=== PATIENT | male | born 1940 | race Caucasian/White ===

== ENCOUNTER → 2016-05-06 | Outpatient (CLI) | payer MEDICARE ==
[2016-05-06 14:07] LABS: CH 31.7; CHCM 34.2; HCT 39.3 % (39.0-53.0); HGB 13.1 gm/dL (13.0-17.5); MCH 31.1 pg (25.0-35.0); MCHC 33.4 g/dL (31.0-37.0); MCV 93.1 fL (80.0-100.0); Mean Platelet Volume 6.8; RBC 4.22 m/uL (4.30-5.90); RDW 14.7 % (11.5-15.5); WBC 7.7 k/uL (3.8-10.6)
[2016-05-06 14:10] LABS: INR 2.6 (<1.1); Prothrombin Time 24.6 sec (9.0-12.0)
[2016-05-06 14:48] LABS: Anion Gap 12 mmol/L; Blood Urea Nitrogen 15 mg/dL (9-20); Calcium 9.4 mg/dL (8.4-10.2); Carbon Dioxide 26 mmol/L (22-30); Chloride 97 mmol/L (98-107); Glucose 135 mg/dL (74-99); Non-African American GFR(MDRD) >60 (>60 ml/min/1.73 sqM); Potassium 4.5 mmol/L (3.5-5.1); Sodium 135 mmol/L (137-145)
== END | disposition home or self-care (01) ==
LOC: LABWHC1 13:24
PROVIDERS: ATTEND Internal Medicine Clinical Cardiac Electrophysiology
DX: I10 Essential (primary) hypertension (principal); I42.8 Other cardiomyopathies; I44.2 Atrioventricular block, complete
CPT/HCPCS: 36415; 80048; 85027; 85610

== ENCOUNTER 2016-05-13 13:50 | Day surgery (SDC) | payer MEDICARE ==
[2016-05-07 10:28] VITALS: BMI 27.3
[~2016-05-13 13:50] MED LIST: CLINDAMYCIN 600 MG in SODIUM CHLORIDE 0.9% IRRIGATIO 250 ML IRRIGATION ONE; CLINDAMYCIN 900 MG in DEXTROSE 5% IN WATER 50 ML IVPB ONE
[2016-05-13] MEDS: SODIUM CHLORIDE 0.9% 1,000 ML IV SCH ×2 (14:06→18:34)
[2016-05-13 14:19] LABS: Glucose,Whole Blood 71 mg/dL (75-99)
[2016-05-13 14:33] LABS: INR 2.2 (<1.1); Prothrombin Time 20.8 sec (9.0-12.0)
[2016-05-13] MEDS ORDERED: diphenhydrAMINE 50 MG/ML 1 ML VIAL ONE (16:13)
[2016-05-13] MEDS ORDERED: MIDAZOLAM 2 MG/2 ML VIAL ONE (16:13)
[2016-05-13] MEDS ORDERED: fentaNYL (PF) 50 MCG/ML 2 ML AMP ONE (16:13)
[2016-05-13] MEDS ORDERED: CLINDAMYCIN 150 MG/ML 4 ML VIAL IVPB ONE (16:21)
[2016-05-13] MEDS ORDERED: LIDOCAINE 2% INJ 20 MG/ML SQ ONE (16:38)
[2016-05-13] MEDS ORDERED: LIDOCAINE 1% INJ 10MG/ML (20 ML MDV) SQ ONE (16:55)
[2016-05-13] MEDS ORDERED: ACETAMINOPHEN TAB 325 MG TAB PO PRN (17:27)
[2016-05-13] MEDS ORDERED: HYDROcodone/APAP 5-325MG 1 EACH TAB PO PRN (17:27)
[2016-05-13] MEDS: metFORMIN 500 MG TAB PO SCH (19:27)
[2016-05-13] MEDS: LACTATED RINGERS 1,000 ML IV SCH (20:06)
[2016-05-13 20:37] LABS: Glucose,Whole Blood 122 mg/dL (75-99)
[2016-05-13] MEDS: SOTALOL 80 MG TAB PO SCH (20:45)
[2016-05-13] MEDS: METOPROLOL TARTRATE 25 MG TAB PO SCH (20:45)
[2016-05-13] MEDS ORDERED: LOSARTAN 50 MG TAB PO SCH (21:00)
[2016-05-13] MEDS ORDERED: ATORVASTATIN 10 MG TAB PO SCH (21:00)
[2016-05-13] MEDS ORDERED: ASPIRIN 81 MG CHEW PO SCH (21:00)
--- NOTE | 2016-05-13 21:43 | PCN ---
DATE OF PROCEDURE: Mr. Bennie Blake is 76-year-old male patient who has a dual-chamber biventricular ICD. He has complete heart block. He also has a history of ventricular tachycardia and is on antiarrhythmic drug therapy. He was brought in for biventricular ICD generator change for a battery on advisory because he has complete heart block as well as ventricular tachyarrhythmias. PROCEDURE #1: Transvenous temporary pacemaker placement. The right groin was prepped and draped as per protocol. Lidocaine 1% was used for local anesthesia. A 6 Polish sheath was placed in the right femoral vein. Via this a quadripolar catheter was positioned in the RV. Pacing threshold was less than 1 mA. Pacing was performed through the procedure and this TVP was removed under fluoroscopy at the end of the procedure. Hemostasis was assured. PROCEDURE #2: The left pectoral area was prepped and draped as per protocol. Lidocaine 1% was used for local anesthesia. An incision was made directly over the previous surgical site and carried down to the level of the generator. The generator was explanted. Partial capsulectomy was performed. Pocket irrigation was performed. The explanted generator was a [employer] model #3265-40, serial #[id number]. This was originally implanted in 2012. The new generator that was implanted was a [employer] model #PM8633-51W, serial #[id number]. This was then connected to the pacemaker leads. The P waves were 2.2 mV. Atrial pacing impedance 440 ohms. Atrial pacing threshold 0.75 v at 0.5 ms. The RV pacing impedance was 350 ohms. Pacing threshold 1.25 v at 0.5 ms. LV pacing impedance pacing was 940 ohm. Pacing threshold was 1.125 v at 0.6 ms. The device was programmed to DDDR at ( ) bpm. MADIT-RIT programming was programmed with appropriate antitachycardia pacing, cardioversion and defibrillation. This time DFT testing was not performed and will be deferred until later. RESULT: Successful ICD generator change for device on advisory. Transvenous temporary pacing was performed prior to the generator change. Patient tolerated the procedure well without any acute complications.
[2016-05-13] MEDS: CLINDAMYCIN 900 MG in DEXTROSE 5% IN WATER 50 ML IVPB SCH ×2 (22:45)
[2016-05-14] MEDS: LACTATED RINGERS 1,000 ML IV SCH (04:53)
[2016-05-14] MEDS: CLINDAMYCIN 900 MG in DEXTROSE 5% IN WATER 50 ML IVPB SCH ×6 (04:53→16:36)
[2016-05-14] MEDS ORDERED: LEVOTHYROXINE 75 MCG TAB PO SCH (06:30)
[2016-05-14 07:20] LABS: Glucose,Whole Blood 129 mg/dL (75-99)
[2016-05-14] MEDS ORDERED: PANTOPRAZOLE 40 MG TABLET PO SCH (07:30)
[2016-05-14] MEDS: SOTALOL 80 MG TAB PO SCH (08:27)
[2016-05-14] MEDS: METOPROLOL TARTRATE 25 MG TAB PO SCH (08:27)
[2016-05-14] MEDS ORDERED: SPIRONOLACTONE 25 MG TAB PO SCH (09:00)
--- NOTE | 2016-05-14 10:47 | PN ---
Mr. Bennie Blake is doing well. He has no chest pain. No dizziness, lightheadedness. He is lying comfortably in bed. His ICD generator change site is healing well without any hematoma. He is afebrile. His pulse rate is in the 50s. Blood pressure 119/63. Heart sounds are normal. Breath sounds are normal. No S3 gallop. No rhonchi. No crackles. Abdomen is soft, nontender. Extremities are warm. No edema. IMPRESSION: 1. History of cardiomyopathy. 2. History of complete heart block. 3. History of ventricular tachycardia requiring therapies. Status post Bi-V ICD implant with [employer] generator on advisory. ICD generator change yesterday doing well. PLAN: Discharge home after completion of IV antibiotics and follow up in the office in 5 days in the device clinic and follow up with primary [employer] supervisor.
[2016-05-14 12:15] LABS: Glucose,Whole Blood 119 mg/dL (75-99)
[2016-05-14 15:20] VITALS: BP 109/64; PULSE 54; RESP 16; TEMP 98.4
[2016-05-14 17:24] LABS: Glucose,Whole Blood 126 mg/dL (75-99)
[2016-05-14] MEDS: metFORMIN 500 MG TAB PO SCH (17:49)
== END 2016-05-14 18:13 | disposition home or self-care (01) ==
LOC: CATHEP 13:50 → 3OBS 17:40 → CATHEP 05-14 18:13
PROVIDERS: ATTEND Internal Medicine Clinical Cardiac Electrophysiology
DX: Z45.02 Encounter for adjustment and management of automatic implantable cardiac defibrillator (principal); I42.0 Dilated cardiomyopathy; I44.2 Atrioventricular block, complete; I47.2 Ventricular tachycardia; I11.0 Hypertensive heart disease with heart failure; I50.9 Heart failure, unspecified; E78.5 Hyperlipidemia, unspecified; I48.0 Paroxysmal atrial fibrillation; I25.10 Atherosclerotic heart disease of native coronary artery without angina pectoris; Z95.1 Presence of aortocoronary bypass graft; E07.9 Disorder of thyroid, unspecified; E11.9 Type 2 diabetes mellitus without complications; J44.9 Chronic obstructive pulmonary disease, unspecified; K21.9 Gastro-esophageal reflux disease without esophagitis; Z79.01 Long term (current) use of anticoagulants; Z79.84 Long term (current) use of oral hypoglycemic drugs; Z79.82 Long term (current) use of aspirin; Z79.899 Other long term (current) drug therapy; Z88.0 Allergy status to penicillin; Z87.891 Personal history of nicotine dependence
CPT/HCPCS: 33264; 85610; C1894; C1769 ×2; C1730; C1882; J2001 ×2; 99152; 99153

== ENCOUNTER → 2016-07-11 | Outpatient (CLI) | payer MEDICARE ==
--- NOTE | 2016-07-11 09:45 | CT ---
EXAMINATION TYPE: CT chest w con DATE OF EXAM: 07/11/2016 9:32 AM COMPARISON: Previous study dated 09/16/2013 HISTORY: Rib pain. Melanoma. CT DLP: 653 mGycm Automated exposure control for dose reduction was used. CONTRAST: CT scan of the chest is performed with IV Contrast, patient injected with 100 ml mL of Omnipaque 300. FINDINGS: There is apical scarring present bilaterally. There is mild interstitial change in the uppe r lobes bilaterally. No parenchymal nodules are seen. There is no significant axillary, mediastinal or hilar adenopathy. There is no pleural or pericardial fluid. The heart is not enlarged. There is a bipolar pacemaker in place. There is moderate hiatal hernia present. There is a lobulated 1.4 cm low attenuating lesion within the posterior segment of the right lobe of the liver. The gallbladder has been removed. There is been interval development of bilateral adrenal mass lesions. That on the right measures 4.4 cm. That on the left measures 7.6 cm. Visualized portions of the upper abdomen are otherwise normal. There is mild hypertrophic spondylosis within the spine. IMPRESSION: 1. Interval development of large, bilateral adrenal masses. 2. Stable low attenuating lesion within the liver. 3. Interstitial change within the lungs. 4. Moderate hiatal hernia. 5. Degenerative changes within the spine.
== END | disposition home or self-care (01) ==
LOC: RADCTMAIN 08:53
PROVIDERS: ATTEND Internal Medicine Hematology & Oncology
DX: Z03.89 Encounter for observation for other suspected diseases and conditions ruled out (principal); C43.70 Malignant melanoma of unspecified lower limb, including hip; E27.9 Disorder of adrenal gland, unspecified; R07.81 Pleurodynia; R68.89 Other general symptoms and signs; Z88.0 Allergy status to penicillin
CPT/HCPCS: 71260; Q9967

== ENCOUNTER → 2016-11-04 | Outpatient (CLI) | payer MEDICARE ==
[2016-11-04 09:54] LABS: Blood Urea Nitrogen 14 mg/dL (9-20); Non-African American GFR(MDRD) >60 (>60 ml/min/1.73 sqM)
--- NOTE | 2016-11-04 11:57 | CT ---
EXAMINATION TYPE: CT ChestAbdPelvis w con DATE OF EXAM: 11/04/2016 COMPARISON: 07/11/[address] chest abdomen pelvis 09/16/2013 HISTORY: Melanoma CT DLP: 1488 mGycm CONTRAST: CT scan of the chest, abdomen and pelvis is performed with Oral Contrast and with IV Contrast, patien t injected with 100 mL of Omnipaque 300. CT Chest: LUNGS: The lungs are clear and free of infiltrate or atelectasis. No pulmonary nodule or mass is det ected. No evidence for pleural effusion. MEDIASTINUM: Thoracic aorta is of normal caliber. The heart is enlarged. No evidence for mediastin al mass or adenopathy. Small fixed sliding-type hiatal hernia. HILAR STRUCTURES: No evidence for mass. No hilar adenopathy is appreciated. OTHER: No significant abnormality. CONTRAST CT ABDOMEN AND PELVIS FINDINGS: LIVER/GB: No calcified gallstones. Stable hypoattenuating lesion within the posterior segment right hepatic lobe measuring 1.7 cm. No additional lesions identified. Biliary tree is of normal caliber. PANCREAS: No inflammation. No distinct mass. SPLEEN: No splenic enlargement. No lesion seen. ADRENALS: Bilateral adrenal masses persist although are smaller in size. Right sided mass measures 2. 5 cm versus 4.4 cm previously. Left-sided adrenal mass measures 6.5 cm versus 7.6 cm previously. KIDNEYS/BLADDER: No hydronephrosis. No nephrolithiasis. No disctinct renal mass. Persistent disten tion of the urinary bladder with prostate enlargement and likely on the basis of bladder outlet obstr uction. BOWEL: Normal appendix. Normal bowel caliber. No inflammation. GENITAL ORGANS: Prostate gland enlargement. LYMPH NODES: No greater than 1cm abdominal or pelvic lymph nodes are appreciated. AORTA: No significant abnormality. OSSEOUS STRUCTURES: Lucent lesions of T5, L2 and L4 were present on prior examination of 2013 and rev eal no significant interval change. OTHER: No significant additional abnormality is seen. IMPRESSION: 1. Adrenal masses persist although are smaller in size. 2. Stable hepatic lesion which may reflect a cyst. 3. Stable lucent lesions of the spine as discussed above. No new lesions identified at this time.
== END | disposition home or self-care (01) ==
LOC: RADCTMAIN 09:19
PROVIDERS: ATTEND Internal Medicine Hematology & Oncology
DX: C43.70 Malignant melanoma of unspecified lower limb, including hip (principal); E27.8 Other specified disorders of adrenal gland; K76.89 Other specified diseases of liver
CPT/HCPCS: 82565; 84520; 71260; 74177; 36415; Q9967

== ENCOUNTER → 2017-01-27 | Outpatient (CLI) | payer MEDICARE ==
[2017-01-27 11:45] LABS: Blood Urea Nitrogen 15 mg/dL (9-20); Non-African American GFR(MDRD) >60 (>60 ml/min/1.73 sqM)
--- NOTE | 2017-01-27 13:05 | CT ---
EXAMINATION TYPE: CT ChestAbdPelvis w con DATE OF EXAM: 01/27/2017 COMPARISON: 11/04/2016 HISTORY: Melanoma CT DLP: 1534.6 mGycm Automated exposure control for dose reduction was used. CONTRAST: CT scan of the chest, abdomen and pelvis is performed with Oral Contrast and with IV Contrast, patien t injected with 100 mL of Omnipaque 300. FINDINGS: LUNGS: The lungs are grossly clear, there is no concerning parenchymal mass or nodule identified. T here is no pleural effusion or pneumothorax seen. The tracheobronchial tree is patent. Small blebs a re noted. MEDIASTINUM: There is stable 1.1 cm in short axis lymphadenopathy in the subcarinal region unchanged from prior exam. Additional areas of shotty adenopathy noted.Small hiatal hernia. Heart is enlarged. Biapical pleural thickening noted. Cardiac device noted. OTHER: No additional significant abnormality is seen. LIVER/GB: Stable hypodense lesion within the posterior segment right lobe the liver measuring 1.7 cm. . Postcholecystectomy changes stable. PANCREAS: No significant abnormality is seen. SPLEEN: No significant abnormality is seen. ADRENALS: Left adrenal mass measures 6.5 cm and is stable. Right adrenal mass measures 2.4 cm is stab le. KIDNEYS: No significant abnormality is seen. BOWEL: Diverticulosis of the colon noted. Appendix normal.. LYMPH NODES: No greater than 1 cm abdominal or pelvic lymph nodes are appreciated. OSSEOUS STRUCTURES: Lucent lesions involving T5, L2, L3 and L4 are stable. Facet arthropathy and hype rtrophic and degenerative changes are noted. Appears to be a left pedicular involvement at L4 related to the lucent lesion. This is retrospectively stable dating back to 2013. OTHER: Prostate is enlarged and the bladder is distended with a bladder diverticulum. IMPRESSION: 1. Stable adrenal masses bilaterally. 2. Stable hepatic lesion. 3. Stable lucent lesions involving the vertebral column. Suspect left pedicular involvement at L4 and right pedicular involvement of L3. This may encroach upon the neural foramina. Degree of Canal steno sis also suspected. This is stable dating back to 2013. 5. The prostate is enlarged and the bladder is markedly distended correlate for obstruction. 6. There is a stable left mid abdominal mesenteric mass measuring 1.9 cm unchanged from the previous exam. This may represent an area of adenopathy or a primary mesenteric mass. However, findings are u nchanged from the most recent exam of 2017 but not identified on the exam of 2014. 7 there is a stable hiatal hernia however contrast is seen extending up into the upper thoracic esoph candida which may place the patient at risk for developing aspiration. Correlate clinically.
== END | disposition home or self-care (01) ==
LOC: RADCTMAIN 10:49
PROVIDERS: ATTEND Internal Medicine Hematology & Oncology
DX: N40.0 Benign prostatic hyperplasia without lower urinary tract symptoms (principal); K76.89 Other specified diseases of liver; E27.8 Other specified disorders of adrenal gland; N32.89 Other specified disorders of bladder; K44.9 Diaphragmatic hernia without obstruction or gangrene; C43.70 Malignant melanoma of unspecified lower limb, including hip
CPT/HCPCS: 82565; 84520; 71260; 74177; 36415; Q9967

== ENCOUNTER 2017-02-23 10:08 | Emergency (ER) | payer MEDICARE ==
[2017-02-23 10:19] VITALS: RESP 18
[2017-02-23] MEDS ORDERED: SODIUM CHLORIDE 0.9% 500 ML IV STA ×2 (10:22→11:55)
[2017-02-23] MEDS ORDERED: RX INFO: IV CONTRAST WAS GIVEN 1 EACH MISC MISCELLANE PRN (10:22)
[2017-02-23] MEDS ORDERED: ONDANSETRON 4 MG/2 ML VIAL IVP STA (10:22)
[2017-02-23 10:51] LABS: Basophils % (A) 1 %; CH 33.8; CHCM 35.9; Eosinophils # (A) 0.5 k/uL (0-0.7); Eosinophils % (A) 7 %; HCT 29.8 % (39.0-53.0); HDW 3.32; HGB 10.2 gm/dL (13.0-17.5); Luc # (Auto) 0.17; Luc % (Auto) 2; Lymphocytes # (A) 2.1 k/uL (1.0-4.8); Lymphocytes % (A) 29 %; MCH 32.4 pg (25.0-35.0); MCHC 34.2 g/dL (31.0-37.0); MCV 94.6 fL (80.0-100.0); Mean Platelet Volume 7.2; Monocytes # (A) 0.8 k/uL (0-1.0); Monocytes % (A) 11 %; Neutrophils # (A) 3.6 k/uL (1.3-7.7); Neutrophils % (A) 49 %; RBC 3.15 m/uL (4.30-5.90); RDW 13.2 % (11.5-15.5); WBC 7.2 k/uL (3.8-10.6); WBC (Perox) 7.73
--- NOTE | 2017-02-23 10:53 | ED ---
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 Stevens oncologist) and radiation in 2013, COPD, diabetes, GERD, hyperlipidemia, prostate disorder, thyroid disorder, AICD placement and CABG presenting for evaluation of nausea and vomiting for the last 2 weeks. He states onset was gradual and has progressively worsened. He denies any associated abdominal pain, diarrhea, fevers, chills, chest pain, shortness of breath. Last chemo was last Thursday and he states that he doesn't have any associated abnormal symptoms following treatments. Reason for coming in today and not earlier was due to worsening weakness today nearly resulting in a fall however his was able to catch him. He denies any syncope/presyncope. He has not followed up with his PCP or his oncologist concerning these symptoms. - Related Data Home Medications Medication Instructions Recorded Confirmed Aspirin 81 mg PO HS 10/09/14 02/23/17 Atorvastatin [Lipitor] 10 mg PO HS 10/09/14 02/23/17 Levothyroxine Sodium [Synthroid] 75 mcg PO DAILY 10/09/14 02/23/17 Omeprazole [PriLOSEC] 20 mg PO QAM 10/09/14 02/23/17 Oxybutynin Chloride [Ditropan] 5 mg PO HS 10/09/14 02/23/17 Sotalol HCl [Sotalol] 160 mg PO BID 10/09/14 02/23/17 Spironolactone [Aldactone] 12.5 mg PO DAILY 10/09/14 02/23/17 Warfarin Sodium [Warfarin Sodium] 5 mg PO SUMOWEFRSA 10/09/14 02/23/17 metFORMIN HCL [Glucophage] 500 mg PO AC-SUPPER 10/09/14 02/23/17 Docusate [Colace] 100 mg PO BID 12/03/15 02/23/17 Losartan Potassium 100 mg PO HS 12/03/15 02/23/17 Metoprolol Tartrate [Lopressor] 25 mg PO BID 11/13/17 11/13/17 Warfarin [Coumadin] 2.5 mg PO TUTH 02/23/17 02/23/17 Previous Rx's Medication Instructions Recorded Ondansetron [Zofran ODT] 4 mg PO Q8HR #7 tab 02/23/17 Allergies Allergy/AdvReac Type Severity Reaction Status Date / Time Penicillins Allergy Unknown Verified 02/23/17 11:04 Childhood Review of Systems ROS Statement: Those systems with pertinent positive or pertinent negative responses have been documented in the HPI. ROS Other: All systems not noted in ROS Statement are negative. Constitutional: Reports: weakness. Denies: fever, chills, night sweats Eyes: Denies: eye discharge, vision change ENT: Denies: throat pain, congestion Respiratory: Denies: cough, dyspnea, wheezes Cardiovascular: Denies: chest pain, palpitations, dyspnea on exertion Endocrine: Reports: fatigue. Denies: polydipsia, polyuria Gastrointestinal: Reports: nausea, vomiting. Denies: abdominal pain, diarrhea, hematemesis, melena, hematochezia Genitourinary: Denies: urgency, dysuria Musculoskeletal: Denies: back pain, joint swelling Skin: Denies: rash, lesions Neurological: Reports: weakness (Generalized). Denies: headache, numbness, paresthesias, abnormal gait, vertigo Psychiatric: Denies: anxiety, depression Hematological/Lymphatic: Denies: easy bleeding, easy bruising Past Medical History Past Medical History: COPD, Diabetes Mellitus, GERD/Reflux, Hyperlipidemia, Prostate Disorder, Thyroid Disorder Additional Past Medical History / Comment(s): SEE DR ZIMMER'S H&P,INCREASED FATIGUE,EMPHYSEMA,BRONCHITIS, MALIGNANT MELANOMA METS TO SPINE REC 6 TX RADIATION-APR 2013 History of Any Multi-Drug Resistant Organisms: None Reported Past Surgical History: AICD, Coronary Bypass/CABG Additional Past Surgical History / Comment(s): CABG-"CLEANED PUMONARY ARTERY", MELANOMA AND 10 LYMPHNODES REMOVED RT LEG,ORCHIECTOMY,REPAIR FINGER AMPUTATON Past Anesthesia/Blood Transfusion Reactions: No Reported Reaction Type of Cardiac Device: AICD Device Placement Date:: 2012 [facility] LT CHEST Past Psychological History: No Psychological Hx Reported Smoking Status: Former smoker Past Alcohol Use History: None Reported Past Drug Use History: None Reported - Past Family History Mother Family Medical History: Cancer Additional Family Medical History / Comment(s): cervical cancer Father Family Medical History: Myocardial Infarction ([place]) Son(s) Family Medical History: Myocardial Infarction ([place]) Additional Family Medical History / Comment(s): SONS X 2 General Exam Limitations: no limitations General appearance: alert, in no apparent distress Head exam: Present: atraumatic, normocephalic, normal inspection Eye exam: Present: normal appearance, PERRL, EOMI. Absent: scleral icterus, conjunctival injection, periorbital swelling ENT exam: Present: mucous membranes dry, normal external ear exam. Absent: mucous membranes moist Neck exam: Present: normal inspection. Absent: tenderness, meningismus, lymphadenopathy Respiratory exam: Present: normal lung sounds bilaterally. Absent: respiratory distress, wheezes, rales, rhonchi, stridor Cardiovascular Exam: Present: regular rate, normal rhythm, normal heart sounds. Absent: systolic murmur, diastolic murmur, rubs, gallop, clicks GI/Abdominal exam: Present: soft, normal bowel sounds. Absent: distended, tenderness, guarding, rebound, rigid Rectal exam: Present: deferred Extremities exam: Present: normal inspection, full ROM, normal capillary refill. Absent: tenderness, pedal edema, joint swelling, calf tenderness Back exam: Present: normal inspection, full ROM Neurological exam: Present: alert, oriented X3, CN II-XII intact, normal gait Psychiatric exam: Present: normal affect, normal mood Skin exam: Present: warm, dry, intact, normal color Course Vital Signs 02/23/17 02/23/17 02/23/17 10:09 10:22 12:18 Temperature 99.4 F 99.2 F Pulse Rate 67 61 61 Respiratory 18 18 18 Rate Blood Pressure 104/52 92/55 O2 Sat by Pulse 96 96 97 Oximetry 02/23/17 13:27 Temperature 98.7 F Pulse Rate 60 Respiratory 18 Rate Blood Pressure 110/54 O2 Sat by Pulse 96 Oximetry Medical Decision Making - Medical Decision Making 77-year-old male with past medical history as noted in HPI presenting for evaluation of nausea and vomiting for the past 2 weeks. On physical exam he is in no apparent distress resting comfortably in bed, a and O 3 and answering all questions appropriately. Abdomen is soft and nontender without peritoneal signs of guarding, rigidity, or rebound. Lungs are clear to auscultation bilaterally. He does have dry mucous membranes orally which coincides with his history of nausea and vomiting with decreased oral intake however he claims this is due to decreased appetite and not due to pain. Remainder of exam is benign. We will obtain labs, EKG, and CT abdomen and pelvis. Also provide a small IV fluid bolus and Zofran. Labs significant for an elevated INR at 3.8 and a creatinine of 1.41. Patient given another bolus of normal saline IV fluids. CT abdomen and pelvis showed no acute process and no changes in previous abnormalities. He was reevaluated and had resolution of his nausea. He also stated that he felt like he had more energy and was ambulatory to the hallway without ataxia or unsteady gait. Results were discussed with the patient and he stated at this time he would be comfortable being discharged if he could follow-up with his primary care doctor within the next couple days. Dr. Frye was informed of all results and agreed with plan to have the patient discharged and to follow-up in his office either tomorrow or Thursday. The patient was informed of this discussion and advised to make an appointment today. He is further advised to return to this facility if his symptoms should worsen or persist. The patient acknowledged an understanding of this information and agreed with this plan of care. - Lab Data Result diagrams: 02/23/17 10:22 02/23/17 10:22 Lab Results 02/23/17 02/23/17 02/23/17 Range/Units 10:22 10:22 10:22 WBC 7.2 (3.8-10.6) k/uL RBC 3.15 L (4.30-5.90) m/uL Hgb 10.2 L (13.0-17.5) gm/dL Hct 29.8 L (39.0-53.0) % MCV 94.6 (80.0-100.0) fL MCH 32.4 (25.0-35.0) pg MCHC 34.2 (31.0-37.0) g/dL RDW 13.2 (11.5-15.5) % Plt Count 200 (150-450) k/uL Neutrophils % 49 % Lymphocytes % 29 % Monocytes % 11 % Eosinophils % 7 % Basophils % 1 % Neutrophils # 3.6 (1.3-7.7) k/uL Lymphocytes # 2.1 (1.0-4.8) k/uL Monocytes # 0.8 (0-1.0) k/uL Eosinophils # 0.5 (0-0.7) k/uL Basophils # 0.0 (0-0.2) k/uL PT (9.0-12.0) sec INR (<1.2) APTT (22.0-30.0) sec Sodium 134 L (137-145) mmol/L Potassium 3.9 (3.5-5.1) mmol/L Chloride 104 (98-107) mmol/L Carbon Dioxide 20 L (22-30) mmol/L Anion Gap 10 mmol/L BUN 14 (9-20) mg/dL Creatinine 1.41 H (0.66-1.25) mg/dL Est GFR (MDRD) Af Amer 59 (>60 ml/min/1.73 sqM) Est GFR (MDRD) Non-Af 48 (>60 ml/min/1.73 sqM) Glucose 99 (74-99) mg/dL Plasma Lactic Acid Yanick 1.3 (0.7-2.0) mmol/L Calcium 9.0 (8.4-10.2) mg/dL Total Bilirubin 0.8 (0.2-1.3) mg/dL AST 32 (17-59) U/L ALT 34 (21-72) U/L Alkaline Phosphatase 52 (38-126) U/L Troponin I (0.000-0.034) ng/mL NT-Pro-B Natriuret Pep pg/mL Total Protein 6.8 (6.3-8.2) g/dL Albumin 3.4 L (3.5-5.0) g/dL Lipase 55 (23-300) U/L 02/23/17 02/23/17 02/23/17 Range/Units 10:22 10:22 10:22 WBC (3.8-10.6) k/uL RBC (4.30-5.90) m/uL Hgb (13.0-17.5) gm/dL Hct (39.0-53.0) % MCV (80.0-100.0) fL MCH (25.0-35.0) pg MCHC (31.0-37.0) g/dL RDW (11.5-15.5) % Plt Count (150-450) k/uL Neutrophils % % Lymphocytes % % Monocytes % % Eosinophils % % Basophils % % Neutrophils # (1.3-7.7) k/uL Lymphocytes # (1.0-4.8) k/uL Monocytes # (0-1.0) k/uL Eosinophils # (0-0.7) k/uL Basophils # (0-0.2) k/uL PT 37.0 H (9.0-12.0) sec INR 3.8 H (<1.2) APTT 42.3 H (22.0-30.0) sec Sodium (137-145) mmol/L Potassium (3.5-5.1) mmol/L Chloride (98-107) mmol/L Carbon Dioxide (22-30) mmol/L Anion Gap mmol/L BUN (9-20) mg/dL Creatinine (0.66-1.25) mg/dL Est GFR (MDRD) Af Amer (>60 ml/min/1.73 sqM) Est GFR (MDRD) Non-Af (>60 ml/min/1.73 sqM) Glucose (74-99) mg/dL Plasma Lactic Acid Yanick (0.7-2.0) mmol/L Calcium (8.4-10.2) mg/dL Total Bilirubin (0.2-1.3) mg/dL AST (17-59) U/L ALT (21-72) U/L Alkaline Phosphatase (38-126) U/L Troponin I 0.013 (0.000-0.034) ng/mL NT-Pro-B Natriuret Pep 1410 pg/mL Total Protein (6.3-8.2) g/dL Albumin (3.5-5.0) g/dL Lipase (23-300) U/L 02/23/17 10:51 Electronic ventricular pacemaker with a rate of 65, RAYMON 90, QRS 114, QT/QTc 492/ 511. Disposition Clinical Impression: Nausea and vomiting, Dehydration, WILLOW (acute kidney injury), Supratherapeutic INR Disposition: HOME SELF-CARE Condition: Stable Instructions: Acute Nausea and Vomiting (ED), Impaired Kidney Function (ED), Elevated INR (ED) Additional Instructions: Please use medication as discussed. Please follow up with family doctor if symptoms have not improved over the next two days. Please return to the emergency room if your symptoms increase or worsen or for any other concerns. Please hold the Coumadin and do not take another dose until you follow-up with Dr. Frye on Thursday. If you're unable to get an appointment for Thursday either return to this facility or call Dr. Frye office once more. Prescriptions: Ondansetron [Zofran ODT] 4 mg PO Q8HR #7 tab Referrals: Michael Frye DO [Primary Care Provider] - 1-2 days Time of Disposition: 13:38
[2017-02-23 10:56] LABS: INR 3.8 (<1.2); Partial Thromboplastin Time 42.3 sec (22.0-30.0)
[2017-02-23 11:04] LABS: Potassium 3.9 mmol/L (3.5-5.1); Total Bilirubin 0.8 mg/dL (0.2-1.3); Total Protein 6.8 g/dL (6.3-8.2)
--- NOTE | 2017-02-23 11:52 | CT ---
EXAMINATION TYPE: CT abdomen pelvis wo con DATE OF EXAM: 02/23/2017 COMPARISON: 01/27/2017 HISTORY: Nausea and vomiting, history of melanoma on leg CT DLP: 970 mGycm Examination of the solid and hollow viscera is limited given the lack of contrast. FINDINGS: LUNG BASES: No evidence for nodule. No evidence for infiltrate. Fixed hiatal hernia noted. LIVER/GB: Cholecystectomy clips are in place. Stable 2 cm hypoattenuating lesion posterior segment ri ght hepatic lobe may reflect metastatic disease. PANCREAS: No pancreatic mass identified. No inflammatory process seen. SPLEEN: No evidence for splenomegaly. No intrasplenic lesions seen. ADRENALS: Stable adrenal masses measuring approximately 6.2 x 3.7 cm on the left versus 6.4 cm previo usly and 2.5 cm on the right versus 2.4 cm previously. KIDNEYS: The urinary bladder is distended with craniocaudal measurement of 18.7 cm. There is prostate gland enlargement and the findings may be rel ated to bladder outlet obstruction versus neurogenic bladder. BOWEL: Appendix has a normal appearance. No evidence of bowel obstruction. No inflammatory process. Lymph nodes: No evidence for adenopathy greater than 1 cm. Abdominal aorta: Atheromatous changes seen. No evidence for aneurysm. Genital organs: No significant abnormality. Other: Lucent osseous lesions are stable. IMPRESSION: 1. STABLE ADRENAL MASSES. 2. STABLE HEPATIC LESION. 3. STABLE MASS WITHIN THE SMALL BOWEL MESENTERY MEASURING APPROXIMATELY 2.4 CM. 4. Bladder outlet obstruction versus neurogenic bladder unchanged. 5. Prostate gland enlargement. Number 7 6 stable osseous lesions.
[2017-02-23 13:27] VITALS: BP 110/54; PULSE 60; TEMP 98.7
== END 2017-02-23 14:03 | disposition home or self-care (01) ==
LOC: EC 10:08
DX: N17.9 Acute kidney failure, unspecified (principal); R79.1 Abnormal coagulation profile; E86.0 Dehydration; E11.9 Type 2 diabetes mellitus without complications; K21.9 Gastro-esophageal reflux disease without esophagitis; E78.5 Hyperlipidemia, unspecified; N42.9 Disorder of prostate, unspecified; E07.9 Disorder of thyroid, unspecified; Z95.810 Presence of automatic (implantable) cardiac defibrillator; Z95.1 Presence of aortocoronary bypass graft; Z87.891 Personal history of nicotine dependence; Z88.0 Allergy status to penicillin; Z79.899 Other long term (current) drug therapy; Z79.84 Long term (current) use of oral hypoglycemic drugs; Z79.01 Long term (current) use of anticoagulants; Z79.82 Long term (current) use of aspirin; Z53.20 Procedure and treatment not carried out because of patient's decision for unspecified reasons
CPT/HCPCS: 36415; 74176; 80053; 83605; 83690; 83880; 84484; 85025; 85610; 85730; 93005; 96360; 96361; 99285

== ENCOUNTER → 2017-05-05 | Outpatient (CLI) | payer MEDICARE | END | disposition home or self-care (01) | LOC: LABWHC1 11:27 | PROVIDERS: ATTEND Internal Medicine Endocrinology, Diabetes & Metabolism | DX: E03.8 Other specified hypothyroidism (principal); E27.40 Unspecified adrenocortical insufficiency | CPT/HCPCS: 36415; 82024; 84443 ==

== ENCOUNTER 2017-05-21 05:54 | Day surgery (SDC) | payer MEDICARE ==
[2017-05-13 13:38] VITALS: BMI 27.3
[~2017-05-21 05:54] MED LIST changes: -CLINDAMYCIN 600 MG in SODIUM CHLORIDE 0.9% IRRIGATIO 250 ML IRRIGATION ONE; -CLINDAMYCIN 900 MG in DEXTROSE 5% IN WATER 50 ML IVPB ONE; +LACTATED RINGERS 1,000 ML IV SCH; +SODIUM CHLORIDE 0.9% 1,000 ML IV SCH
[2017-05-21 06:38] LABS: Glucose,Whole Blood 111 mg/dL (75-99)
[2017-05-21 06:45] LABS: INR 3.1 (<1.2); Prothrombin Time 27.6 sec (9.0-12.0)
[2017-05-21] MEDS ORDERED: fentaNYL (PF) 50 MCG/ML 2 ML AMP ONE (07:31)
[2017-05-21] MEDS ORDERED: ISOPROTERENOL 250 MCG/1.25 ML SYR IV ONE (07:31)
[2017-05-21] MEDS ORDERED: ePHEDrine SULFATE/0.9% NACL/PF 50 MG/5 ML SYRINGE IV ONE (07:31)
[2017-05-21] MEDS ORDERED: MIDAZOLAM 2 MG/2 ML VIAL ONE (07:31)
[2017-05-21 08:16] VITALS: TEMP 97.8
[2017-05-21 08:35] VITALS: PULSE 60
--- NOTE | 2017-05-21 08:46 | P.PCN ---
Preoperative Diagnosis: Procedure #1 Cinefluoroscopy of the leads Indication for the procedure Advisory lead, Riata ICD lead, [employer], to look for radiologic evidence of externalization Cinefluoroscopy of the leads performed. No evidence for fractures or externalization of the atrial, ICD lead and LV lead Procedure #2 ICD interrogation, biventricular Atrial pacing threshold 0.8 V at 0.5 ms, P waves 2.1 mV, pacing impedance 430 ohms RV pacing threshold 1.2 V at 0.5 ms, pacemaker dependent, pacing impedance 360 ohms LV pacing threshold 0.9 V at 0.6 ms, pacing impedance 1050 ohms High-voltage impedance 72 ohms MADIT RIT programming Procedure #3 Biventricular ICD interrogation Noninvasive program stimulation Programmed stimulation Isuprel Sinus cycle length 1003, QT 395 ms QRS 190 ms Ventricular extra stimulation performed per protocol, 2 drive trains, upper double extrastimuli. Ventricular extra stimulation with short a short sequences Burst stimulation Wide open Isuprel used Ventricular stimulation performed No ventricular tachycardia induced ICD interrogation, biventricular Anesthesia: MAC Disposition: same day
[2017-05-21 08:48] VITALS: RESP 18
[2017-05-21 09:14] VITALS: BP 97/53
== END 2017-05-21 09:15 | disposition home or self-care (01) ==
LOC: CATHEP 05:54
PROVIDERS: ATTEND Internal Medicine Clinical Cardiac Electrophysiology
DX: I49.01 Ventricular fibrillation (principal); I47.2 Ventricular tachycardia; Z79.01 Long term (current) use of anticoagulants; I42.8 Other cardiomyopathies; Z45.02 Encounter for adjustment and management of automatic implantable cardiac defibrillator; I10 Essential (primary) hypertension; E78.5 Hyperlipidemia, unspecified; Z87.891 Personal history of nicotine dependence; E11.9 Type 2 diabetes mellitus without complications; Z79.84 Long term (current) use of oral hypoglycemic drugs; Z79.899 Other long term (current) drug therapy; Z79.82 Long term (current) use of aspirin; Z88.0 Allergy status to penicillin
CPT/HCPCS: 93642; 76000; 85610; J2250; J3010

== ENCOUNTER 2017-06-06 09:05 | Inpatient (IN) | payer MEDICARE ==
[2017-06-06] MEDS ORDERED: SODIUM CHLORIDE 0.9% 1,000 ML IV ONE ×2 (09:09→11:10)
--- NOTE | 2017-06-06 09:13 | ED ---
Altered Mental Status HPI - General Stated Complaint: Weakness Time Seen by Provider: 06/06/17 09:05 Source: patient, EMS, RN notes reviewed Mode of arrival: EMS - History of Present Illness Initial Comments: This is a 76-year-old male with a history of type 2 diabetes history of adrenal insufficiency who states he was on the toilet having a bowel movement when he became dizzy and diaphoretic week with decreased responsiveness. His checked his blood sugar was 80 EMS was summoned repeat blood sugar is 123 he was noted have a blood pressure of 90/44 initially. He did respond to fluids. He currently arrives awake alert oriented 3. He denies any fevers chills nausea vomiting sweats. MD Complaint: altered mental status, decreased responsiveness - Related Data Home Medications Medication Instructions Recorded Confirmed Aspirin 81 mg PO HS 10/09/14 06/06/17 Omeprazole [PriLOSEC] 20 mg PO QAM 10/09/14 06/06/17 Oxybutynin Chloride [Ditropan] 5 mg PO HS 10/09/14 06/06/17 Spironolactone [Aldactone] 25 mg PO DAILY 10/09/14 06/06/17 Warfarin Sodium 5 mg PO W/SUPPER 10/09/14 06/06/17 Docusate [Colace] 200 mg PO DAILY@1200 12/03/15 06/06/17 Losartan Potassium 100 mg PO HS 12/03/15 06/06/17 Hydrocodone/Acetaminophen [[place] 1 tab PO QID PRN 03/04/17 06/06/17 5-325] Hydrocortisone [Cortef] 10 mg PO BID 05/13/17 06/06/17 Amiodarone [Cordarone] 400 mg PO DAILY 06/06/17 06/06/17 Levothyroxine Sodium [Synthroid] 75 mcg PO DAILY 06/06/17 06/06/17 Metoprolol Tartrate [Lopressor] 25 mg PO BID 06/06/17 06/06/17 Multivitamins, Thera [Multivitamin 1 tab PO DAILY@1200 06/06/17 06/06/17 (formulary)] metFORMIN HCL ER [Glucophage Xr] 500 mg PO HS 06/06/17 06/06/17 Allergies Allergy/AdvReac Type Severity Reaction Status Date / Time Penicillins Allergy Unknown Verified 06/06/17 12:33 Childhood Review of Systems ROS Statement: Those systems with pertinent positive or pertinent negative responses have been documented in the HPI. ROS Other: All systems not noted in ROS Statement are negative. Past Medical History Past Medical History: Cancer, COPD, Diabetes Mellitus, GERD/Reflux, Hyperlipidemia, Prostate Disorder, Thyroid Disorder Additional Past Medical History / Comment(s): SEE DR ZIMMER'S H&P,INCREASED FATIGUE,EMPHYSEMA,BRONCHITIS, MALIGNANT MELANOMA METS TO SPINE REC 6 [place] RADIATION-APR 2013 History of Any Multi-Drug Resistant Organisms: None Reported Past Surgical History: AICD, Coronary Bypass/CABG Additional Past Surgical History / Comment(s): CABG-"CLEANED PUMONARY ARTERY", MELANOMA AND 10 LYMPHNODES REMOVED RT LEG,ORCHIECTOMY,REPAIR FINGER AMPUTATON Past Anesthesia/Blood Transfusion Reactions: No Reported Reaction Type of Cardiac Device: AICD Device Placement Date:: 2012 [facility] LT CHEST Additional Past Alcohol Use History / Comment(s): started smoking 1974,QUIT SMOKING - Past Family History Mother Family Medical History: Cancer Additional Family Medical History / Comment(s): cervical cancer Father Family Medical History: Myocardial Infarction ([place]) Son(s) Family Medical History: Myocardial Infarction ([place]) Additional Family Medical History / Comment(s): SONS X 2 General Exam - General Exam Comments Initial Comments: This is a well-developed well-nourished awake alert oriented 3 male General appearance: alert, in no apparent distress Head exam: Present: atraumatic, normocephalic, normal inspection Eye exam: Present: normal appearance, PERRL, EOMI. Absent: scleral icterus, conjunctival injection, periorbital swelling ENT exam: Present: mucous membranes dry Neck exam: Present: normal inspection. Absent: tenderness, meningismus, lymphadenopathy Respiratory exam: Present: normal lung sounds bilaterally. Absent: respiratory distress, wheezes, rales, rhonchi, stridor Cardiovascular Exam: Present: regular rate, normal rhythm, normal heart sounds. Absent: systolic murmur, diastolic murmur, rubs, gallop, clicks GI/Abdominal exam: Present: soft, normal bowel sounds. Absent: distended, tenderness, guarding, rebound, rigid Extremities exam: Present: normal inspection, full ROM, normal capillary refill. Absent: tenderness, pedal edema, joint swelling, calf tenderness Back exam: Present: normal inspection Neurological exam: Present: alert, oriented X3, CN II-XII intact Psychiatric exam: Present: normal affect, normal mood Skin exam: Present: warm, dry, intact, pallor. Absent: rash Course Vital Signs 06/06/17 06/06/17 06/06/17 09:07 09:30 10:52 Temperature 98.4 F Pulse Rate 60 62 60 Respiratory 18 18 18 Rate Blood Pressure 120/57 92/51 84/41 O2 Sat by Pulse 96 98 98 Oximetry 06/06/17 06/06/17 06/06/17 11:23 11:42 12:04 Temperature Pulse Rate 60 66 55 L Respiratory 18 18 18 Rate Blood Pressure 80/47 87/47 82/45 O2 Sat by Pulse 98 98 99 Oximetry 06/06/17 06/06/17 06/06/17 12:37 13:20 14:00 Temperature Pulse Rate 60 34 L 60 Respiratory 18 18 18 Rate Blood Pressure 96/52 83/47 95/54 O2 Sat by Pulse 98 98 96 Oximetry Medical Decision Making - Medical Decision Making I did discuss the findings with the patient family members he did have several episodes of hypertension and did have at least 2 episodes of bradycardia. Is unclear whether this is a malfunction of the pacer. I did discuss the findings with Dr. Briceño who is covering Dr. Frye the patient will be admitted with cardiology consultation. He apparently doesn't normally runs a low blood pressure in the high 80s or low 90s per family. - Lab Data Result diagrams: 06/06/17 09:23 06/06/17 09:23 Lab Results 06/06/17 06/06/17 06/06/17 Range/Units 09:23 09:23 09:23 WBC 6.6 (3.8-10.6) k/uL RBC 3.29 L (4.30-5.90) m/uL Hgb 10.4 L (13.0-17.5) gm/dL Hct 31.8 L (39.0-53.0) % MCV 96.5 (80.0-100.0) fL MCH 31.6 (25.0-35.0) pg MCHC 32.7 (31.0-37.0) g/dL RDW 15.6 H (11.5-15.5) % Plt Count 221 (150-450) k/uL Neutrophils % 64 % Lymphocytes % 22 % Monocytes % 7 % Eosinophils % 5 % Basophils % 1 % Neutrophils # 4.2 (1.3-7.7) k/uL Lymphocytes # 1.4 (1.0-4.8) k/uL Monocytes # 0.5 (0-1.0) k/uL Eosinophils # 0.3 (0-0.7) k/uL Basophils # 0.1 (0-0.2) k/uL PT (9.0-12.0) sec INR (<1.2) APTT (22.0-30.0) sec Sodium 132 L (137-145) mmol/L Potassium 4.9 (3.5-5.1) mmol/L Chloride 98 (98-107) mmol/L Carbon Dioxide 23 (22-30) mmol/L Anion Gap 11 mmol/L BUN 29 H (9-20) mg/dL Creatinine 1.06 (0.66-1.25) mg/dL Est GFR (MDRD) Af Amer >60 (>60 ml/min/1.73 sqM) Est GFR (MDRD) Non-Af >60 (>60 ml/min/1.73 sqM) Glucose 88 (74-99) mg/dL POC Glucose (mg/dL) (75-99) mg/dL POC Glu Job Placement Counselor ID Calcium 9.4 (8.4-10.2) mg/dL Magnesium 1.6 (1.6-2.3) mg/dL Total Bilirubin 0.5 (0.2-1.3) mg/dL AST 36 (17-59) U/L ALT 61 (21-72) U/L Alkaline Phosphatase 69 (38-126) U/L Total Creatine Kinase 21 L (55-170) U/L CK-MB (CK-2) 0.2 (0.0-2.4) ng/mL CK-MB (CK-2) Rel Index 1.0 Troponin I <0.012 (0.000-0.034) ng/mL Total Protein 6.7 (6.3-8.2) g/dL Albumin 3.6 (3.5-5.0) g/dL TSH 43.900 H (0.465-4.680) mIU/L Free T4 1.53 (0.78-2.19) ng/dL 06/06/17 06/06/17 Range/Units 09:23 09:39 WBC (3.8-10.6) k/uL RBC (4.30-5.90) m/uL Hgb (13.0-17.5) gm/dL Hct (39.0-53.0) % MCV (80.0-100.0) fL MCH (25.0-35.0) pg MCHC (31.0-37.0) g/dL RDW (11.5-15.5) % Plt Count (150-450) k/uL Neutrophils % % Lymphocytes % % Monocytes % % Eosinophils % % Basophils % % Neutrophils # (1.3-7.7) k/uL Lymphocytes # (1.0-4.8) k/uL Monocytes # (0-1.0) k/uL Eosinophils # (0-0.7) k/uL Basophils # (0-0.2) k/uL PT 24.4 H (9.0-12.0) sec INR 2.7 H (<1.2) APTT 32.9 H (22.0-30.0) sec Sodium (137-145) mmol/L Potassium (3.5-5.1) mmol/L Chloride (98-107) mmol/L Carbon Dioxide (22-30) mmol/L Anion Gap mmol/L BUN (9-20) mg/dL Creatinine (0.66-1.25) mg/dL Est GFR (MDRD) Af Amer (>60 ml/min/1.73 sqM) Est GFR (MDRD) Non-Af (>60 ml/min/1.73 sqM) Glucose (74-99) mg/dL POC Glucose (mg/dL) 82 (75-99) mg/dL POC Glu Job Placement Counselor ID Milena Collins Calcium (8.4-10.2) mg/dL Magnesium (1.6-2.3) mg/dL Total Bilirubin (0.2-1.3) mg/dL AST (17-59) U/L ALT (21-72) U/L Alkaline Phosphatase (38-126) U/L Total Creatine Kinase (55-170) U/L CK-MB (CK-2) (0.0-2.4) ng/mL CK-MB (CK-2) Rel Index Troponin I (0.000-0.034) ng/mL Total Protein (6.3-8.2) g/dL Albumin (3.5-5.0) g/dL TSH (0.465-4.680) mIU/L Free T4 (0.78-2.19) ng/dL - EKG Data -: EKG Interpreted by Me (ABG total paced rhythm of 60 ND interval 128 QRS 164 QT since QTC of 456/45) - Radiology Data Radiology results: report reviewed (Review the imaging shows no definite acute findings.), image reviewed Disposition Clinical Impression: Near syncope, Pacemaker complications, Dehydration, Altered mental status Disposition: ADMITTED IP TO THIS [facility] Condition: Stable Referrals: Michael Frye DO [Primary Care Provider] - 1-2 days
[2017-06-06] MEDS ORDERED: HYDROCORTISONE SUCCINATE 100 MG/2 ML VIAL IV STA (09:19)
[2017-06-06 09:47] LABS: Glucose,Whole Blood 82 mg/dL (75-99)
[2017-06-06 09:56] LABS: Basophils # (A) 0.1 k/uL (0-0.2); Basophils % (A) 1 %; Eosinophils # (A) 0.3 k/uL (0-0.7); Eosinophils % (A) 5 %; HCT 31.8 % (39.0-53.0); HGB 10.4 gm/dL (13.0-17.5); Lymphocytes # (A) 1.4 k/uL (1.0-4.8); Lymphocytes % (A) 22 %; MCH 31.6 pg (25.0-35.0); MCHC 32.7 g/dL (31.0-37.0); MCV 96.5 fL (80.0-100.0); Monocytes # (A) 0.5 k/uL (0-1.0); Monocytes % (A) 7 %; Neutrophils # (A) 4.2 k/uL (1.3-7.7); Neutrophils % (A) 64 %; Platelet Count 221 k/uL (150-450); RBC 3.29 m/uL (4.30-5.90); RDW 15.6 % (11.5-15.5); WBC 6.6 k/uL (3.8-10.6)
[2017-06-06 09:59] LABS: INR 2.7 (<1.2); Partial Thromboplastin Time 32.9 sec (22.0-30.0); Prothrombin Time 24.4 sec (9.0-12.0)
[2017-06-06 10:00] LABS: ALT 61 U/L (21-72); AST 36 U/L (17-59); Albumin 3.6 g/dL (3.5-5.0); Alkaline Phosphatase 69 U/L (38-126); Anion Gap 11 mmol/L; Blood Urea Nitrogen 29 mg/dL (9-20); Calcium 9.4 mg/dL (8.4-10.2); Carbon Dioxide 23 mmol/L (22-30); Chloride 98 mmol/L (98-107); Glucose 88 mg/dL (74-99); Magnesium 1.6 mg/dL (1.6-2.3); Potassium 4.9 mmol/L (3.5-5.1); Sodium 132 mmol/L (137-145); Total Bilirubin 0.5 mg/dL (0.2-1.3); Total Protein 6.7 g/dL (6.3-8.2)
[2017-06-06 10:15] LABS: Creatine Kinase 21 U/L (55-170)
--- NOTE | 2017-06-06 10:22 | CT ---
EXAMINATION TYPE: CT brain brian guadalupe DATE OF EXAM: 06/06/2017 COMPARISON: NONE HISTORY: Weakness CT DLP: 1473.3 mGycm Automated exposure control for dose reduction was used. TECHNIQUE: CT scan of the head and cervical spine are performed without contrast. FINDINGS: BRAIN: There are generalized changes of sulcal prominence and ventriculomegaly, compatible with atrop hic change. There is diffuse periventricular white matter lucency, compatible with chronic white radha er ischemic change. There is been a previous lacunar infarct involving the [place]anger radiata on the left . No other focal lesion, mass effect or midline shift is seen. I do not see evidence of intracranial blood. There is chronic mucoperiosteal thickening involving the left maxillary and ethmoidal sinuses. The ma stoids are clear. The bony calvarium is intact. IMPRESSION: 1. NO ACUTE INTRACRANIAL ABNORMALITY. 2. PREVIOUS LACKMAN IN THE GRANGER RADIATA ON THE LEFT. 3. ATROPHIC CHANGE. 4. CHRONIC WHITE MATTER ISCHEMIC CHANGE. 5. CHRONIC SINUS MUCOSAL DISEASE. CERVICAL SPINE: There are emphysematous changes throughout the lungs. There is apical scarring presen t bilaterally. Prevertebral soft tissues are normal. Vertebral body height and alignment are maintained. Atlantoaxial relationships are normal. No fractur es are seen. There is degenerative disc disease and mild hypertrophic spondylosis at C5-6 and C6-7. T here is mild uncovertebral joint disease at these levels. There is facet arthropathy on the right at C4-5 and on the left at C5-6. No definite discal protrusion is seen. IMPRESSION: 1. NO ACUTE OSSEOUS LESION. 2. DEGENERATIVE CHANGE. 3. EMPHYSEMATOUS CHANGE.
[2017-06-06 10:28] LABS: Creatine Kinase MB 0.2 ng/mL (0.0-2.4); Troponin I <0.012 ng/mL (0.000-0.034)
--- NOTE | 2017-06-06 10:28 | XR ---
EXAMINATION TYPE: XR chest 2V DATE OF EXAM: 06/06/2017 HISTORY: altered mental status. REFERENCE: Previous study dated 03/04/2017. FINDINGS: There has been a midline sternotomy. There is a multilead pacing device in place on the left. The heart is enlarged. The lungs appear clear. I cannot exclude a small left effusion. IMPRESSION: 1. CARDIOMEGALY. 2. I CANNOT EXCLUDE A SMALL LEFT EFFUSION.
[2017-06-06 10:59] LABS: T4, Free (Free Thyroxine) 1.53 ng/dL (0.78-2.19)
[2017-06-06] MEDS ORDERED: SODIUM CHLORIDE 0.9% 500 ML IV ONE (13:27)
[2017-06-06] MEDS ORDERED: NALOXONE 0.4 MG/ML 1 ML VIAL IV PRN (14:09)
[2017-06-06] MEDS ORDERED: HYDROcodone/APAP 5-325MG 1 EACH TAB PO PRN (14:13)
[2017-06-06] MEDS ORDERED: ALPRAZolam 0.25 MG TAB PO PRN (17:04)
[2017-06-06] MEDS ORDERED: WARFARIN 5 MG TAB PO SCH (17:30)
[2017-06-06 20:04] VITALS: BMI 27.3
[2017-06-06] MEDS: metFORMIN 500 MG TAB PO SCH (20:55)
[2017-06-06] MEDS: HYDROCORTISONE 10 MG TAB PO SCH (20:56)
[2017-06-06] MEDS ORDERED: LOSARTAN 50 MG TAB PO SCH (21:00)
[2017-06-06] MEDS ORDERED: ASPIRIN 81 MG PO SCH (21:00)
[2017-06-06] MEDS ORDERED: TEMAZEPAM 15 MG CAP PO PRN (21:00)
[2017-06-06] MEDS ORDERED: METOPROLOL TARTRATE 25 MG TAB PO SCH (21:00)
[2017-06-06] MEDS ORDERED: OXYBUTYNIN CHLORIDE 5 MG TAB PO SCH (21:00)
[2017-06-06 21:07] LABS: Glucose,Whole Blood 175 mg/dL (75-99)
--- NOTE | 2017-06-06 22:30 | HP ---
HISTORY AND PHYSICAL I am covering for Dr. Frye. DATE OF SERVICE: 06/06/2017 CHIEF COMPLAINT: Weakness. HISTORY OF PRESENT ILLNESS: This 77-year-old gentleman with a past history of COPD, diabetes, GERD, hypertension, hyperlipidemia, history of prostate disorder, history of hypothyroidism being followed by Dr. Michael Frye in the outpatient setting apparently had complaints of weakness. The patient had a bowel movement after the patient became dizzy and diaphoretic and weak and the patient has found to have some hypotension and bradycardia. Pacemaker interrogation was done, but after IV fluids, patient felt much better. Patient admitted for further evaluation and treatment. There is no history of fever, rigors or chills. No history of headache, loss of consciousness or seizures. PAST MEDICAL HISTORY: History of COPD, diabetes, GERD, hyperlipidemia, history of hypothyroidism. MEDICATIONS: 1. Metformin 500 mg q.h.s. 2. Aldactone 25 mg daily. 3. Lopressor 25 mg b.i.d. 4. Synthroid 75 mcg p.o. daily. 5. Coumadin 5 mg with supper. 6. Ditropan 100 mg q.h.s. 7. Losartan 100 mg daily. 8. Cortef 10 mg p.o. b.i.d. 9. Aspirin 81 mg p.o. daily. 10.Multivitamin. 11.Prilosec 20 mg q.h.s. 12.Colace 200 mg. 13.Cordarone 200 mg p.o. daily. 14.[place] 1 tab p.o. q.i.d. p.r.n. ALLERGIES: PENICILLIN. FAMILY HISTORY: History of myocardial infarction. SOCIAL HISTORY: Previous history of smoking. No history of current smoking, alcohol intake. REVIEW OF SYSTEMS: ENT: No diminished vision or hearing. Cardiovascular as mentioned earlier. Respiratory: As mentioned earlier. Allergy/Immunology: No asthma or hayfever. Musculoskeletal: As mentioned earlier. Hematology/Oncology: No history of anemia. Endocrine: Hypothyroidism. Constitutional: As mentioned earlier. Dermatology: Negative. Rheumatology: Negative. GI no nausea or vomiting. no dysuria. Nervous System: As mentioned earlier. Psychiatric: As mentioned earlier. PHYSICAL EXAMINATION: The patient is alert and oriented times three. Pulse 62, blood pressure 95/54, respiration 18, temperature 97.7, pulse ox 98% on 2 L. HEENT: Conjunctivae normal. Oral mucosa dry. Neck is no jugular venous distention. No carotid bruit. No lymph node enlargement. Cardiovascular: S1, S2 muffled. Respiratory: Breath sounds diminished in the bases. No rhonchi. No crackles. ABDOMEN: Soft, nontender. No mass palpable. Legs no edema and no swelling. NERVOUS SYSTEM: Higher functions as mentioned earlier. Moves all four limbs. No focal deficits. SKIN: No ulcer, rash or bleeding. LABS: WBC 6.2, hemoglobin 10.5, INR 2.7. . TSH is 43.900 and free T4 is 1.53. ASSESSMENT: 1. Presyncope for evaluation possibly hypotension and bradycardia, possible vasovagal syndrome. 2. Chronic obstructive pulmonary disease. 3. Diabetes type 2. 4. History of gastroesophageal reflux disease. 5. Hyperlipidemia. 6. History of hypothyroidism. 7. AICD. 8. History of coronary artery disease/coronary artery bypass grafting. RECOMMENDATIONS AND DISCUSSION: In this 77-year-old gentleman who presented with multiple complex medical issues , we will monitor the patient closely, continue the current medications, management and symptomatic treatment. I recommend repeat labs. I would also recommend monitor PT/INR closely. Monitor telemetry. Cardiology consultation. Otherwise, IV fluids, gentle hydration, monitor fluid and electrolytes balance closely. The patient had a chest x- ray in the ER. The patient also had a CT scan of the head and cervical spine, which showed previous lesion in the [place] radiata, changes. DJD in the spine was noted. Continue to monitor as mentioned earlier. AICD interrogation did not reveal any acute abnormality either. The prognosis guarded. Further recommendations to follow. MMODL / IJN: [id number] / LEI
[2017-06-07 00:33] LABS: Appearance,Urine Clear (Clear); Bilirubin,Urine Negative (Negative); Blood,Urine Negative (Negative); Color,Urine Yellow; Glucose,Urine (UA) Negative (Negative); Ketones,Urine Negative (Negative); Leukocyte Esterase,Urine Negative (Negative); Nitrite,Urine Negative (Negative); Protein,Urine Negative (Negative); Specific Gravity,Urine 1.012 (1.001-1.035); Urobilinogen,Urine <2.0 mg/dL (<2.0)
[2017-06-07 06:04] LABS: Glucose,Whole Blood 110 mg/dL (75-99)
[2017-06-07 06:21] LABS: Basophils % (A) 0 %; Eosinophils # (A) 0.2 k/uL (0-0.7); Eosinophils % (A) 4 %; HCT 29.2 % (39.0-53.0); HGB 9.5 gm/dL (13.0-17.5); Lymphocytes # (A) 1.2 k/uL (1.0-4.8); Lymphocytes % (A) 20 %; MCH 31.7 pg (25.0-35.0); MCHC 32.3 g/dL (31.0-37.0); MCV 98.2 fL (80.0-100.0); Macrocytosis Slight; Mean Platelet Volume 6.7; Monocytes # (A) 0.5 k/uL (0-1.0); Monocytes % (A) 9 %; Neutrophils # (A) 3.8 k/uL (1.3-7.7); Neutrophils % (A) 65 %; Platelet Count 201 k/uL (150-450); RBC 2.98 m/uL (4.30-5.90); RDW 15.7 % (11.5-15.5); WBC 5.9 k/uL (3.8-10.6)
[2017-06-07 06:28] LABS: INR 3.1 (<1.2); Prothrombin Time 28.2 sec (9.0-12.0)
[2017-06-07] MEDS ORDERED: LEVOTHYROXINE 75 MCG TAB PO SCH (06:30)
[2017-06-07] MEDS ORDERED: LEVOTHYROXINE 100 MCG TAB PO SCH (06:30)
[2017-06-07 06:35] LABS: Anion Gap 9 mmol/L; Blood Urea Nitrogen 22 mg/dL (9-20); Calcium 8.7 mg/dL (8.4-10.2); Carbon Dioxide 23 mmol/L (22-30); Chloride 102 mmol/L (98-107); Glucose 104 mg/dL (74-99); Potassium 4.9 mmol/L (3.5-5.1); Sodium 134 mmol/L (137-145)
[2017-06-07] MEDS ORDERED: PANTOPRAZOLE 40 MG TABLET PO SCH (09:00)
[2017-06-07] MEDS ORDERED: METOPROLOL SUCCINATE (ER) 100 MG TAB.ER.24H PO SCH (09:00)
[2017-06-07] MEDS ORDERED: AMIODARONE 200 MG TAB PO SCH ×2 (09:00)
[2017-06-07] MEDS ORDERED: SPIRONOLACTONE 25 MG TAB PO SCH (09:00)
[2017-06-07] MEDS: metFORMIN 500 MG TAB PO SCH (10:09)
[2017-06-07] MEDS: HYDROCORTISONE 10 MG TAB PO SCH (10:09)
[2017-06-07 11:37] LABS: Glucose,Whole Blood 93 mg/dL (75-99)
[2017-06-07] MEDS ORDERED: MULTIVITAMINS, THERA 1 EACH TAB PO SCH (12:00)
[2017-06-07] MEDS ORDERED: DOCUSATE 100 MG CAP PO SCH (12:00)
[2017-06-07 13:20] VITALS: BP 113/58; PULSE 60; RESP 60; TEMP 97.8
--- NOTE | 2017-06-07 21:06 | CONS ---
CONSULTATION Mr. Bennie Blake is a 76-year-old gentleman with a known history of type 2 diabetes mellitus, adrenal insufficiency and hypothyroidism who apparently sat on a toilet bowel, became dizzy, lightheaded and came into the hospital. His blood sugar was 80. His blood pressure was 90/60. He responded to IV fluids. He feels better. Denies chest pain. He was admitted with a concern that there may be an issue with his pacemaker. His device has been interrogated. There is no evidence of any device malfunction and there were no significant arrhythmias. The patient probably had a vasovagal phenomena with some underlying dehydration. He is resting comfortably without symptoms. PAST MEDICAL HISTORY: 1. Very recently this gentleman because of his [facility] advisory he had an evaluation and there is no evidence of any lead malfunction. His device is functioning well. He did not have any ventricular arrhythmias. He has had a noninvasive program stimulation and also he had biventricular ICD was interrogated. This gentleman has a history of nonischemic cardiomyopathy with mild pulmonary stenosis. Ejection fraction is about 40% with a diagnosis of nonischemic cardiomyopathy, mild pulmonary stenosis. He had a Bi-V ICD that was recently interrogated and is functioning well. 2. The patient has also developed some melanoma and has been under the care of Dr. Stevens. He has had history of ventricular arrhythmias as well in the past. However, of late he has been doing well. He had recent episodes of atrial fibrillation requiring ICD therapy and therefore he has been placed on amiodarone as well. 3. It appears that this patient also had a hospitalization in February or so with adrenal insufficiency as well and is under the care of er rn, Dr. Bowman. EXAMINATION: Blood pressure is 117/80, pulse rate is 64 per minute. There are no orthostatic changes. HEENT: Unremarkable. Fundus was not examined by me. Neck is supple. There is JVD of 1 cm. No carotid bruit. Heart exam reveals S1, S2 with a short systolic murmur at the base. Lungs are clear. Abdomen is soft, nontender. Lower extremities reveal normal pulses, no edema. Central nervous system is normal. LABORATORY DATA: Suggests no significant abnormalities. IMPRESSION: 1. Probable vasovagal episode. 2. Hypothyroidism. 3. Adrenal insufficiency. 4. History of a melanoma, details unclear. 5. Nonischemic cardiomyopathy with pulmonary stenosis and a recent ICD interrogation by Dr. Wood. 6. Type 2 diabetes mellitus. RECOMMENDATIONS: I am recommending that the patient should stay well hydrated. We will increase activity and if he has no further symptoms, he can be discharged and I will see him in the office within a week. I believe the episode that happened today was more or less a vasovagal phenomena. Does not require any aggressive intervention at this time and his device has been checked and is functioning well. Thank you very much for the consult. DAYRON / QASIM: [id number] /
--- NOTE | 2017-06-08 10:04 | DS ---
DISCHARGE SUMMARY DATE OF SURGERY: 06/07/2017 I am covering for Dr. Frye. FINAL DIAGNOSES: 1. Presyncope, possibly orthostatic hypotension and bradycardia, possible vasovagal syndrome. 2. Chronic obstructive pulmonary disease. 3. Diabetes type 2. 4. Gastroesophageal reflux disease. 5. Hyperlipidemia. 6. History hypothyroidism. 7. History AICD. 8. History of coronary artery disease, coronary artery bypass grafting. 9. Possible adrenal insufficiency. 10.Nonischemic cardiomyopathy. DISCHARGE DISPOSITION: The patient is being discharged in stable condition with guarded prognosis. Cardiology cleared the patient for discharge. HISTORY OF PRESENT ILLNESS: This 77-year-old gentleman with a past medical history of multiple medical problems being followed by Dr. Michael Frye in the outpatient setting was admitted with symptomatology as mentioned earlier, hypotension as well as bradycardia. The patient had a [facility] but there was no evidence of lead malfunction. The patient was seen by Cardiology, cleared the patient for discharge. PHYSICAL EXAMINATION: On exam, vital signs are stable. Cardiovascular: S1, S2. Abdomen soft. Nervous system: No focal deficits. DISCHARGE ADVICE: 1. Diet is cardiac diet. 2. Activity limited until followup. 3. Follow up with Dr. Frye in 2-3 days. 4. Follow with the driver examiner as recommended. MEDICATIONS: 1. Aspirin 81 mg q.h.s. 2. Colace 200 mg b.i.d. 3. Hydrocodone 1 tablet q.i.d. p.r.n. 4. Cortef 10 mg p.o. b.i.d. 5. Synthroid 100 mcg. 6. Losartan 100 mg p.o. q.h.s. 7. Glucophage XR 500 mg q.h.s. 8. Metoprolol-XL 100 mg. 9. Multivitamins 1 p.o. daily. 10.Prilosec 20 mg q.a.m. 11.Ditropan 5 mg q.h.s. 12.Aldactone 25 mg. 13.Coumadin 5 mg with supper. Followup labs with Dr. Frye. Once again, the patient will be discharged in stable condition with guarded prognosis. MMODL / IJN: [id number] / MTDD
== END 2017-06-07 14:25 | disposition home or self-care (01) | DRG 312 ==
LOC: EC 09:05 → 6SEL 14:10
PROVIDERS: ADMIT Family Medicine; ATTEND Family Medicine
PROC: 4B02XTZ Measurement of Cardiac Defibrillator, External Approach (ICD-10-PCS; principal; 2017-06-06)
DX: I95.1 Orthostatic hypotension (principal); E27.40 Unspecified adrenocortical insufficiency; I42.9 Cardiomyopathy, unspecified; E86.0 Dehydration; J43.9 Emphysema, unspecified; E11.9 Type 2 diabetes mellitus without complications; I48.91 Unspecified atrial fibrillation; E03.9 Hypothyroidism, unspecified; E78.5 Hyperlipidemia, unspecified; R00.1 Bradycardia, unspecified; I10 Essential (primary) hypertension; I25.10 Atherosclerotic heart disease of native coronary artery without angina pectoris; K21.9 Gastro-esophageal reflux disease without esophagitis; R55 Syncope and collapse; Z79.82 Long term (current) use of aspirin; Z79.84 Long term (current) use of oral hypoglycemic drugs; Z79.899 Other long term (current) drug therapy; Z79.01 Long term (current) use of anticoagulants; Z88.0 Allergy status to penicillin; Z85.820 Personal history of malignant melanoma of skin; Z85.830 Personal history of malignant neoplasm of bone; Z95.1 Presence of aortocoronary bypass graft; Z87.891 Personal history of nicotine dependence; Z95.810 Presence of automatic (implantable) cardiac defibrillator; Z82.49 Family history of ischemic heart disease and other diseases of the circulatory system
CPT/HCPCS: 36415; 70450; 71046; 72125; 80048; 80053; 81003; 82550; 82553; 83735; 84439; 84443; 84484; 85025; 85610; 85730; 93005; 96361; 96374; 99285

== ENCOUNTER 2017-06-11 10:33 | Emergency (ER) | payer MEDICARE ==
[2017-06-11] MEDS ORDERED: SODIUM CHLORIDE 0.9% 1,000 ML IV STA (10:59)
--- NOTE | 2017-06-11 11:02 | ED ---
General Adult HPI - General Chief complaint: Fall Stated complaint: Near syncope/fall Time Seen by Provider: 06/11/17 10:47 Source: patient, EMS, RN notes reviewed Mode of arrival: EMS Limitations: no limitations - History of Present Illness Initial comments: Patient is a pleasant 77-year-old male presenting to the emergency department following near syncopal episode. Patient had a similar episode a week ago and was in the hospital overnight. Patient also had a similar episode back in February. Patient is symptom-free at this time. Patient was having a bowel movement and he came close to passing out. Patient never fully lost consciousness. Patient states he gently struck his head on the side of the tub however denies any significant injury. No loss of consciousness. - Related Data Home Medications Medication Instructions Recorded Confirmed Aspirin 81 mg PO HS 10/09/14 06/11/17 Omeprazole [PriLOSEC] 20 mg PO QAM 10/09/14 06/11/17 Oxybutynin Chloride [Ditropan] 5 mg PO HS 10/09/14 06/11/17 Warfarin Sodium 5 mg PO W/SUPPER 10/09/14 06/11/17 Docusate [Colace] 200 mg PO BID 12/03/15 06/11/17 Losartan Potassium 100 mg PO HS 12/03/15 06/11/17 Hydrocodone/Acetaminophen [Toxey 1 tab PO QID PRN 03/04/17 06/11/17 5-325] Multivitamins, Thera [Multivitamin 1 tab PO DAILY@1200 06/06/17 06/11/17 (formulary)] metFORMIN HCL ER [Glucophage Xr] 500 mg PO HS 06/06/17 06/11/17 Metoprolol Succinate (ER) [Toprol 100 mg PO DAILY 06/07/17 06/11/17 XL] Amiodarone HCl [Pacerone] 200 mg PO BID 06/11/17 06/11/17 Levothyroxine Sodium [Synthroid] 100 mcg PO DAILY 06/11/17 06/11/17 Allergies Allergy/AdvReac Type Severity Reaction Status Date / Time Penicillins Allergy Unknown Verified 06/11/17 10:36 Childhood Review of Systems ROS Statement: Those systems with pertinent positive or pertinent negative responses have been documented in the HPI. ROS Other: All systems not noted in ROS Statement are negative. 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 REC 6 TX RADIATION-APR 2013 History of Any Multi-Drug Resistant Organisms: None Reported Past Surgical History: AICD, Coronary Bypass/CABG Additional Past Surgical History / Comment(s): CABG-"CLEANED PUMONARY ARTERY", MELANOMA AND 10 LYMPHNODES REMOVED RT LEG,ORCHIECTOMY,REPAIR FINGER AMPUTATON Past Anesthesia/Blood Transfusion Reactions: No Reported Reaction Type of Cardiac Device: AICD Device Placement Date:: 2012 [facility] LT CHEST Past Psychological History: No Psychological Hx Reported Smoking Status: Former smoker Past Alcohol Use History: None Reported Past Drug Use History: None Reported - Past Family History Mother Family Medical History: Cancer Additional Family Medical History / Comment(s): cervical cancer Father Family Medical History: Myocardial Infarction (VT) Son(s) Family Medical History: Myocardial Infarction (VT) Additional Family Medical History / Comment(s): SONS X 2 General Exam Limitations: no limitations General appearance: alert, in no apparent distress Head exam: Present: atraumatic, normocephalic Eye exam: Present: normal appearance, PERRL, EOMI ENT exam: Present: normal oropharynx Neck exam: Present: normal inspection. Absent: tenderness Respiratory exam: Present: normal lung sounds bilaterally Cardiovascular Exam: Present: regular rate, normal rhythm GI/Abdominal exam: Present: soft. Absent: tenderness Extremities exam: Present: normal inspection Neurological exam: Present: alert, CN II-XII intact. Absent: motor sensory deficit Expanded Speech: Present: fluid speech Motor strength exam: RUE: 5, LUE: 5, RLE: 5, LLE: 5 Psychiatric exam: Present: normal affect, normal mood Skin exam: Present: normal color Course Vital Signs 06/11/17 06/11/1706/11/18 10:35 11:35 12:18 Temperature 97.2 F L Pulse Rate 64 67 63 Respiratory 18 18 17 Rate Blood Pressure 193/105 94/61 O2 Sat by Pulse 100 100 98 Oximetry 06/11/17 12:51 Temperature Pulse Rate 68 Respiratory 18 Rate Blood Pressure 89/53 O2 Sat by Pulse 98 Oximetry EKG Findings - EKG Comments: EKG Findings:: Paced rhythm at 79. QRS 154. QT 448. QTC 5:15. [place] and indeterminate. Wide-complex QRS. No acute ST change. Medical Decision Making - Medical Decision Making Patient reevaluated and remained symptom-free. Case discussed in detail with Dr. Frye who is familiar with this patient and is comfortable with discharge. Patient and family are updated. - Lab Data Result diagrams: 06/11/17 11:30 06/11/17 11:30 Lab Results 06/11/17 06/11/17 06/11/17 Range/Units 11:30 11:30 11:30 WBC 7.7 (3.8-10.6) k/uL RBC 3.45 L (4.30-5.90) m/uL Hgb 10.8 L (13.0-17.5) gm/dL Hct 31.8 L (39.0-53.0) % MCV 92.1 (80.0-100.0) fL MCH 31.4 (25.0-35.0) pg MCHC 34.1 (31.0-37.0) g/dL RDW 15.9 H (11.5-15.5) % Plt Count 257 (150-450) k/uL Neutrophils % 75 % Lymphocytes % 12 % Monocytes % 7 % Eosinophils % 5 % Basophils % 1 % Neutrophils # 5.8 (1.3-7.7) k/uL Lymphocytes # 0.9 L (1.0-4.8) k/uL Monocytes # 0.5 (0-1.0) k/uL Eosinophils # 0.4 (0-0.7) k/uL Basophils # 0.0 (0-0.2) k/uL Poikilocytosis Slight PT (9.0-12.0) sec INR (<1.2) APTT (22.0-30.0) sec Sodium 133 L (137-145) mmol/L Potassium 4.6 (3.5-5.1) mmol/L Chloride 97 L (98-107) mmol/L Carbon Dioxide 25 (22-30) mmol/L Anion Gap 11 mmol/L BUN 26 H (9-20) mg/dL Creatinine 1.10 (0.66-1.25) mg/dL Est GFR (MDRD) Af Amer >60 (>60 ml/min/1.73 sqM) Est GFR (MDRD) Non-Af >60 (>60 ml/min/1.73 sqM) Glucose 129 H (74-99) mg/dL Calcium 9.6 (8.4-10.2) mg/dL Total Bilirubin 0.6 (0.2-1.3) mg/dL AST 48 (17-59) U/L ALT 73 H (21-72) U/L Alkaline Phosphatase 86 (38-126) U/L Total Creatine Kinase 23 L (55-170) U/L CK-MB (CK-2) 0.4 (0.0-2.4) ng/mL CK-MB (CK-2) Rel Index 1.7 Troponin I <0.012 (0.000-0.034) ng/mL Total Protein 7.0 (6.3-8.2) g/dL Albumin 3.8 (3.5-5.0) g/dL 06/11/17 Range/Units 11:30 WBC (3.8-10.6) k/uL RBC (4.30-5.90) m/uL Hgb (13.0-17.5) gm/dL Hct (39.0-53.0) % MCV (80.0-100.0) fL MCH (25.0-35.0) pg MCHC (31.0-37.0) g/dL RDW (11.5-15.5) % Plt Count (150-450) k/uL Neutrophils % % Lymphocytes % % Monocytes % % Eosinophils % % Basophils % % Neutrophils # (1.3-7.7) k/uL Lymphocytes # (1.0-4.8) k/uL Monocytes # (0-1.0) k/uL Eosinophils # (0-0.7) k/uL Basophils # (0-0.2) k/uL Poikilocytosis PT 28.1 H (9.0-12.0) sec INR 3.1 H (<1.2) APTT 37.1 H (22.0-30.0) sec Sodium (137-145) mmol/L Potassium (3.5-5.1) mmol/L Chloride (98-107) mmol/L Carbon Dioxide (22-30) mmol/L Anion Gap mmol/L BUN (9-20) mg/dL Creatinine (0.66-1.25) mg/dL Est GFR (MDRD) Af Amer (>60 ml/min/1.73 sqM) Est GFR (MDRD) Non-Af (>60 ml/min/1.73 sqM) Glucose (74-99) mg/dL Calcium (8.4-10.2) mg/dL Total Bilirubin (0.2-1.3) mg/dL AST (17-59) U/L ALT (21-72) U/L Alkaline Phosphatase (38-126) U/L Total Creatine Kinase (55-170) U/L CK-MB (CK-2) (0.0-2.4) ng/mL CK-MB (CK-2) Rel Index Troponin I (0.000-0.034) ng/mL Total Protein (6.3-8.2) g/dL Albumin (3.5-5.0) g/dL - Radiology Data Radiology results: report reviewed (Computed tomography scan of the brain shows atrophy and chronic small vessel ischemic change without acute intercranial process.), image reviewed (Chest x-ray shows chronic changes without acute process) Disposition Clinical Impression: Near syncope Disposition: HOME SELF-CARE Condition: Stable Instructions: Near Syncope (ED) Additional Instructions: Please follow-up Dr. Frye in the next day or 2 for recheck. Return for passing out, confusion, weakness, worsening or changing symptoms or other concerns. Referrals: Michael Frye DO [Primary Care Provider] - 1-2 days Time of Disposition: 13:14
[2017-06-11 11:54] LABS: Basophils % (A) 1 %; Eosinophils # (A) 0.4 k/uL (0-0.7); Eosinophils % (A) 5 %; HCT 31.8 % (39.0-53.0); HGB 10.8 gm/dL (13.0-17.5); Lymphocytes # (A) 0.9 k/uL (1.0-4.8); Lymphocytes % (A) 12 %; MCH 31.4 pg (25.0-35.0); MCHC 34.1 g/dL (31.0-37.0); MCV 92.1 fL (80.0-100.0); Monocytes # (A) 0.5 k/uL (0-1.0); Monocytes % (A) 7 %; Neutrophils # (A) 5.8 k/uL (1.3-7.7); Neutrophils % (A) 75 %; Platelet Count 257 k/uL (150-450); Poikilocytosis Slight; RBC 3.45 m/uL (4.30-5.90); RDW 15.9 % (11.5-15.5); WBC 7.7 k/uL (3.8-10.6)
[2017-06-11 12:00] LABS: INR 3.1 (<1.2); Partial Thromboplastin Time 37.1 sec (22.0-30.0); Prothrombin Time 28.1 sec (9.0-12.0)
--- NOTE | 2017-06-11 12:01 | CT ---
EXAMINATION TYPE: CT brain wo con DATE OF EXAM: 06/11/2017 COMPARISON: 06/06/2017 HISTORY: Near syncopal episode, high blood pressure CT DLP: 1044.[address] of the brain was performed. The ventricles, basal cisterns and sulci overlying the cerebral convexities demonstrate moderate enla rgement. There is no evidence for intracranial hemorrhage or sulcal effacement. There is decreased attenuation about the periventricular white matter and deep white matter of both c erebral hemispheres, compatible with chronic small vessel ischemia. Differential diagnosis does inclu de demyelination. No mass effects are seen.No midline shift. Osseous calvarium is intact. If symptoms persist consider MRI. IMPRESSION: 1. Age related atrophic and chronic small vessel ischemic change without acute intracranial process s een at this time.
[2017-06-11 12:05] LABS: ALT 73 U/L (21-72); AST 48 U/L (17-59); Albumin 3.8 g/dL (3.5-5.0); Alkaline Phosphatase 86 U/L (38-126); Anion Gap 11 mmol/L; Blood Urea Nitrogen 26 mg/dL (9-20); Calcium 9.6 mg/dL (8.4-10.2); Carbon Dioxide 25 mmol/L (22-30); Chloride 97 mmol/L (98-107); Glucose 129 mg/dL (74-99); Potassium 4.6 mmol/L (3.5-5.1); Sodium 133 mmol/L (137-145); Total Bilirubin 0.6 mg/dL (0.2-1.3)
--- NOTE | 2017-06-11 12:09 | XR ---
EXAMINATION TYPE: XR chest 2V DATE OF EXAM: 06/11/2017 COMPARISON: Chest x-ray June 06, 2017. HISTORY: Syncope and weakness. TECHNIQUE: Frontal and lateral views of the chest are obtained. FINDINGS: Sternal wires are present. There is chronic parenchymal change without suspicious new foca l air space opacity, pleural effusion, or pneumothorax seen. The cardiac silhouette size remains enl arged with multilead pacemaker/AICD. The osseous structures are demineralized. IMPRESSION: Chronic parenchymal change and cardiomegaly without acute pulmonary process. No signific ant change from prior chest x-ray.
[2017-06-11] MEDS ORDERED: SODIUM CHLORIDE 0.9% 500 ML IV STA (12:13)
[2017-06-11 12:26] LABS: Creatine Kinase 23 U/L (55-170)
[2017-06-11 12:38] LABS: Creatine Kinase MB 0.4 ng/mL (0.0-2.4); Troponin I <0.012 ng/mL (0.000-0.034)
[2017-06-11] MEDS ORDERED: SODIUM CHLORIDE 0.9% 1,000 ML IV ONE (13:41)
[2017-06-11 14:34] VITALS: RESP 18
[2017-06-11 16:13] VITALS: BP 96/55; PULSE 60; TEMP 98.3
== END 2017-06-11 16:13 | disposition home or self-care (01) ==
LOC: EC 10:33
DX: R55 Syncope and collapse (principal); J44.9 Chronic obstructive pulmonary disease, unspecified; E11.9 Type 2 diabetes mellitus without complications; K21.9 Gastro-esophageal reflux disease without esophagitis; E78.5 Hyperlipidemia, unspecified; E07.9 Disorder of thyroid, unspecified; Z85.820 Personal history of malignant melanoma of skin; Z87.891 Personal history of nicotine dependence; Z79.82 Long term (current) use of aspirin; Z79.01 Long term (current) use of anticoagulants; Z79.899 Other long term (current) drug therapy; Z79.84 Long term (current) use of oral hypoglycemic drugs; Z88.0 Allergy status to penicillin
CPT/HCPCS: 36415; 70450; 71046; 80053; 82550; 82553; 84484; 85025; 85610; 85730; 93005; 96360; 96361; 99285

== ENCOUNTER → 2017-06-22 | Outpatient (CLI) | payer MEDICARE ==
--- NOTE | 2017-06-22 11:39 | CT ---
EXAMINATION TYPE: CT ChestAbdPelvis w con DATE OF EXAM: 06/22/2017 COMPARISON: 02/23/2017, 01/27/2017, 11/04/2016 HISTORY: 77-year-old male follow-up up scan. Melanoma. TECHNIQUE: Contiguous axial scanning of the chest, abdomen, and pelvis performed with IV Contrast, pa tient injected with 100 mL of Omnipaque 300. Delayed images through the kidneys were obtained. Linda l/sagittal reconstructions performed. CT DLP: 2260 mGycm Automated exposure control for dose reduction was used. FINDINGS: Chest: Median sternotomy wires are present. Retained epicardial pacer leads. Heart upper limits of normal in size without pericardial effusion. Ectatic ascending aorta at 2.9 cm. Bovine configuration to the aortic arch. Scattered small mediastinal lymph nodes are present. No thoracic lymphadenopathy by CT size criteria. Moderate to severe bilateral gynecomastia, right greater than left. There is a small 3.7 cm lipoma of the left latissimus dorsi lateral left mid chest. Heterogeneous enhancing lobulated mass along the right lateral chest wall involving the serratus ante rior musculature measures 5.2 x 2.7 cm versus 5.0 x 2.9 cm on 01/27/2018, not significantly changed. There may be a small 1.6 cm nodular component which is increased, axial image 29. Strandy atelectasis and scarring in the lungs with biapical pleural-parenchymal scarring. Nonspecific air cyst right lower lobe. No consolidation or pleural effusion. ABDOMEN: Moderate sized hiatal hernia. 2 cm hypodense lesion in the peripheral right liver lobe remains unchanged. Cholecystectomy clips are present. No biliary ductal dilatation. Portal venous system is patent. Right adrenal mass measures 2.8 x 1.8 cm versus 3.0 x 2.1 cm on 01/27/2017 and 2.5 x 1.9 cm on 017. Left adrenal mass measures 6.1 x 4.4 cm with similar left para-aortic extension. Previously, this chelita sured 6.2 x 4.3 cm on 02/23/2017 and 6.4 x 4.2 cm. GDA lymph node in the upper abdomen measures 1.5 cm versus 1.3 cm on 02/23/2017. The patient's left mid mesenteric mass measures 2.9 cm versus 2.9 cm and 3.4 cm on 02/23/2017 and , respectively. Couple subcentimeter hypodensities in both kidneys too small for accurate CT characterization, probab le tiny cysts. Symmetric uptake and excretion of contrast from both kidneys. Spleen and pancreas within normal limits. Mild atherosclerotic calcifications within the abdominal aorta. No dilated small bowel, free fluid, or free air. Normal appendix. Moderate to large stool burden. No pericolonic inflammatory change. Pelvis: Marked urinary bladder distention redemonstrated. Distention reaches up to above the level of the umb ilicus measuring 19.4 cm craniocaudal. There is a fundal bladder diverticulum. Hypertrophy of the med gilberto lobe of the prostate gland extending into the posterior bladder base measuring 2.9 cm, unchanged. No abnormal fluid collection in the pelvis or pelvic lymphadenopathy. Bones: Degenerative changes lower lumbar spine. Posterior and left L4 lesion and right L3 pedicular lesion remain unchanged with similar lucency and surrounding sclerosis. No new osseous destructive process identified. IMPRESSION: 1. OVERALL STABLE EXAM WITH BILATERAL ADRENAL MASSES MEASURING UP TO 6.1 CM, A 2 CM RIGHT HEPATIC LOB E LESION, A 2.9 CM LEFT MID MESENTERIC MASS, A 1.5 CM GDA LYMPH NODE, AND A COUPLE LUCENT LESIONS IN THE LUMBAR SPINE (L3 AND L4). 2. HETEROGENEOUSLY ENHANCING SOFT TISSUE LESION ALONG THE RIGHT LATERAL CHEST WALL INVOLVING THE SERR ATUS ANTERIOR MUSCULATURE MEASURES 5.2 CM AND IS ALSO RELATIVELY STABLE IN SIZE. HOWEVER, A SMALL 1.6 CM NODULAR PROTRUSION FROM THIS MASS APPEARS SLIGHTLY LARGER, ON AXIAL IMAGE 29. 3. SEVERE BLADDER DISTENTION EXTENDING ABOVE THE LEVEL OF THE UMBILICUS. POSSIBLE BLADDER OUTLET OBST RUCTION SECONDARY TO BPH GIVEN THE HYPERTROPHIED MEDIAN LOBE OF THE PROSTATE GLAND. 4. MODERATE-SIZED HIATAL HERNIA.
== END | disposition home or self-care (01) ==
LOC: RADCTMAIN 07:47
PROVIDERS: ATTEND Internal Medicine Hematology & Oncology
DX: K44.9 Diaphragmatic hernia without obstruction or gangrene (principal); E27.9 Disorder of adrenal gland, unspecified; K76.89 Other specified diseases of liver; N32.89 Other specified disorders of bladder; R91.8 Other nonspecific abnormal finding of lung field; C43.70 Malignant melanoma of unspecified lower limb, including hip; Z88.0 Allergy status to penicillin
CPT/HCPCS: 82565; 84520; 71260; 74177; 36415; Q9967

== ENCOUNTER → 2017-07-22 | Outpatient (CLI) | payer MEDICARE | END | disposition home or self-care (01) | LOC: LAB 10:22 | PROVIDERS: ATTEND Internal Medicine Endocrinology, Diabetes & Metabolism | DX: E27.40 Unspecified adrenocortical insufficiency (principal); E03.8 Other specified hypothyroidism | CPT/HCPCS: 82533; 84443 ==

== ENCOUNTER → 2017-08-28 | Outpatient (CLI) | payer MEDICARE | LOC: LABWHC1 10:42 | PROVIDERS: ATTEND Internal Medicine Endocrinology, Diabetes & Metabolism | DX: E03.8 Other specified hypothyroidism (principal); E27.40 Unspecified adrenocortical insufficiency | CPT/HCPCS: 36415; 82533; 84443 ==

== ENCOUNTER → 2017-08-29 | Outpatient (CLI) | payer MEDICARE ==
[2017-08-29 09:51] LABS: Prostate Specific Antigen 0.45 ng/mL (0.00-4.00)
[2017-08-29 18:15] LABS: Hemoglobin A1C 5.8 % (4.0-6.0)
== END ==
LOC: LABWHC1 08:39
PROVIDERS: ATTEND Family Medicine
DX: N40.0 Benign prostatic hyperplasia without lower urinary tract symptoms (principal); E11.9 Type 2 diabetes mellitus without complications
CPT/HCPCS: 36415; 80061; 83036; 84153

== ENCOUNTER → 2017-10-06 | Outpatient (CLI) | payer MEDICARE ==
[2017-10-06 11:10] LABS: Blood Urea Nitrogen 13 mg/dL (9-20)
--- NOTE | 2017-10-06 13:17 | CT ---
EXAMINATION TYPE: CT ChestAbdPelvis w con DATE OF EXAM: 10/06/2017 COMPARISON: CT chest abdomen and pelvis June 22, 2017 and older studies. 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 History of kidne y cancer per patient. CT DLP: 1274.4 mGycm. Automated Exposure Control for Dose Reduction was Utilized. CONTRAST: CT scan of the thorax, abdomen and pelvis is performed with oral and with IV Contrast, patient inject ed with 100 mL of Isovue 300. FINDINGS: LUNGS: There is mild to moderate biapical pleural/parenchymal scarring. No suspicious parenchymal nod ule or mass is present. No suspicious focal consolidation or groundglass opacity is seen. There is n o pleural effusion or pneumothorax seen. The tracheobronchial tree is patent. MEDIASTINUM: There are no greater than 1 cm hilar or mediastinal lymph nodes. No pericardial effusi on is seen. Mild cardiomegaly is seen. There is redemonstration of pacemaker/defibrillator. Post CAB G changes with mediastinal clips and sternal wires is redemonstrated. Thyroid gland is surgically or congenitally atrophic. Left-sided pacemaker is redemonstrated. OTHER: Slightly enlarging right heterogeneous lateral chest wall mass measuring 5.8 x 3.3 cm axial im age 29. LIVER/GB: Stable 2.0 cm low dense lesion posterior right hepatic lobe axial image 56. Cholecystectomy clips are redemonstrated. PANCREAS: No significant abnormality is seen. SPLEEN: No significant abnormality is seen. ADRENALS: There is enlarging lobulated heterogeneous left adrenal mass measuring 4.7 x 3.9 cm axial i mage 60 now abutting posterior margin of pancreatic tail. There is enlarging right adrenal mass measuring 3.0 x 2.5 cm axial image 57 on current study KIDNEYS: There is dilated bladder with anterior diverticulum axial image 89 redemonstrated unchanged from prior. No wall thickening is seen. Few tiny subcentimeter lesions throughout both kidneys are st able and presumed benign. BOWEL: Small hiatal hernia is present. Diverticula in the left and sigmoid colon are present. There i s no CT evidence for acute diverticulitis. Normal contrast-filled appendix is seen from cecum. There is no suspicious small or large bowel dilatation. GENITAL ORGANS: Prostate gland is enlarged in size bulging into bladder base consistent with underlyi ng BPH similar to the prior. LYMPH NODES: Adjacent to left adrenal gland there is a lobulated left para-aortic mass measuring 5.2 x 3.0 cm axial image 60 at level of celiac axis with suspected new encasement on coronal image 50. Pa tency is still present. There is persistent heterogeneous left mid abdominal mesenteric lobulated mass measuring 2.6 x 1.6 cm axial image 79 stable from prior. OSSEOUS STRUCTURES: Osseous structures are demineralized. Nonspecific lytic lesions L4 vertebra poste riorly coronal image 65, right L3 vertebra coronal image 65, L2 vertebra coronal image 62 and T5 vert ebra sagittal image 59 are redemonstrated and could reflect osseous metastatic involvement. No new le sions are seen. OTHER: No significant additional abnormality is seen. IMPRESSION: 1. Enlarging bilateral adrenal masses, right lateral chest wall mass, and left GDA lymph node consist ent with metastatic progression. Stable osseous metastatic lesions and left mid abdominal mesenteric lesions. No definitive new lesions are seen.
== END | disposition home or self-care (01) ==
LOC: RADCTMAIN 10:28
PROVIDERS: ATTEND Internal Medicine Hematology & Oncology
DX: C79.51 Secondary malignant neoplasm of bone (principal); E27.8 Other specified disorders of adrenal gland; R59.0 Localized enlarged lymph nodes; R19.09 Other intra-abdominal and pelvic swelling, mass and lump; C43.70 Malignant melanoma of unspecified lower limb, including hip; Z88.0 Allergy status to penicillin
CPT/HCPCS: 82565; 84520; 71260; 74177; 36415; Q9967

== ENCOUNTER → 2017-10-20 | Outpatient (CLI) | payer MEDICARE ==
--- NOTE | 2017-10-20 15:43 | XR ---
EXAMINATION TYPE: XR KUB DATE OF EXAM: 10/20/2017 3:28 PM CLINICAL HISTORY: Right-sided pain for one week with vomiting TECHNIQUE: Two Upright KUB images of the abdomen are obtained. COMPARISON: CT chest abdomen and pelvis October 06, 2017 FINDINGS: Scattered gas is seen in non-distended small bowel loops. A few slightly more prominent gas -filled small bowel loops right mid abdomen and left lower quadrant are seen with air-fluid levels. G as and fecal material is seen in non-distended colon. Large pelvic phleboliths on the left are redemo nstrated. There is distended bladder extending above the iliac crests redemonstrated. Sternal wires i nferior one which is broken is again seen. Epicardial pacer wires are seen. There is partial visualiz ation of dual lead pacemaker and cardiomegaly. No pneumoperitoneum is present. IMPRESSION: Overall nonspecific but favor nonobstructive bowel gas pattern. Distended bladder redemonstrated.
== END | disposition home or self-care (01) ==
LOC: RADXRMAIN 15:08
PROVIDERS: ATTEND Nurse Practitioner Adult Health
DX: C43.70 Malignant melanoma of unspecified lower limb, including hip (principal); N32.89 Other specified disorders of bladder; E03.9 Hypothyroidism, unspecified
CPT/HCPCS: 74018

== ENCOUNTER → 2017-11-05 | Outpatient (CLI) | payer MEDICARE | END | disposition home or self-care (01) | LOC: LABWHC1 10:00 | PROVIDERS: ATTEND Internal Medicine Endocrinology, Diabetes & Metabolism | DX: E03.9 Hypothyroidism, unspecified (principal) | CPT/HCPCS: 36415; 84443 ==

== ENCOUNTER 2017-12-03 01:25 | Emergency (ER) | payer MEDICARE ==
[2017-12-03 01:37] VITALS: PULSE 68
[2017-12-03] MEDS ORDERED: SODIUM CHLORIDE 0.9% 1,000 ML IV STA (01:44)
[2017-12-03 01:57] LABS: Basophils % (A) 1 %; Eosinophils # (A) 0.4 k/uL (0-0.7); Eosinophils % (A) 6 %; HCT 29.6 % (39.0-53.0); HGB 9.9 gm/dL (13.0-17.5); Lymphocytes # (A) 1.2 k/uL (1.0-4.8); Lymphocytes % (A) 18 %; MCH 30.5 pg (25.0-35.0); MCHC 33.4 g/dL (31.0-37.0); MCV 91.4 fL (80.0-100.0); Mean Platelet Volume 6.6; Monocytes # (A) 0.6 k/uL (0-1.0); Monocytes % (A) 9 %; Neutrophils # (A) 4.4 k/uL (1.3-7.7); Neutrophils % (A) 66 %; Platelet Count 236 k/uL (150-450); RBC 3.23 m/uL (4.30-5.90); RDW 15.1 % (11.5-15.5); WBC 6.7 k/uL (3.8-10.6)
[2017-12-03 02:06] LABS: INR 3.8 (<1.2); Partial Thromboplastin Time 45.1 sec (22.0-30.0); Prothrombin Time 34.4 sec (9.0-12.0)
--- NOTE | 2017-12-03 02:07 | ED ---
General Adult HPI - General Chief complaint: Nausea/Vomiting/Diarrhea Stated complaint: Nausea, vomiting Time Seen by Provider: 12/03/17 01:36 Source: patient, EMS Mode of arrival: EMS Limitations: no limitations - History of Present Illness Initial comments: 77-year-old gentleman presenting to the ED via EMS for evaluation of nausea, vomiting, generalized fatigue and a fall out of bed today. Patient reports he is currently undergoing chemotherapy for metastatic melanoma, last treatment was earlier this month. Patient reports that over the past 2 days he's experienced nausea and vomiting, he states he's been unable tolerate any by mouth intake for 2 days. He reports that over those 2 days he is become progressively weaker and more fatigued. He reports that this evening he was attempting to get bed, he rolled to his side and rolled out of his bed falling to the ground approximately 2-3 feet. He denies striking his head or loss of consciousness. He does state that he is currently on Coumadin. at bedside reports that the patient woke up on Thursday morning complaining of a headache, he had no falls or traumas the night before. She reports that throughout the day he seemed to be sleeping most the day and wasn' t feeling well. He had some nausea and vomiting. She went to bed and she subsequently heard him fall out of bed. She doesn't believe he lost consciousness. She decided to bring him to the ER for further evaluation. - Related Data Home Medications Medication Instructions Recorded Confirmed Aspirin 81 mg PO HS 10/09/14 06/11/17 Omeprazole [PriLOSEC] 20 mg PO QAM 10/09/14 06/11/17 Oxybutynin Chloride [Ditropan] 5 mg PO HS 10/09/14 06/11/17 Warfarin Sodium 5 mg PO W/SUPPER 10/09/14 06/11/17 Docusate [Colace] 200 mg PO BID 12/03/15 06/11/17 Losartan Potassium 100 mg PO HS 12/03/15 06/11/17 Hydrocodone/Acetaminophen [Baldwin 1 tab PO QID PRN 03/04/17 06/11/17 5-325] Multivitamins, Thera [Multivitamin 1 tab PO DAILY@1200 06/06/17 06/11/17 (formulary)] metFORMIN HCL ER [Glucophage Xr] 500 mg PO HS 06/06/17 06/11/17 Metoprolol Succinate (ER) [Toprol 100 mg PO DAILY 06/07/17 06/11/17 XL] Amiodarone HCl [Pacerone] 200 mg PO BID 06/11/17 06/11/17 Levothyroxine Sodium [Synthroid] 100 mcg PO DAILY 06/11/17 06/11/17 Allergies Allergy/AdvReac Type Severity Reaction Status Date / Time Penicillins Allergy Unknown Verified 06/11/17 10:36 Childhood Review of Systems ROS Statement: Those systems with pertinent positive or pertinent negative responses have been documented in the HPI. ROS Other: All systems not noted in ROS Statement are negative. Past Medical History Past Medical History: Cancer, COPD, Diabetes Mellitus, GERD/Reflux, Hyperlipidemia, Prostate Disorder, Thyroid Disorder Additional Past Medical History / Comment(s): SEE DR ZIMMER'S H&P,INCREASED FATIGUE,EMPHYSEMA,BRONCHITIS, MALIGNANT MELANOMA METS TO SPINE REC 6 TX RADIATION-APR 2013 History of Any Multi-Drug Resistant Organisms: None Reported Past Surgical History: AICD, Coronary Bypass/CABG Additional Past Surgical History / Comment(s): CABG-"CLEANED PUMONARY ARTERY", MELANOMA AND 10 LYMPHNODES REMOVED RT LEG,ORCHIECTOMY,REPAIR FINGER AMPUTATON Past Anesthesia/Blood Transfusion Reactions: No Reported Reaction Type of Cardiac Device: AICD Device Placement Date:: 2012 [facility] LT CHEST Past Psychological History: No Psychological Hx Reported Smoking Status: Former smoker Past Alcohol Use History: None Reported Past Drug Use History: None Reported - Past Family History Mother Family Medical History: Cancer Additional Family Medical History / Comment(s): cervical cancer Father Family Medical History: Myocardial Infarction ([place]) Son(s) Family Medical History: Myocardial Infarction ([place]) Additional Family Medical History / Comment(s): SONS X 2 General Exam Limitations: no limitations General appearance: alert, other (Chronically ill-appearing, pale, resting but wakes and answers questions appropriately.) Head exam: Present: normocephalic, other (Abrasion the left forehead) Eye exam: Present: PERRL, EOMI, other (Conjunctival pallor). Absent: conjunctival injection ENT exam: Present: mucous membranes dry Neck exam: Absent: tenderness Respiratory exam: Absent: respiratory distress Cardiovascular Exam: Present: regular rate, normal rhythm, other (Well-healed midsternal scar as well as scar over left chest with pacemaker palpable) GI/Abdominal exam: Present: soft. Absent: distended Rectal exam: Present: deferred Extremities exam: Present: normal capillary refill, pedal edema Neurological exam: Present: alert, oriented X3 Expanded Patient oriented to: Present: person, place, time Speech: Present: fluid speech Cranial nerves: EOM's Intact: Normal, Gag Reflex: Normal, Tongue Deviation: Normal, Nystagmus: Normal, Facial Sensation: Normal Eye Response: (3) open to voice Motor Response: (6) obeys commands Verbal Response: (5) oriented Psychiatric exam: Present: flat affect Skin exam: Present: pallor Course Vital Signs 12/03/17 01:32 Temperature 97.3 F L Pulse Rate 68 Respiratory 15 Rate Blood Pressure 134/60 O2 Sat by Pulse 95 Oximetry EKG Findings - EKG Comments: EKG Findings:: EKG obtained at 1:35 AM reveals a ventricularly paced rhythm with occasional sinus beats with short TX. When compared to previous EKG the ventricularly paced and unchanged morphology. There are a few sinus beats noted on this EKG. No acute ST elevations or depressions. Medical Decision Making - Medical Decision Making The patient was seen and evaluated, history was obtained from the patient, chronically ill patient currently undergoing chemotherapy for metastatic melanoma present in with 2 days of vomiting and a fall out of bed. Patient denied striking his head but was noted to have an abrasion to the left forehead Level II trauma was activated Trauma surgeon was notified of the patient EKG was reviewed CT head revealed a subdural with a possible intraparenchymal bleed which could be acute versus related to hemorrhagic metastases [facility] was paged for transfer, patient care was discussed with ER resident who will discussed with the trauma team and return call Labs resulted with a hemoglobin of 9.9, this is only mildly on trending from the patient's previous INR is noted to be 3.8, this was discussed with pharmacy who recommended vitamin K and fresh frozen plasma they will investigate if [facility] is available ER resident Dr. Virgen return call he has spoken with the trauma team who accepts the transfer All results were discussed with the patient and his . expresses that the patient has previously declared himself DO NOT RESUSCITATE and would not want to be resuscitated or intubated, however they do understand that this may need to be reversed for surgery and that we'll need to be discussed with the trauma and neurosurgical teams at the outside hospital. Considering the patient has an active or cranial hemorrhage I did offer intubation prior to transfer. I explained to the patient and his that with active intracranial bleeding there is a risk of worsening condition including mental status and decreased respiratory rate. However the patient would like to decline intubation at this time. He does understand that there is a potential for clinical deterioration however he would prefer to discuss his options with the trauma and surgical team. EMTALA was completed Patient remained hemodynamically stable EMS arrived for transport. Report was given to EMS Patient was unable to receive fresh frozen plasma prior to transport, I contacted [facility] and updated Dr. Virgen on this. - Lab Data Result diagrams: 12/03/17 01:40 12/03/17 01:40 Lab Results 12/03/17 12/03/17 12/03/17 Range/Units 01:40 01:40 01:40 WBC 6.7 (3.8-10.6) k/uL RBC 3.23 L (4.30-5.90) m/uL Hgb 9.9 L (13.0-17.5) gm/dL Hct 29.6 L (39.0-53.0) % MCV 91.4 (80.0-100.0) fL MCH 30.5 (25.0-35.0) pg MCHC 33.4 (31.0-37.0) g/dL RDW 15.1 (11.5-15.5) % Plt Count 236 (150-450) k/uL Neutrophils % 66 % Lymphocytes % 18 % Monocytes % 9 % Eosinophils % 6 % Basophils % 1 % Neutrophils # 4.4 (1.3-7.7) k/uL Lymphocytes # 1.2 (1.0-4.8) k/uL Monocytes # 0.6 (0-1.0) k/uL Eosinophils # 0.4 (0-0.7) k/uL Basophils # 0.0 (0-0.2) k/uL PT (9.0-12.0) sec INR (<1.2) APTT (22.0-30.0) sec Sodium 127 L (137-145) mmol/L Potassium 4.0 (3.5-5.1) mmol/L Chloride 96 L (98-107) mmol/L Carbon Dioxide 22 (22-30) mmol/L Anion Gap 9 mmol/L BUN 14 (9-20) mg/dL Creatinine 0.80 (0.66-1.25) mg/dL Est GFR (CKD-EPI)AfAm >90 (>60 ml/min/1.73 sqM) Est GFR (CKD-EPI)NonAf 85 (>60 ml/min/1.73 sqM) Glucose 98 (74-99) mg/dL POC Glucose (mg/dL) (75-99) mg/dL POC Glu Seed Pelleter ID Plasma Lactic Acid Yanick (0.7-2.0) mmol/L Calcium 8.7 (8.4-10.2) mg/dL Total Bilirubin 0.9 (0.2-1.3) mg/dL AST 37 (17-59) U/L ALT 33 (21-72) U/L Alkaline Phosphatase 73 (38-126) U/L Total Creatine Kinase 33 L (55-170) U/L CK-MB (CK-2) 0.3 (0.0-2.4) ng/mL CK-MB (CK-2) Rel Index 0.9 Troponin I <0.012 (0.000-0.034) ng/mL Total Protein 6.2 L (6.3-8.2) g/dL Albumin 3.4 L (3.5-5.0) g/dL Amylase 31 (30-110) U/L Lipase 334 H (23-300) U/L Serum Alcohol <10 mg/dL Blood Type Blood Type Recheck Antibody Screen Spec Expiration Date 12/03/17 12/03/17 12/03/17 Range/Units 01:40 01:40 01:40 WBC (3.8-10.6) k/uL RBC (4.30-5.90) m/uL Hgb (13.0-17.5) gm/dL Hct (39.0-53.0) % MCV (80.0-100.0) fL MCH (25.0-35.0) pg MCHC (31.0-37.0) g/dL RDW (11.5-15.5) % Plt Count (150-450) k/uL Neutrophils % % Lymphocytes % % Monocytes % % Eosinophils % % Basophils % % Neutrophils # (1.3-7.7) k/uL Lymphocytes # (1.0-4.8) k/uL Monocytes # (0-1.0) k/uL Eosinophils # (0-0.7) k/uL Basophils # (0-0.2) k/uL PT 34.4 H (9.0-12.0) sec INR 3.8 H (<1.2) APTT 45.1 H (22.0-30.0) sec Sodium (137-145) mmol/L Potassium (3.5-5.1) mmol/L Chloride (98-107) mmol/L Carbon Dioxide (22-30) mmol/L Anion Gap mmol/L BUN (9-20) mg/dL Creatinine (0.66-1.25) mg/dL Est GFR (CKD-EPI)AfAm (>60 ml/min/1.73 sqM) Est GFR (CKD-EPI)NonAf (>60 ml/min/1.73 sqM) Glucose (74-99) mg/dL POC Glucose (mg/dL) (75-99) mg/dL POC Glu Seed Pelleter ID Plasma Lactic Acid Yanick 1.4 (0.7-2.0) mmol/L Calcium (8.4-10.2) mg/dL Total Bilirubin (0.2-1.3) mg/dL AST (17-59) U/L ALT (21-72) U/L Alkaline Phosphatase (38-126) U/L Total Creatine Kinase (55-170) U/L CK-MB (CK-2) (0.0-2.4) ng/mL CK-MB (CK-2) Rel Index Troponin I (0.000-0.034) ng/mL Total Protein (6.3-8.2) g/dL Albumin (3.5-5.0) g/dL Amylase (30-110) U/L Lipase (23-300) U/L Serum Alcohol mg/dL Blood Type A Positive Blood Type Recheck No Antibody Screen NEGATIVE Spec Expiration Date 12/06/2017 - 233912/03/17 Range/Units 02:18 WBC (3.8-10.6) k/uL RBC (4.30-5.90) m/uL Hgb (13.0-17.5) gm/dL Hct (39.0-53.0) % MCV (80.0-100.0) fL MCH (25.0-35.0) pg MCHC (31.0-37.0) g/dL RDW (11.5-15.5) % Plt Count (150-450) k/uL Neutrophils % % Lymphocytes % % Monocytes % % Eosinophils % % Basophils % % Neutrophils # (1.3-7.7) k/uL Lymphocytes # (1.0-4.8) k/uL Monocytes # (0-1.0) k/uL Eosinophils # (0-0.7) k/uL Basophils # (0-0.2) k/uL PT (9.0-12.0) sec INR (<1.2) APTT (22.0-30.0) sec Sodium (137-145) mmol/L Potassium (3.5-5.1) mmol/L Chloride (98-107) mmol/L Carbon Dioxide (22-30) mmol/L Anion Gap mmol/L BUN (9-20) mg/dL Creatinine (0.66-1.25) mg/dL Est GFR (CKD-EPI)AfAm (>60 ml/min/1.73 sqM) Est GFR (CKD-EPI)NonAf (>60 ml/min/1.73 sqM) Glucose (74-99) mg/dL POC Glucose (mg/dL) 100 H (75-99) mg/dL POC Glu Seed Pelleter ID Candido Lawrence Plasma Lactic Acid Yanick (0.7-2.0) mmol/L Calcium (8.4-10.2) mg/dL Total Bilirubin (0.2-1.3) mg/dL AST (17-59) U/L ALT (21-72) U/L Alkaline Phosphatase (38-126) U/L Total Creatine Kinase (55-170) U/L CK-MB (CK-2) (0.0-2.4) ng/mL CK-MB (CK-2) Rel Index Troponin I (0.000-0.034) ng/mL Total Protein (6.3-8.2) g/dL Albumin (3.5-5.0) g/dL Amylase (30-110) U/L Lipase (23-300) U/L Serum Alcohol mg/dL Blood Type Blood Type Recheck Antibody Screen Spec Expiration Date Disposition Clinical Impression: Acute subdural hematoma, Traumatic intracranial hemorrhage, Melanoma Disposition: OTHER INSTITUTION NOT DEFINED Condition: Serious Referrals: Michael Frye DO [Primary Care Provider] - 1-2 days - Out of Hospital Transfer - Req. Specs Out of Hospital Transfer - Requested Specifics: Other Emergency Center ([facility] - for trauma/Neurosurgery evaluation)
[2017-12-03 02:14] LABS: ALT 33 U/L (21-72); AST 37 U/L (17-59); Albumin 3.4 g/dL (3.5-5.0); Alcohol <10 mg/dL; Alkaline Phosphatase 73 U/L (38-126); Amylase 31 U/L (30-110); Anion Gap 9 mmol/L; Blood Urea Nitrogen 14 mg/dL (9-20); Calcium 8.7 mg/dL (8.4-10.2); Carbon Dioxide 22 mmol/L (22-30); Chloride 96 mmol/L (98-107); Glucose 98 mg/dL (74-99); Lipase 334 U/L (23-300); Sodium 127 mmol/L (137-145); Total Bilirubin 0.9 mg/dL (0.2-1.3); Total Protein 6.2 g/dL (6.3-8.2)
[2017-12-03 02:19] LABS: Glucose,Whole Blood 100 mg/dL (75-99)
[2017-12-03 02:22] LABS: Creatine Kinase 33 U/L (55-170)
[2017-12-03] MEDS ORDERED: PHYTONADIONE 10 MG in SODIUM CHLORIDE 0.9% 50 ML IVPB STA (02:22)
--- NOTE | 2017-12-03 02:24 | CT ---
EXAMINATION TYPE: CT brain brian arizmendi con DATE OF EXAM: 12/03/2017 COMPARISON: CT brain 06/11/2017 HISTORY: Fall, headache CT DLP: 1402.90 mGycm Automated exposure control for dose reduction was used. TECHNIQUE: CT scan of the head and cervical spine are performed without contrast. FINDINGS: There is high attenuation along the tentorium cerebelli. There is also high attenuation t hat is extra-axial over the left cerebellar hemisphere convexity that measures up to 2 cm in thicknes s. There is a central fluid low density component. There is some mass effect upon the fourth ventricl e which is displaced slightly to the right side. There is also high attenuation in the subdural space around the brainstem at the foramen magnum. There is cerebral cortical atrophy. There is patchy hypo density in the periventricular white matter. 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 The cervical vertebra have normal alignment. Skull base is intact. The posterior elements are intact. There is mild hypertrophic cervical facet arthropathy. There is no evidence of cervical spine fractu re. IMPRESSION: Mild degenerative changes in the cervical spine. No fracture. Acute subdural hemorrhage in the posterior fossa as above with additional hemorrhage over the left ce rebellar convexity and probably some cerebellar parenchymal hemorrhage. There is low-attenuation roun ded 17 mm fluid density probably within the left cerebellar hemisphere that could be old lacunar infa rct. Metastatic disease is also possible. There is surrounding acute parenchymal hemorrhage. Mild mas s effect. There is some white matter edema left cerebellar hemisphere. Hemorrhage extends into the fo ramen magnum in the subdural space. This exam was discussed with ER physician at 2:15 AM.
--- NOTE | 2017-12-03 02:27 | XR ---
EXAMINATION TYPE: XR chest 1V portable DATE OF EXAM: 12/03/2017 COMPARISON: 06/11/2017 HISTORY: Trauma. Fall. Pain. TECHNIQUE: Single frontal view of the chest is obtained. FINDINGS: There is no heart failure. There is slight blunting of left costophrenic angle. There is l eft axillary pacemaker with the lead tips in the right ventricle. There are sternal wires. Trachea is midline. IMPRESSION: Minimal pleural reaction or fluid at the left lung base without change compared to old e xam. No heart failure.
[2017-12-03 02:35] LABS: Creatine Kinase MB 0.3 ng/mL (0.0-2.4); Troponin I <0.012 ng/mL (0.000-0.034)
[2017-12-03 06:09] VITALS: BP 122/58; RESP 19; TEMP 97.8
== END 2017-12-03 03:24 | disposition short-term general hospital (02) ==
LOC: EC 01:25
DX: S06.5X9A Traumatic subdural hemorrhage with loss of consciousness of unspecified duration, initial encounter (principal); S00.81XA Abrasion of other part of head, initial encounter; R23.1 Pallor; R60.0 Localized edema; E11.9 Type 2 diabetes mellitus without complications; E07.9 Disorder of thyroid, unspecified; Z87.891 Personal history of nicotine dependence; Z79.01 Long term (current) use of anticoagulants; Z79.82 Long term (current) use of aspirin; Z79.84 Long term (current) use of oral hypoglycemic drugs; Z79.899 Other long term (current) drug therapy; Z88.0 Allergy status to penicillin; Z85.820 Personal history of malignant melanoma of skin; Z85.830 Personal history of malignant neoplasm of bone; Z92.21 Personal history of antineoplastic chemotherapy; Z98.890 Other specified postprocedural states; Z92.3 Personal history of irradiation; Z95.0 Presence of cardiac pacemaker; W06.XXXA Fall from bed, initial encounter
CPT/HCPCS: 36415; 86900; 86901; 80053; 82150; 82550; 82553; 83605; 83690; 84484; 85025; 85610; 85730; 86850; 80320; 71045; 72125; 70450; 99285; 96365; J3430; 96360

== ENCOUNTER 2017-12-10 02:20 | Inpatient (IN) | payer MEDICARE ==
[2017-12-10] MEDS ORDERED: SODIUM CHLORIDE 0.9% 1,000 ML IV ONE ×2 (03:01→05:58)
[2017-12-10 03:09] LABS: Basophils % (A) 0 %; Eosinophils # (A) 0.2 k/uL (0-0.7); Eosinophils % (A) 2 %; HCT 35.5 % (39.0-53.0); HGB 11.7 gm/dL (13.0-17.5); Lymphocytes # (A) 1.2 k/uL (1.0-4.8); Lymphocytes % (A) 12 %; MCV 93.8 fL (80.0-100.0); Mean Platelet Volume 6.2; Monocytes # (A) 0.7 k/uL (0-1.0); Monocytes % (A) 7 %; Neutrophils # (A) 7.7 k/uL (1.3-7.7); Neutrophils % (A) 78 %; Platelet Count 249 k/uL (150-450); RBC 3.78 m/uL (4.30-5.90); RDW 15.8 % (11.5-15.5); WBC 9.8 k/uL (3.8-10.6)
[2017-12-10 03:19] LABS: INR 1.4 (<1.2); Partial Thromboplastin Time 25.8 sec (22.0-30.0); Prothrombin Time 12.7 sec (9.0-12.0)
[2017-12-10 03:21] LABS: ALT 44 U/L (21-72); AST 25 U/L (17-59); Albumin 3.3 g/dL (3.5-5.0); Alkaline Phosphatase 64 U/L (38-126); Anion Gap 8 mmol/L; Blood Urea Nitrogen 23 mg/dL (9-20); Carbon Dioxide 24 mmol/L (22-30); Chloride 94 mmol/L (98-107); Glucose 90 mg/dL (74-99); Magnesium 1.9 mg/dL (1.6-2.3); Sodium 126 mmol/L (137-145); Total Bilirubin 0.8 mg/dL (0.2-1.3); Total Protein 6.1 g/dL (6.3-8.2)
[2017-12-10 03:22] LABS: Creatine Kinase <20 U/L (55-170)
--- NOTE | 2017-12-10 03:34 | XR ---
EXAMINATION TYPE: XR chest 1V portable DATE OF EXAM: 12/10/2017 COMPARISON: 12/03/2017 HISTORY: Weakness TECHNIQUE: Single frontal view of the chest is obtained. FINDINGS: There is no heart failure nor confluent pneumonic infiltrate. There is left axillary pacem vane with the lead tips in the right ventricle. There are sternal wires. There are chest leads. IMPRESSION: No active cardiopulmonary disease. No change. Mild pulmonary fibrotic changes.
[2017-12-10 03:35] LABS: Creatine Kinase MB 0.3 ng/mL (0.0-2.4); Troponin I <0.012 ng/mL (0.000-0.034)
[2017-12-10 03:48] LABS: Appearance,Urine Cloudy (Clear); Bacteria,Urine Occasional /hpf; Bilirubin,Urine Negative (Negative); Blood,Urine Moderate (Negative); Color,Urine Yellow; Glucose,Urine (UA) Negative (Negative); Ketones,Urine Negative (Negative); Leukocyte Esterase,Urine Moderate (Negative); Mucus,Urine Few /hpf; Nitrite,Urine Negative (Negative); Protein,Urine 1+ (Negative); RBC,Urine 68 /hpf (0-5); Specific Gravity,Urine 1.018 (1.001-1.035); WBC,Urine 103 /hpf (0-5)
--- NOTE | 2017-12-10 03:50 | CT ---
EXAMINATION TYPE: CT brain wo con DATE OF EXAM: 12/10/2017 COMPARISON: 12/03/2017 HISTORY: weakness and vomitting CT DLP: 1121 mGycm Automated exposure control for dose reduction was used. FINDINGS: There is some mild hypodensity in the left cerebellar hemisphere. There is also patchy peripheral hig h attenuation in the left cerebellar hemisphere. This is consistent with resolving parenchymal hemorr lary and encephalomalacia. There is no midline shift. There is diffuse cerebral cortical atrophy. James varium is intact. There is mild mucosal thickening in the left side ethmoid sinus. IMPRESSION: THERE IS SIGNIFICANT RESOLUTION OF THE LEFT CEREBELLAR HEMORRHAGE COMPARED TO OLD EXAM. NO EVIDENCE O F ANY NEW HEMORRHAGE. NO MASS EFFECT. 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 STABLE ETHMOID SINU SITIS.
[2017-12-10] MEDS ORDERED: LEVOFLOXACIN 750 MG TAB PO STA (05:58)
[2017-12-10] MEDS ORDERED: ONDANSETRON 4 MG/2 ML VIAL IVP PRN (07:21)
[2017-12-10] MEDS ORDERED: NALOXONE 0.4 MG/ML 1 ML VIAL IV PRN (07:35)
[2017-12-10] MEDS: HYDROcodone/APAP 5-325MG 1 EACH TAB PO PRN (07:36)
--- NOTE | 2017-12-10 07:40 | ED ---
Weakness HPI - General Chief complaint: Weakness Stated complaint: Weakness,vomiting Time Seen by Provider: 12/10/17 02:46 Source: EMS Mode of arrival: EMS Limitations: no limitations - History of Present Illness Initial comments: This patient is 77-year-old man who comes to the emergency department to be evaluated for generalized weakness and difficulty with walking. He does relate that he had just been discharged from [facility] approximate 24 hours ago after he had been admitted there for a few days related to a subdural hematoma. The patient had been discharged there, but the felt that he should have gone for rehabilitation placement. The patient has been expressing worsening of generalized weakness. He denies any focal weakness. Today he was not able to get up from his chair and he also had nausea with an episode of vomiting. MD Complaint: generalized weakness, lack of energy, difficulty walking Onset/Timin -: days(s) Location: generalized Severity: moderate Consistency: constant Improves with: none Worsens with: exertion Context: recent illness, history of similar Associated Symptoms: nausea/vomiting - Related Data Home Medications Medication Instructions Recorded Confirmed Aspirin 81 mg PO DAILY 10/09/14 12/10/17 Oxybutynin Chloride [Ditropan] 5 mg PO HS 10/09/14 12/10/17 Warfarin Sodium 5 mg PO DIRECTED 10/09/14 12/10/17 Docusate [Colace] 100 mg PO BID 12/03/15 12/10/17 Hydrocodone/Acetaminophen [[place] 1 tab PO QID PRN 03/04/17 12/10/17 5-325] Multivitamins, Thera [Multivitamin 1 tab PO DAILY 06/06/17 12/10/17 (formulary)] metFORMIN HCL ER [Glucophage Xr] 500 mg PO W/SUPPER 06/06/17 12/10/17 Metoprolol Succinate (ER) [Toprol 100 mg PO DAILY@119906/07/17 12/10/17 XL] Amiodarone [Cordarone] 100 mg PO DAILY 12/10/17 12/10/17 Hydrocortisone [Cortef] 10 mg PO DAILY@1200 12/10/17 12/10/17 Hydrocortisone [Cortef] 20 mg PO DAILY 12/10/17 12/10/17 Levothyroxine Sodium [Synthroid] 175 mcg PO DAILY 12/10/17 12/10/17 Losartan Potassium [Cozaar] 25 mg PO DAILY 12/10/17 12/10/17 Ondansetron [Zofran] 4 mg PO Q6H PRN 12/10/17 12/10/17 Spironolactone [Aldactone] 12.5 mg PO DAILY 12/10/17 12/10/17 Tamsulosin [Flomax] 0.4 mg PO DAILY 12/10/17 12/10/17 levETIRAcetam [Keppra] 500 mg PO Q12HR 12/10/17 12/10/17 Allergies Allergy/AdvReac Type Severity Reaction Status Date / Time Penicillins Allergy Unknown Verified 12/10/17 07:13 Childhood Review of Systems ROS Statement: Those systems with pertinent positive or pertinent negative responses have been documented in the HPI. ROS Other: All systems not noted in ROS Statement are negative. Constitutional: Reports: weakness (Generalized). 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 REC 6 TX RADIATION-APR 2013 History of Any Multi-Drug Resistant Organisms: None Reported Past Surgical History: AICD, Coronary Bypass/CABG Additional Past Surgical History / Comment(s): CABG-"CLEANED PUMONARY ARTERY", MELANOMA AND 10 LYMPHNODES REMOVED RT LEG,ORCHIECTOMY,REPAIR FINGER AMPUTATON Past Anesthesia/Blood Transfusion Reactions: No Reported Reaction Type of Cardiac Device: AICD Device Placement Date:: 2012 [facility] LT CHEST Past Psychological History: No Psychological Hx Reported Smoking Status: Former smoker Past Alcohol Use History: None Reported Past Drug Use History: None Reported - Past Family History Mother Family Medical History: Cancer Additional Family Medical History / Comment(s): cervical cancer Father Family Medical History: Myocardial Infarction ([place]) Son(s) Family Medical History: Myocardial Infarction ([place]) Additional Family Medical History / Comment(s): SONS X 2 General Exam Limitations: no limitations General appearance: alert, in no apparent distress Head exam: Present: atraumatic, normocephalic Eye exam: Present: normal appearance. Absent: scleral icterus, conjunctival injection ENT exam: Present: mucous membranes dry Neck exam: Present: normal inspection Respiratory exam: Present: normal lung sounds bilaterally. Absent: respiratory distress, wheezes, rales, rhonchi, stridor Cardiovascular Exam: Present: regular rate, normal rhythm, normal heart sounds. Absent: systolic murmur, diastolic murmur, rubs, gallop GI/Abdominal exam: Present: soft. Absent: distended, tenderness, guarding, rebound, mass Extremities exam: Present: normal inspection, normal capillary refill. Absent: pedal edema, calf tenderness Back exam: Present: normal inspection. Absent: CVA tenderness (R), CVA tenderness (L) Neurological exam: Present: alert Skin exam: Present: warm, dry, intact, pallor. Absent: rash Course Vital Signs 12/10/17 12/10/17 12/10/17 02:41 02:45 03:11 Temperature 97.9 F Pulse Rate 60 63 Respiratory 18 18 Rate Blood Pressure 103/57 75/50 99/56 O2 Sat by Pulse 99 99 Oximetry 12/10/17 12/10/17 12/10/17 03:43 04:35 06:10 Temperature 97.9 F Pulse Rate 60 60 63 Respiratory 18 18 18 Rate Blood Pressure 119/63 115/68 112/74 O2 Sat by Pulse 98 99 100 Oximetry 12/10/17 07:32 Temperature Pulse Rate 73 Respiratory 18 Rate Blood Pressure 104/57 O2 Sat by Pulse 100 Oximetry Medical Decision Making - Lab Data Result diagrams: 12/10/17 02:38 12/10/17 02:38 Lab Results 12/10/17 12/10/17 12/10/17 Range/Units 02:38 02:38 02:38 WBC 9.8 (3.8-10.6) k/uL RBC 3.78 L (4.30-5.90) m/uL Hgb 11.7 L (13.0-17.5) gm/dL Hct 35.5 L (39.0-53.0) % MCV 93.8 (80.0-100.0) fL MCH 31.0 (25.0-35.0) pg MCHC 33.0 (31.0-37.0) g/dL RDW 15.8 H (11.5-15.5) % Plt Count 249 (150-450) k/uL Neutrophils % 78 % Lymphocytes % 12 % Monocytes % 7 % Eosinophils % 2 % Basophils % 0 % Neutrophils # 7.7 (1.3-7.7) k/uL Lymphocytes # 1.2 (1.0-4.8) k/uL Monocytes # 0.7 (0-1.0) k/uL Eosinophils # 0.2 (0-0.7) k/uL Basophils # 0.0 (0-0.2) k/uL PT (9.0-12.0) sec INR (<1.2) APTT (22.0-30.0) sec Sodium 126 L (137-145) mmol/L Potassium 4.0 (3.5-5.1) mmol/L Chloride 94 L (98-107) mmol/L Carbon Dioxide 24 (22-30) mmol/L Anion Gap 8 mmol/L BUN 23 H (9-20) mg/dL Creatinine 0.60 L (0.66-1.25) mg/dL Est GFR (CKD-EPI)AfAm >90 (>60 ml/min/1.73 sqM) Est GFR (CKD-EPI)NonAf >90 (>60 ml/min/1.73 sqM) Glucose 90 (74-99) mg/dL Plasma Lactic Acid [place] (0.7-2.0) mmol/L Calcium 9.0 (8.4-10.2) mg/dL Magnesium 1.9 (1.6-2.3) mg/dL Total Bilirubin 0.8 (0.2-1.3) mg/dL AST 25 (17-59) U/L ALT 44 (21-72) U/L Alkaline Phosphatase 64 (38-126) U/L Total Creatine Kinase <20 L (55-170) U/L CK-MB (CK-2) 0.3 (0.0-2.4) ng/mL CK-MB (CK-2) Rel Index Troponin I <0.012 (0.000-0.034) ng/mL Total Protein 6.1 L (6.3-8.2) g/dL Albumin 3.3 L (3.5-5.0) g/dL Urine Color Urine Appearance (Clear) Urine pH (5.0-8.0) Ur Specific [place] (1.001-1.035) Urine Protein (Negative) Urine Glucose (UA) (Negative) Urine Ketones (Negative) Urine Blood (Negative) Urine Nitrite (Negative) Urine Bilirubin (Negative) Urine Urobilinogen (<2.0) mg/dL Ur Leukocyte Esterase (Negative) Urine RBC (0-5) /hpf Urine WBC (0-5) /hpf Urine Bacteria (None) /hpf Urine Mucus (None) /hpf 12/10/17 12/10/17 12/10/17 Range/Units 02:38 02:38 03:16 WBC (3.8-10.6) k/uL RBC (4.30-5.90) m/uL Hgb (13.0-17.5) gm/dL Hct (39.0-53.0) % MCV (80.0-100.0) fL MCH (25.0-35.0) pg MCHC (31.0-37.0) g/dL RDW (11.5-15.5) % Plt Count (150-450) k/uL Neutrophils % % Lymphocytes % % Monocytes % % Eosinophils % % Basophils % % Neutrophils # (1.3-7.7) k/uL Lymphocytes # (1.0-4.8) k/uL Monocytes # (0-1.0) k/uL Eosinophils # (0-0.7) k/uL Basophils # (0-0.2) k/uL PT 12.7 H (9.0-12.0) sec INR 1.4 H (<1.2) APTT 25.8 (22.0-30.0) sec Sodium (137-145) mmol/L Potassium (3.5-5.1) mmol/L Chloride (98-107) mmol/L Carbon Dioxide (22-30) mmol/L Anion Gap mmol/L BUN (9-20) mg/dL Creatinine (0.66-1.25) mg/dL Est GFR (CKD-EPI)AfAm (>60 ml/min/1.73 sqM) Est GFR (CKD-EPI)NonAf (>60 ml/min/1.73 sqM) Glucose (74-99) mg/dL Plasma Lactic Acid [place] 1.3 (0.7-2.0) mmol/L Calcium (8.4-10.2) mg/dL Magnesium (1.6-2.3) mg/dL Total Bilirubin (0.2-1.3) mg/dL AST (17-59) U/L ALT (21-72) U/L Alkaline Phosphatase (38-126) U/L Total Creatine Kinase (55-170) U/L CK-MB (CK-2) (0.0-2.4) ng/mL CK-MB (CK-2) Rel Index Troponin I (0.000-0.034) ng/mL Total Protein (6.3-8.2) g/dL Albumin (3.5-5.0) g/dL Urine Color Yellow Urine Appearance Cloudy (Clear) Urine pH 7.0 (5.0-8.0) Ur Specific [place] 1.018 (1.001-1.035) Urine Protein 1+ H (Negative) Urine Glucose (UA) Negative (Negative) Urine Ketones Negative (Negative) Urine Blood Moderate H (Negative) Urine Nitrite Negative (Negative) Urine Bilirubin Negative (Negative) Urine Urobilinogen 4.0 (<2.0) mg/dL Ur Leukocyte Esterase Moderate H (Negative) Urine RBC 68 H (0-5) /hpf Urine WBC 103 H (0-5) /hpf Urine Bacteria Occasional H (None) /hpf Urine Mucus Few H (None) /hpf Disposition Clinical Impression: Generalized muscle weakness, Hyponatremia, Dehydration Disposition: ADMITTED IP TO THIS [facility] Condition: Poor Referrals: Michael Frye DO [Primary Care Provider] - 1-2 days
[2017-12-10] MEDS ORDERED: ASPIRIN 81 MG PO SCH (09:00)
[2017-12-10] MEDS ORDERED: TAMSULOSIN 0.4 MG CAP.ER.24H PO SCH (09:00)
[2017-12-10] MEDS ORDERED: HYDROCORTISONE 20 MG TAB PO SCH (09:00)
[2017-12-10] MEDS ORDERED: NON-FORMULARY DRUG (Levothyroxine Sodium [Synthroid] 175 MCG) PO SCH (09:00)
[2017-12-10] MEDS: SODIUM CHLORIDE 0.9% 1,000 ML IV SCH ×3 (10:20→17:56)
[2017-12-10] MEDS: LEVOTHYROXINE 75 MCG TAB PO SCH (10:48)
[2017-12-10] MEDS: AMIODARONE 100 MG TAB PO SCH (10:48)
[2017-12-10] MEDS: LEVOTHYROXINE 100 MCG TAB PO SCH (10:48)
[2017-12-10] MEDS: levETIRAcetam 500 MG TAB PO SCH ×2 (10:49→21:23)
[2017-12-10] MEDS: DOCUSATE 100 MG CAP PO SCH ×2 (10:49→21:23)
[2017-12-10] MEDS: LOSARTAN 25 MG TAB PO SCH (10:50)
[2017-12-10] MEDS: SPIRONOLACTONE 25 MG TAB PO SCH (10:50)
[2017-12-10 11:11] LABS: Glucose,Whole Blood 77 mg/dL (75-99)
[2017-12-10 11:40] LABS: Basophils % (A) 0 %; Eosinophils # (A) 0.2 k/uL (0-0.7); Eosinophils % (A) 2 %; HCT 31.9 % (39.0-53.0); HGB 10.3 gm/dL (13.0-17.5); Lymphocytes # (A) 1.1 k/uL (1.0-4.8); Lymphocytes % (A) 11 %; MCH 30.7 pg (25.0-35.0); MCHC 32.2 g/dL (31.0-37.0); MCV 95.2 fL (80.0-100.0); Monocytes # (A) 0.6 k/uL (0-1.0); Monocytes % (A) 6 %; Neutrophils # (A) 8.4 k/uL (1.3-7.7); Neutrophils % (A) 81 %; Platelet Count 216 k/uL (150-450); RBC 3.35 m/uL (4.30-5.90); RDW 15.7 % (11.5-15.5); WBC 10.4 k/uL (3.8-10.6)
[2017-12-10 11:45] LABS: ALT 40 U/L (21-72); AST 23 U/L (17-59); Albumin 2.7 g/dL (3.5-5.0); Alkaline Phosphatase 55 U/L (38-126); Anion Gap 7 mmol/L; Blood Urea Nitrogen 19 mg/dL (9-20); Calcium 7.9 mg/dL (8.4-10.2); Carbon Dioxide 23 mmol/L (22-30); Chloride 97 mmol/L (98-107); Glucose 77 mg/dL (74-99); Potassium 3.8 mmol/L (3.5-5.1); Sodium 127 mmol/L (137-145); Total Bilirubin 0.8 mg/dL (0.2-1.3); Total Protein 5.3 g/dL (6.3-8.2)
[2017-12-10] MEDS ORDERED: HYDROCORTISONE 10 MG TAB PO SCH (12:00)
[2017-12-10] MEDS ORDERED: RX INFO: IV CONTRAST WAS GIVEN 1 EACH MISC MISCELLANE PRN (12:16)
--- NOTE | 2017-12-10 13:24 | P.HPIM ---
History of Present Illness H&P Date: 12/10/17 Chief Complaint: Weakness, nausea, vomiting 77-year-old male who presented to the emergency room via EMS for increased weakness, nausea, and vomiting. The patients provided the majority of the HPI as patient is lethargic. The patient's states that yesterday he was walking to the bathroom and he was very weak and almost fell. She states his legs wanted to give out on him. She also reports that the patient started complaining of nausea yesterday afternoon and had multiple episodes of emesis. The patient denies shortness of breath. Denies cough or sputum production. Denies chest pain or pressure. Denies fever of chills. 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 He is currently undergoing treatment with Opdivo. He was recently admitted to [facility] for a subdural hemorrhage. He was discharged from [facility] on Thursday12/08/2017. Patients states he had a urinary catheter inserted while hospitalized at [facility]. She states on the day of discharge it was removed. However, the patient was unable to void on his own so the catheter was re-inserted and he was discharged home with an indwelling urinary catheter. The patient has a history of malignant melanoma that started on his right thigh in 2011. In September 2011 he underwent radical excision with inguinal node dissection. At that time the patient refused adjuvant therapy and elected for observation per oncology. The patient developed metastatic disease in the lumbar spine in April 2013 and received radiation. In June 2016 he was found to have bilateral adrenal masses and was started on immunotherapy with Opdivo in July 2016. The states his Opdivo has been held since that time and he was just restarted earlier this month. The patient a history of coronary artery disease with previous CABG. The patient was previously taking Coumadin, but the states she is unsure of the exact reason he was taking it. He has not taken his coumadin since December 03, 2017 when he was admitted to [facility]. According to previous documentation in EMR the patient has a history of paroxysmal atrial fibrillation, which his was unable to confirm. He also has a history of BPH, diabetes mellitus, COPD, and hypothyroidism. The patient underwent placement of an AICD in 2012. He is a former cigarette smoker and quit smoking in 1979. Chest x-ray: Negative for an acute cardiopulmonary disease. Laboratory data white count 9.8. Hemoglobin 11.7. Platelet count 249. INR 1.4. Sodium 126. Potassium 4.0. BUN 23. Creatinine 0.60. Glucose 90. Lactic acid 1.3. Magnesium 1.9. Troponin negative 1. Urinalysis reveals cloudy yellow urine, 1+ proteinuria, moderate blood, moderate leukocyte esterase, RBC 60, WBC 103, occasional bacteria, few mucus The patient received Levaquin 750 mg by mouth 1 dose and 2 L of normal saline in the emergency room. He was started on IV fluids at 125 mL an hour. The patient was admitted to the hospital under the care of Dr. Frye. Consultations were placed to oncology. Review of Systems Those systems with pertinent positive or pertinent negative responses have been documented in the HPI Past Medical History Past Medical History: Cancer, COPD, Diabetes Mellitus, GERD/Reflux, Hyperlipidemia, Prostate Disorder, Thyroid Disorder Additional Past Medical History / Comment(s): SEE DR ZIMMER'S H&P,INCREASED FATIGUE,EMPHYSEMA,BRONCHITIS, MALIGNANT MELANOMA METS TO SPINE REC 6 TX RADIATION-APR 2013 History of Any Multi-Drug Resistant Organisms: None Reported Past Surgical History: AICD, Coronary Bypass/CABG Additional Past Surgical History / Comment(s): CABG-"CLEANED PUMONARY ARTERY", MELANOMA AND 10 LYMPHNODES REMOVED RT LEG,ORCHIECTOMY,REPAIR FINGER AMPUTATON Past Anesthesia/Blood Transfusion Reactions: No Reported Reaction Type of Cardiac Device: AICD Device Placement Date:: 2012 [facility] LT CHEST Past Psychological History: No Psychological Hx Reported Smoking Status: Former smoker Past Alcohol Use History: None Reported Past Drug Use History: None Reported - Past Family History Mother Family Medical History: Cancer Additional Family Medical History / Comment(s): cervical cancer Father Family Medical History: Myocardial Infarction ([place]) Son(s) Family Medical History: Myocardial Infarction ([place]) Additional Family Medical History / Comment(s): SONS X 2 Medications and Allergies Home Medications Medication Instructions Recorded Confirmed Type Aspirin 81 mg PO DAILY 10/09/14 12/10/17 History Oxybutynin Chloride [Ditropan] 5 mg PO HS 10/09/14 12/10/17 History Warfarin Sodium 5 mg PO DIRECTED 10/09/14 12/10/17 History Docusate [Colace] 100 mg PO BID 12/03/15 12/10/17 History Hydrocodone/Acetaminophen [[place] 1 tab PO QID PRN 03/04/17 12/10/17 History 5-325] Multivitamins, Thera [Multivitamin 1 tab PO DAILY 06/06/17 12/10/17 History (formulary)] metFORMIN HCL ER [Glucophage Xr] 500 mg PO W/SUPPER 06/06/17 12/10/17 History Metoprolol Succinate (ER) [Toprol 100 mg PO DAILY@1200 06/07/17 12/10/17 History XL] Amiodarone [Cordarone] 100 mg PO DAILY 12/10/17 12/10/17 History Hydrocortisone [Cortef] 10 mg PO DAILY@1200 12/10/17 12/10/17 History Hydrocortisone [Cortef] 20 mg PO DAILY 12/10/17 12/10/17 History Levothyroxine Sodium [Synthroid] 175 mcg PO DAILY 12/10/17 12/10/17 History Losartan Potassium [Cozaar] 25 mg PO DAILY 12/10/17 12/10/17 History Ondansetron [Zofran] 4 mg PO Q6H PRN 12/10/17 12/10/17 History Spironolactone [Aldactone] 12.5 mg PO DAILY 12/10/17 12/10/17 History Tamsulosin [Flomax] 0.4 mg PO DAILY 12/10/17 12/10/17 History levETIRAcetam [Keppra] 500 mg PO Q12HR 12/10/17 12/10/17 History Allergies Allergy/AdvReac Type Severity Reaction Status Date / Time Penicillins Allergy Unknown Verified 12/10/17 07:13 Childhood Physical Exam Vitals: Vital Signs Temp Pulse Pulse Resp BP BP Pulse Ox 12/10/17 09:03 97.6 F 64 16 95/59 97 12/10/17 08:16 97.8 F 66 18 100/54 96 12/10/17 07:32 73 18 104/57 100 12/10/17 06:10 97.9 F 63 18 112/74 100 12/10/17 04:35 60 18 115/68 99 12/10/17 03:43 60 18 119/63 98 12/10/17 03:11 63 18 99/56 99 12/10/17 02:45 75/50 08/30/18 02:41 97.9 F 60 18 103/57 99 Intake and Output 12/09/17 12/10/17 12/10/17 22:59 06:59 14:59 Other: Weight 78.925 kg GENERAL: This is a 77-year-old male in no apparent distress at the time of examination. Pleasant and cooperative. HEENT: Head is atraumatic, normocephalic. Pupils are equal, round, and reactive to light. Sclerae anicteric. Conjunctivae are clear. Mucus membranes of the mouth are moist. Neck is supple. RESPIRATORY: Clear to ausculation. No wheezes, rales, or rhonchi. No use of accessory muscles. Patient maintaining oxygen saturation greater than 92%. No chest wall tenderness is noted on palpation or with deep breathing. CARDIOVASCULAR: Regular rate and rhythm. S1 and S2 noted. No JVD noted. No S3 or S4 noted. GASTROINTESTINAL/: No distention noted. Abdomen soft. Normal active bowel sounds auscultated x 4 quadrants. No pain or tenderness noted upon palpation. Indwelling urinary catheter noted with yellow urine. INTEGUMENTARY: No cyanosis. No jaundice. No rashes noted. No cellulitis noted. EXTREMITIES: 2+ peripheral pulses. No evidence of peripheral edema. No calf tenderness noted. NEUROLOGIC: Cranial nerves II-XII intact. PSYCHIATRIC: Lethargic. Easily arousable to verbal stimulation. Oriented X 3. Results CBC & Chem 7: 12/10/17 11:21 12/10/17 11:21 Labs: Abnormal Lab Results - Last 24 Hours (Table) 12/10/17 12/10/17 12/10/17 Range/Units 02:38 02:38 02:38 RBC 3.78 L (4.30-5.90) m/uL Hgb 11.7 L (13.0-17.5) gm/dL Hct 35.5 L (39.0-53.0) % RDW 15.8 H (11.5-15.5) % PT (9.0-12.0) sec INR (<1.2) Sodium 126 L (137-145) mmol/L Chloride 94 L (98-107) mmol/L BUN 23 H (9-20) mg/dL Creatinine 0.60 L (0.66-1.25) mg/dL Total Creatine Kinase <20 L (55-170) U/L Total Protein 6.1 L (6.3-8.2) g/dL Albumin 3.3 L (3.5-5.0) g/dL Urine Protein (Negative) Urine Blood (Negative) Ur Leukocyte Esterase (Negative) Urine RBC (0-5) /hpf Urine WBC (0-5) /hpf Urine Bacteria (None) /hpf Urine Mucus (None) /hpf 12/10/17 12/10/17 Range/Units 02:38 03:16 RBC (4.30-5.90) m/uL Hgb (13.0-17.5) gm/dL Hct (39.0-53.0) % RDW (11.5-15.5) % PT 12.7 H (9.0-12.0) sec INR 1.4 H (<1.2) Sodium (137-145) mmol/L Chloride (98-107) mmol/L BUN (9-20) mg/dL Creatinine (0.66-1.25) mg/dL Total Creatine Kinase (55-170) U/L Total Protein (6.3-8.2) g/dL Albumin (3.5-5.0) g/dL Urine Protein 1+ H (Negative) Urine Blood Moderate H (Negative) Ur Leukocyte Esterase Moderate H (Negative) Urine RBC 68 H (0-5) /hpf Urine WBC 103 H (0-5) /hpf Urine Bacteria Occasional H (None) /hpf Urine Mucus Few H (None) /hpf Assessment and Plan Plan: ASSESSMENT: Urinary tract infection, present on admission, suspect secondary to indwelling urinary catheter Hypovolemic hyponatremia Recent hospitalization at [facility] for subdural hematoma of posterior fossa and cerebellar parenchymal hemmorhage, 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 Appreciate recommendations and input Spoke with CLIVE Lopez from oncology. Patient to go for CT with contrast Will DC metformin due to pending CT scan. Will restart Metformin Thursday at 1730 Levaquin 750mg IV Q24 hours Await results of urine culture Continue IV fluids at 125cc/hr Repeat labs at 1200 and tomorrow AM Increase Flomax to 0.4mg PO BID Continue indwelling urinary catheter Hold antihypertensive medications for SBP less than 100 Hold Lopressor for heartrate less than 65 Continue to hold Coumadin and aspirin at this time per Dr. Frye [place] meds as appropriate Monitor labs GI prophylaxis: Protonix 40 mg PO Daily DVT prophylaxis: SCDs to bilateral LE Monitor vital signs and address as appropriate Discharge planning: Patient to return home at time of discharge pending patients condition Further recommendations pending patient's course Records from [facility] Love have been obtained and reviewed. Copy placed in patients chart. Nurse practitioner note has been reviewed by physician. Signing provider agrees with the documented findings, assessment, and plan of care.
[2017-12-10 14:21] VITALS: BMI 26.4
[2017-12-10] MEDS: INSULIN ASPART 100 UNIT/ML 1 ML 10 ML VIAL SQ SCH ×3 (14:43→21:23)
[2017-12-10] MEDS: METOPROLOL SUCCINATE (ER) 100 MG TAB.ER.24H PO SCH (14:43)
[2017-12-10] MEDS: PANTOPRAZOLE 40 MG TABLET PO SCH ×2 (14:47→17:57)
[2017-12-10] MEDS: MULTIVITAMINS, THERA 1 EACH TAB PO SCH (14:47)
[2017-12-10] MEDS: DEXAMETHASONE SOD PHOSPHATE 4 MG/ML 1 ML VIAL IV SCH ×3 (14:48→23:37)
--- NOTE | 2017-12-10 16:29 | P.CONS ---
History of Present Illness - Reason for Consult Consult date: 12/10/17 Metastatic Melanoma Requesting physician: Red Hammer - History of Present Illness This a very nice patient who noticed a bleeding black lesion on his right thigh in .He had a wide excision which revealed malignant nodular melanoma.In ,he had a wider excision which still revealed positive margins.He was referred to [facility]. and had a PET scan which was negative,then in ,he had a re-excision with right inguinal nodes dissection. The final pathology report revealed an ulcerated 2.1mm thick melanoma,mitotic index of 5,2/10 postive inguinal lymph nodes without extranodal extension. He fell in 05/2012 and had a bone scan which revealed a questionable area in the rib,xr was consistent with a fracture,his pain has resolved. The patient has significant cardiac co-morbidities,EF of 30%,has intermittent ventricular tachycardia,has AICD. He had significant back pain,had CT scan of lumbar spine on 04/29/2013 which revealed metastatic disease and a soft tissue mass at L4,he received palliative radiation therapy which was completed on 05/27/2013 and his back pain significantly improved. C-KIT mutatuion was negative,BRAF V600E was positive. The patient declined systemic therapy and decided to continue with clinical monitoring. On 09/16/2013,repeat CT scan of chest/abdomen/pelvis revealed no evidence of visceral metastasis,stable bone lesions. Repeat CT scan of chest/abdomen/pelvis (due to worsening back pain), on 2015 revealed new large bilateral adrenal masses suspicious for metastatic disease. He started opdivo on 08/06/2016. On 11/04/[address] scan of chest/abdomen/pelvis revealed improvement in his metastatic disease. On 01/27/[address] scan of chest/abdomen/pelvis revealed stable disease compared to scan. On 03/04/2017,he developed severe hypotension,nausea/vomiting,was directed to ER ,work up revealed hypoadrenalism,related to opdivo,he was started on cotef . On 06/22/2017,repeat CT scan of chest/abdomen/pelvis revealed stable disease. On 10/06/2017,repeat CT scan of chest/abdomen/pelvis (due to worsening back pain )revealed evidence of disease progression. He went back on opdivo on 11/09/2017. Then recently was admitted to [facility] with subdural hemorrhage. Discharged on 12/08/17. He has been on warfarin and this has been managed by cardiology. He was on coumadin for Paroxysmal Atrial Fibrillation. He does have known history of Diabetes, COPD, Hypothyroidism and AICD. T Review of Systems A 14 point review of systems assessed and completed and all negative except HPI Past Medical History Past Medical History: Cancer, COPD, Diabetes Mellitus, GERD/Reflux, Hyperlipidemia, Prostate Disorder, Thyroid Disorder Additional Past Medical History / Comment(s): SEE DR ZIMMER'S H&P,INCREASED FATIGUE,EMPHYSEMA,BRONCHITIS, MALIGNANT MELANOMA METS TO SPINE REC 6 TX RADIATION-APR 2013 History of Any Multi-Drug Resistant Organisms: None Reported Past Surgical History: AICD, Coronary Bypass/CABG Additional Past Surgical History / Comment(s): CABG-"CLEANED PUMONARY ARTERY", MELANOMA AND 10 LYMPHNODES REMOVED RT LEG,ORCHIECTOMY,REPAIR FINGER AMPUTATON Past Anesthesia/Blood Transfusion Reactions: No Reported Reaction Type of Cardiac Device: AICD Device Placement Date:: 2012 [facility] LT CHEST Past Psychological History: No Psychological Hx Reported Smoking Status: Former smoker Past Alcohol Use History: None Reported Past Drug Use History: None Reported - Past Family History Mother Family Medical History: Cancer Additional Family Medical History / Comment(s): cervical cancer Father Family Medical History: Myocardial Infarction ([place]) Son(s) Family Medical History: Myocardial Infarction ([place]) Additional Family Medical History / Comment(s): SONS X 2 Medications and Allergies Home Medications Medication Instructions Recorded Confirmed Type Aspirin 81 mg PO DAILY 10/09/14 12/10/17 History Oxybutynin Chloride [Ditropan] 5 mg PO HS 10/09/14 12/10/17 History Warfarin Sodium 5 mg PO DIRECTED 10/09/14 12/10/17 History Docusate [Colace] 100 mg PO BID 12/03/15 12/10/17 History Hydrocodone/Acetaminophen [[place] 1 tab PO QID PRN 03/04/17 12/10/17 History 5-325] Multivitamins, Thera [Multivitamin 1 tab PO DAILY 06/06/17 12/10/17 History (formulary)] metFORMIN HCL ER [Glucophage Xr] 500 mg PO W/SUPPER 06/06/17 12/10/17 History Metoprolol Succinate (ER) [Toprol 100 mg PO DAILY@1200 06/07/17 12/10/17 History XL] Amiodarone [Cordarone] 100 mg PO DAILY 12/10/17 12/10/17 History Hydrocortisone [Cortef] 10 mg PO DAILY@1200 12/10/17 12/10/17 History Hydrocortisone [Cortef] 20 mg PO DAILY 12/10/17 12/10/17 History Levothyroxine Sodium [Synthroid] 175 mcg PO DAILY 12/10/17 12/10/17 History Losartan Potassium [Cozaar] 25 mg PO DAILY 12/10/17 12/10/17 History Ondansetron [Zofran] 4 mg PO Q6H PRN 12/10/17 12/10/17 History Spironolactone [Aldactone] 12.5 mg PO DAILY 12/10/17 12/10/17 History Tamsulosin [Flomax] 0.4 mg PO DAILY 12/10/17 12/10/17 History levETIRAcetam [Keppra] 500 mg PO Q12HR 12/10/17 12/10/17 History Allergies Allergy/AdvReac Type Severity Reaction Status Date / Time Penicillins Allergy Unknown Verified 12/10/17 07:13 Childhood Physical Exam Vitals: Vital Signs Temp Pulse Pulse Resp BP BP Pulse Ox 12/10/17 09:03 97.6 F 64 16 95/59 97 12/10/17 08:16 97.8 F 66 18 100/54 96 12/10/17 07:32 73 18 104/57 100 12/10/17 06:10 97.9 F 63 18 112/74 100 12/10/17 04:35 60 18 115/68 99 12/10/17 03:43 60 18 119/63 98 12/10/17 03:11 63 18 99/56 99 12/10/17 02:45 75/50 12/10/17 02:41 97.9 F 60 18 103/57 99 Intake and Output 12/09/17 12/10/17 12/10/17 22:59 06:59 14:59 Other: Voiding Method Indwelling Catheter Weight 78.925 kg GENERAL: no apparent distress at bedside HEENT: Head is atraumatic, normocephalic. Pupils are equal, round, and reactive to light. Sclerae anicteric. Conjunctivae are clear. Mucus membranes of the mouth are moist. Neck is supple. RESPIRATORY: Clear to ausculation. No wheezes, rales, or rhonchi. No use of accessory muscles. P CARDIOVASCULAR: Regular rate and rhythm. S1 and S2 noted. . ABDOMEN: ND/NT Abdomen soft. Normal active bowel sounds auscultated x 4 quadrants. catheter yellow urine. SKIN: No jaundice. No rashes noted. No cellulitis noted. EXTREMITIES: 2+ peripheral pulses. No evidence of peripheral edema. NEUROLOGIC: No focal Defects PSYCHIATRIC: Lethargic. answering questions appropriately Oriented X 3. Results CBC & Chem 7: 12/10/17 11:21 12/10/17 11:21 Labs: Abnormal Lab Results - Last 24 Hours (Table) 12/10/17 12/10/17 12/10/17 Range/Units 02:38 02:38 02:38 RBC 3.78 L (4.30-5.90) m/uL Hgb 11.7 L (13.0-17.5) gm/dL Hct 35.5 L (39.0-53.0) % RDW 15.8 H (11.5-15.5) % Neutrophils # (1.3-7.7) k/uL PT (9.0-12.0) sec INR (<1.2) Sodium 126 L (137-145) mmol/L Chloride 94 L (98-107) mmol/L BUN 23 H (9-20) mg/dL Creatinine 0.60 L (0.66-1.25) mg/dL Calcium (8.4-10.2) mg/dL Total Creatine Kinase <20 L (55-170) U/L Total Protein 6.1 L (6.3-8.2) g/dL Albumin 3.3 L (3.5-5.0) g/dL Urine Protein (Negative) Urine Blood (Negative) Ur Leukocyte Esterase (Negative) Urine RBC (0-5) /hpf Urine WBC (0-5) /hpf Urine Bacteria (None) /hpf Urine Mucus (None) /hpf 12/10/17 12/10/17 12/10/17 Range/Units 02:38 03:16 11:21 RBC 3.35 L (4.30-5.90) m/uL Hgb 10.3 L (13.0-17.5) gm/dL Hct 31.9 L (39.0-53.0) % RDW 15.7 H (11.5-15.5) % Neutrophils # 8.4 H (1.3-7.7) k/uL PT 12.7 H (9.0-12.0) sec INR 1.4 H (<1.2) Sodium (137-145) mmol/L Chloride (98-107) mmol/L BUN (9-20) mg/dL Creatinine (0.66-1.25) mg/dL Calcium (8.4-10.2) mg/dL Total Creatine Kinase (55-170) U/L Total Protein (6.3-8.2) g/dL Albumin (3.5-5.0) g/dL Urine Protein 1+ H (Negative) Urine Blood Moderate H (Negative) Ur Leukocyte Esterase Moderate H (Negative) Urine RBC 68 H (0-5) /hpf Urine WBC 103 H (0-5) /hpf Urine Bacteria Occasional H (None) /hpf Urine Mucus Few H (None) /hpf 12/10/17 Range/Units 11:21 RBC (4.30-5.90) m/uL Hgb (13.0-17.5) gm/dL Hct (39.0-53.0) % RDW (11.5-15.5) % Neutrophils # (1.3-7.7) k/uL PT (9.0-12.0) sec INR (<1.2) Sodium 127 L (137-145) mmol/L Chloride 97 L (98-107) mmol/L BUN (9-20) mg/dL Creatinine 0.60 L (0.66-1.25) mg/dL Calcium 7.9 L (8.4-10.2) mg/dL Total Creatine Kinase (55-170) U/L Total Protein 5.3 L (6.3-8.2) g/dL Albumin 2.7 L (3.5-5.0) g/dL Urine Protein (Negative) Urine Blood (Negative) Ur Leukocyte Esterase (Negative) Urine RBC (0-5) /hpf Urine WBC (0-5) /hpf Urine Bacteria (None) /hpf Urine Mucus (None) /hpf Microbiology - Last 24 Hours (Table) 12/10/17 03:16 Urine Culture - Preliminary Urine,Voided Assessment and Plan Plan: Assessment and Recommendations: 1. Metastatic Melanoma - Adrenal Glands - Status Post 2 cycles of Opdivo Immunotherapy - Immunotherapy on Hold 2. Subdural Hematoma: - ?progressive disease Brain ?cerebellar, difficult assessment secondary to unable to evaluate with MRI secondary to pacemaker - I have discussed case in detail with Dr. Cha and will re-image with CT of Brain with Contrast to assess for progression - Decadron 4mg po q6 and PPI initiated for possible edema from brain involvement - Warfarin and Plavix have been on hold since admission to [facility], per cardiology but continue to hold - COntinue on Keppra 3. Chronic Illness Myopathy: - Previously refused Sub-acute Rehab, PT/OT while inpatient 4. Urinary Retention: - Indwelling Catheter, last Discharge patient required catheter to continue at home Case was also discussed with ENTRY ANALYST from Primary team. Physician Attestation: I have completed the full history and physical of this patient and agree with above dictation by Jessica Emmanuel NP, Dictated as a scribe.
--- NOTE | 2017-12-10 16:49 | CT ---
EXAMINATION TYPE: CT brain w con DATE OF EXAM: 12/10/2017 COMPARISON: Noncontrast exam earlier today HISTORY: 77-year-old male Reassess bleed cerebellum, assess for malignancy. CT DLP: 1135 mGycm Automated exposure control for dose reduction was used. Technique: CT scan of the head is performed with IV Contrast, patient injected with 100ml mL of Isov ue M300. Coronal/sagittal reconstructions performed. FINDINGS: Redemonstrated intracranial hemorrhage involving the lateral left cerebellar hemisphere. Surrounding vasogenic edema with mass effect partially effacing the fourth ventricle. Suspect some subdural hemor rhage thickening the leaves of the tentorium cerebelli and also extending along the left dorsolateral aspect of the foramen magnum. Given the intrinsic hyperdensity of the hemorrhagic material, is diffi cult to assess for any underlying enhancing lesions. Stable mild ventriculomegaly. Dural venous sinuses are patent. Moderate patchy white matter hypodensi ties especially in the periventricular regions suggest changes of chronic small vessel ischemic disea se. Moderate mucosal thickening left ethmoid air cells. Mastoid air cells are well pneumatized. IMPRESSION: Redemonstrated acute to subacute intracranial hemorrhage involving the left lateral cerebellar hemisp here. The degree of residual hyperdensity here makes assessment of an underlying enhancing mass diffi cult. Given the rounded appearance on axial image 16, underlying mass remains to be excluded. Similar mass effect with partial effacement of the fourth ventricle and some contiguous subdural hemo rrhage thickening the leaves of the tentorium cerebelli and extending along the left dorsolateral asp ect of the foramen magnum.
[2017-12-10 17:05] LABS: Glucose,Whole Blood 108 mg/dL (75-99)
[2017-12-10] MEDS ORDERED: metFORMIN 500 MG TAB PO SCH (17:30)
[2017-12-10 21:19] LABS: Glucose,Whole Blood 156 mg/dL (75-99)
[2017-12-10] MEDS: TAMSULOSIN 0.4 MG CAP.ER.24H PO SCH (21:22)
[2017-12-10] MEDS: OXYBUTYNIN CHLORIDE 5 MG TAB PO SCH (21:22)
[2017-12-10 22:29] LABS: Hemoglobin A1C 5.7 % (4.0-6.0)
[2017-12-11] MEDS ORDERED: LEVOFLOXACIN 750MG-D5W PMX 750 MG in DEXTROSE/WATER 1 150ML.BAG IVPB SCH (06:00)
[2017-12-11] MEDS: DEXAMETHASONE SOD PHOSPHATE 4 MG/ML 1 ML VIAL IV SCH ×3 (06:11→18:25)
[2017-12-11] MEDS: LEVOTHYROXINE 75 MCG TAB PO SCH (06:11)
[2017-12-11] MEDS: LEVOTHYROXINE 100 MCG TAB PO SCH (06:11)
[2017-12-11 07:16] LABS: Basophils % (A) 0 %; Eosinophils % (A) 0 %; HCT 29.7 % (39.0-53.0); Lymphocytes # (A) 0.6 k/uL (1.0-4.8); Lymphocytes % (A) 7 %; MCH 31.2 pg (25.0-35.0); MCHC 33.6 g/dL (31.0-37.0); MCV 93.1 fL (80.0-100.0); Mean Platelet Volume 6.6; Monocytes # (A) 0.2 k/uL (0-1.0); Monocytes % (A) 3 %; Neutrophils # (A) 7.3 k/uL (1.3-7.7); Neutrophils % (A) 90 %; Platelet Count 189 k/uL (150-450); RBC 3.19 m/uL (4.30-5.90); RDW 15.1 % (11.5-15.5); WBC 8.1 k/uL (3.8-10.6)
[2017-12-11 07:23] LABS: Glucose,Whole Blood 180 mg/dL (75-99)
[2017-12-11 07:30] LABS: ALT 33 U/L (21-72); AST 21 U/L (17-59); Albumin 2.5 g/dL (3.5-5.0); Alkaline Phosphatase 62 U/L (38-126); Anion Gap 9 mmol/L; Blood Urea Nitrogen 16 mg/dL (9-20); Calcium 8.4 mg/dL (8.4-10.2); Carbon Dioxide 21 mmol/L (22-30); Chloride 99 mmol/L (98-107); Glucose 153 mg/dL (74-99); Potassium 4.5 mmol/L (3.5-5.1); Sodium 129 mmol/L (137-145); Total Bilirubin 0.7 mg/dL (0.2-1.3); Total Protein 5.1 g/dL (6.3-8.2)
[2017-12-11] MEDS ORDERED: PANTOPRAZOLE 40 MG TABLET PO SCH (07:30)
[2017-12-11] MEDS: SODIUM CHLORIDE 0.9% 1,000 ML IV SCH ×3 (08:58→16:07)
[2017-12-11] MEDS: LOSARTAN 25 MG TAB PO SCH (08:59)
[2017-12-11] MEDS: SPIRONOLACTONE 25 MG TAB PO SCH (09:00)
[2017-12-11] MEDS: INSULIN ASPART 100 UNIT/ML 1 ML 10 ML VIAL SQ SCH ×4 (09:02→22:19)
[2017-12-11] MEDS: AMIODARONE 100 MG TAB PO SCH (09:03)
[2017-12-11] MEDS: levETIRAcetam 500 MG TAB PO SCH ×2 (09:03→22:20)
[2017-12-11] MEDS: DOCUSATE 100 MG CAP PO SCH ×2 (09:03→22:20)
[2017-12-11] MEDS: PANTOPRAZOLE 40 MG TABLET PO SCH ×2 (09:03→18:26)
[2017-12-11] MEDS: TAMSULOSIN 0.4 MG CAP.ER.24H PO SCH ×2 (09:04→22:22)
[2017-12-11 11:13] LABS: Glucose,Whole Blood 176 mg/dL (75-99)
--- NOTE | 2017-12-11 12:28 | P.PN ---
Subjective Progress Note Date: 12/11/17 77-year-old male who presented to the emergency room via EMS for increased weakness, nausea, and vomiting. The patients provided the majority of the HPI as patient is lethargic. The patient's states that yesterday he was walking to the bathroom and he was very weak and almost fell. She states his legs wanted to give out on him. She also reports that the patient started complaining of nausea yesterday afternoon and had multiple episodes of emesis. The patient denies shortness of breath. Denies cough or sputum production. Denies chest pain or pressure. Denies fever of chills. 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 He is currently undergoing treatment with Opdivo. He was recently admitted to [facility] for a subdural hemorrhage. He was discharged from [facility] on Thursday12/08/2017. Patients states he had a urinary catheter inserted while hospitalized at [facility]. She states on the day of discharge it was removed. However, the patient was unable to void on his own so the catheter was re-inserted and he was discharged home with an indwelling urinary catheter. The patient has a history of malignant melanoma that started on his right thigh in 2011. In September 2011 he underwent radical excision with inguinal node dissection. At that time the patient refused adjuvant therapy and elected for observation per oncology. The patient developed metastatic disease in the lumbar spine in April 2013 and received radiation. In June 2016 he was found to have bilateral adrenal masses and was started on immunotherapy with Opdivo in July 2016. The states his Opdivo has been held since that time and he was just restarted earlier this month. The patient a history of coronary artery disease with previous CABG. The patient was previously taking Coumadin, but the states she is unsure of the exact reason he was taking it. He has not taken his coumadin since December 03, 2017 when he was admitted to [facility]. According to previous documentation in EMR the patient has a history of paroxysmal atrial fibrillation, which his was unable to confirm. He also has a history of BPH, diabetes mellitus, COPD, and hypothyroidism. The patient underwent placement of an AICD in 2012. He is a former cigarette smoker and quit smoking in 1979. Chest x-ray: Negative for an acute cardiopulmonary disease. Laboratory data white count 9.8. Hemoglobin 11.7. Platelet count 249. INR 1.4. Sodium 126. Potassium 4.0. BUN 23. Creatinine 0.60. Glucose 90. Lactic acid 1.3. Magnesium 1.9. Troponin negative 1. Urinalysis reveals cloudy yellow urine, 1+ proteinuria, moderate blood, moderate leukocyte esterase, RBC 60, WBC 103, occasional bacteria, few mucus The patient received Levaquin 750 mg by mouth 1 dose and 2 L of normal saline in the emergency room. He was started on IV fluids at 125 mL an hour. The patient was admitted to the hospital under the care of Dr. Frye. Consultations were placed to oncology. 12/11/2017 Patient was reevaluated at the bedside on rounds with Dr. Frye. Patient mentation has significantly improved compared to yesterday. He is much more awake and talkative today. Patient underwent CT of the brain yesterday which revealed reduction in subdural hematoma from 3.8cm to 3.1cm. Coumadin and aspirin remain on hold. Radiation oncology is on consult. Sodium is improving. Up to 129 today. Vital signs remain stable. Patient denies chest pain or pressure. Denies nausea or vomiting. Objective - Vital Signs Vital signs: Vital Signs Temp 97.6 F 12/11/17 05:00 Pulse 60 12/11/17 05:00 Resp 16 12/11/17 05:00 BP 103/67 12/11/17 05:00 Pulse Ox 97 12/11/17 05:00 Intake & Output 12/10/17 12/11/17 12/11/17 18:59 06:59 18:59 Intake Total 1500 Output Total 700 1500 0 Balance -700 0 0 Weight 78.925 kg Intake: IV 1500 Sodium Chloride 0.9% 1, 1500 000 ml @ 125 mls/hr IV . Q8H [facility] Rx#:[id number] Output: Urine 700 1500 Uretheral (Day) 1500 Stool 0 0 0 Other: Voiding Method Indwelling Catheter Indwelling Catheter Indwelling Catheter - Exam GENERAL: This is a 77-year-old male in no apparent distress at the time of examination. Pleasant and cooperative. HEENT: Head is atraumatic, normocephalic. Pupils are equal, round, and reactive to light. Sclerae anicteric. Conjunctivae are clear. Mucus membranes of the mouth are moist. Neck is supple. RESPIRATORY: Clear to ausculation. No wheezes, rales, or rhonchi. No use of accessory muscles. Patient maintaining oxygen saturation greater than 92%. No chest wall tenderness is noted on palpation or with deep breathing. CARDIOVASCULAR: Regular rate and rhythm. S1 and S2 noted. No JVD noted. No S3 or S4 noted. GASTROINTESTINAL/: No distention noted. Abdomen soft. Normal active bowel sounds auscultated x 4 quadrants. No pain or tenderness noted upon palpation. Indwelling urinary catheter noted with yellow urine. INTEGUMENTARY: No cyanosis. No jaundice. No rashes noted. No cellulitis noted. EXTREMITIES: 2+ peripheral pulses. No evidence of peripheral edema. No calf tenderness noted. NEUROLOGIC: Cranial nerves II-XII intact. PSYCHIATRIC: Awake and alert. Oriented x 3. - Labs CBC & Chem 7: 12/11/17 06:40 12/11/17 06:40 Labs: Abnormal Lab Results - Last 24 Hours (Table) 12/10/17 12/10/17 12/11/17 Range/Units 17:03 21:18 06:40 RBC 3.19 L (4.30-5.90) m/uL Hgb 10.0 L (13.0-17.5) gm/dL Hct 29.7 L (39.0-53.0) % Lymphocytes # 0.6 L (1.0-4.8) k/uL Sodium (137-145) mmol/L Carbon Dioxide (22-30) mmol/L Creatinine (0.66-1.25) mg/dL Glucose (74-99) mg/dL POC Glucose (mg/dL) 108 H 156 H (75-99) mg/dL Total Protein (6.3-8.2) g/dL Albumin (3.5-5.0) g/dL 12/11/17 12/11/17 12/11/17 Range/Units 06:40 07:22 11:12 RBC (4.30-5.90) m/uL Hgb (13.0-17.5) gm/dL Hct (39.0-53.0) % Lymphocytes # (1.0-4.8) k/uL Sodium 129 L (137-145) mmol/L Carbon Dioxide 21 L (22-30) mmol/L Creatinine 0.62 L (0.66-1.25) mg/dL Glucose 153 H (74-99) mg/dL POC Glucose (mg/dL) 180 H 176 H (75-99) mg/dL Total Protein 5.1 L (6.3-8.2) g/dL Albumin 2.5 L (3.5-5.0) g/dL Microbiology - Last 24 Hours (Table) 12/10/17 05:45 Blood Culture - Preliminary Blood No Growth after 24 hours 12/10/17 03:16 Urine Culture - Preliminary Urine,Voided Assessment and Plan Plan: ASSESSMENT: Urinary tract infection, present on admission, suspect secondary to indwelling urinary catheter Hypovolemic hyponatremia Recent hospitalization at [facility] for subdural hematoma of posterior fossa and cerebellar parenchymal hemmorhage, possible metastasis History of malignant melanoma with metastasis History of bilateral adrenal masses with adrenal insufficiency, maintained on daily steroids History of paroxysmal atrial fibrillation per EMR records History of AICD placement, 2012 Benign prostatic hyperplasia Urinary retention, s/p indwelling urinary catheter inserted 12/08/2017 at [facility] COPD, no evidence of acute exacerbation Diabetes mellitus, type II Hypothyroidism History of CABG History of nicotine dependence, patient quit smoking in 1979 Anemia secondary to malignancy PLAN: Oncology on consult. Appreciate recommendations and input Metformin on hold due to CT scan yesterday. Will restart Metformin Thursday at 1730 Levaquin 750mg IV Q24 hours Await results of urine culture Continue IV fluids. Will decrease to 80cc/hr. Continue indwelling urinary catheter Possible voiding trial this weekend. Continue Flomax 0.4mg BID Patients states patient no longer takes Losartan. Will DC. Blood pressure has been stable. Continue to hold Coumadin and aspirin at this time per Dr. Frye [facility] as appropriate Monitor labs PT/OT GI prophylaxis: Protonix 40 mg PO Daily DVT prophylaxis: SCDs to bilateral LE Monitor vital signs and address as appropriate Discharge planning: Patient to return home at time of discharge pending patients condition. If unable to return home, patient is requesting [facility] at [facility] Further recommendations pending patient's course Records from [facility] have been obtained and reviewed. Copy placed in patients chart. Nurse practitioner note has been reviewed by physician. Signing provider agrees with the documented findings, assessment, and plan of care.
[2017-12-11] MEDS: PSYLLIUM HUSK 100% 6 GM PACKET PO SCH (12:46)
[2017-12-11] MEDS: METOPROLOL SUCCINATE (ER) 100 MG TAB.ER.24H PO SCH (12:47)
[2017-12-11] MEDS: MULTIVITAMINS, THERA 1 EACH TAB PO SCH (12:54)
--- NOTE | 2017-12-11 13:52 | P.CONS ---
History of Present Illness - Reason for Consult Consult date: 12/10/17 Possible cerebellar mass Requesting physician: Win Pineda - Chief Complaint I have a headache - History of Present Illness Bennie is a pleasant 77 year old who I evaluated at [facility] last week as an inpatient for possible cerebellar mass obscured by intracranial hemmorhage. 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 and had a PET scan which was negative,then in September 2011,he had a re-excision with right inguinal nodes dissection.The final pathology report revealed an ulcerated 2.1mm thick melanoma,mitotic index of 5,2 /10 postive inguinal lymph nodes without extranodal extension. CT scan of lumbar spine on 04/29/2013 revealed metastatic disease and a soft tissue mass at L4,he received palliative radiation therapy which was completed on 05/27/2013 and his back pain significantly improved. C-KIT mutatuion was negative,BRAF V600E was positive. Repeat CT scan of chest/abdomen/pelvis on 07/12/2015 revealed new large bilateral adrenal masses suspicious for metastatic disease. He has been on and off opdivo since 07/2016. Unfortunately in late November he hit his head on a side table getting out of bed. He complained of severe headache and generalized weakness.He was on Coumadin for Afib. CT of the head and [facility] visualized a large subdural hemorrhage and a small bleed in the cerebellum with associated mass effect. This area was suspicious for a mass. Bennie was evaluated by Neurosurgery and no intervention was recommended. Bennie was discharged to the hospital, but did have difficulty ambulating. He was re-admitted to [facility]. Repeat CT visualized improvement in the subdural hemmorage. There is still question of a possible cerebellar lesion. Clinically Bennie is doing better. He contineus to be fatigued and mild headaches. He is generally deconditioned. He continues to converse with his at bedside. Review of Systems Constitutional: Reports daytime sleepiness, Reports lethargy, Reports malaise Eyes: bilateral blurred vision, bilateral pain Cardiovascular: Reports decreased exercise tolerance, Reports dyspnea on exertion Respiratory: Denies cough Gastrointestinal: Denies abdominal pain, Denies diarrhea, Denies nausea, Denies vomiting Past Medical History Past Medical History: Cancer, COPD, Diabetes Mellitus, GERD/Reflux, Hyperlipidemia, Prostate Disorder, Thyroid Disorder Additional Past Medical History / Comment(s): SEE DR ZIMMER'S H&P,INCREASED FATIGUE,EMPHYSEMA,BRONCHITIS, MALIGNANT MELANOMA METS TO SPINE REC 6 TX RADIATION-APR 2013 History of Any Multi-Drug Resistant Organisms: None Reported Past Surgical History: AICD, Coronary Bypass/CABG Additional Past Surgical History / Comment(s): CABG-"CLEANED PUMONARY ARTERY", MELANOMA AND 10 LYMPHNODES REMOVED RT LEG,ORCHIECTOMY,REPAIR FINGER AMPUTATON Past Anesthesia/Blood Transfusion Reactions: No Reported Reaction Type of Cardiac Device: AICD Device Placement Date:: 2012 [facility] LT CHEST Past Psychological History: No Psychological Hx Reported Smoking Status: Former smoker Past Alcohol Use History: None Reported Past Drug Use History: None Reported - Past Family History Mother Family Medical History: Cancer Additional Family Medical History / Comment(s): cervical cancer Father Family Medical History: Myocardial Infarction ([place]) Son(s) Family Medical History: Myocardial Infarction ([place]) Additional Family Medical History / Comment(s): SONS X 2 Medications and Allergies Home Medications Medication Instructions Recorded Confirmed Type Aspirin 81 mg PO DAILY 10/09/14 12/10/17 History Oxybutynin Chloride [Ditropan] 5 mg PO HS 10/09/14 12/10/17 History Warfarin Sodium 5 mg PO DIRECTED 10/09/14 12/10/17 History Docusate [Colace] 100 mg PO BID 12/03/15 12/10/17 History Hydrocodone/Acetaminophen [[place] 1 tab PO QID PRN 03/04/17 12/10/17 History 5-325] Multivitamins, Thera [Multivitamin 1 tab PO DAILY 06/06/17 12/10/17 History (formulary)] metFORMIN HCL ER [Glucophage Xr] 500 mg PO W/SUPPER 06/06/17 12/10/17 History Metoprolol Succinate (ER) [Toprol 100 mg PO DAILY@119906/07/17 12/10/17 History XL] Amiodarone [Cordarone] 100 mg PO DAILY 12/10/17 12/10/17 History Hydrocortisone [Cortef] 10 mg PO DAILY@1200 12/10/17 12/10/17 History Hydrocortisone [Cortef] 20 mg PO DAILY 12/10/17 12/10/17 History Levothyroxine Sodium [Synthroid] 175 mcg PO DAILY 12/10/17 12/10/17 History Losartan Potassium [Cozaar] 25 mg PO DAILY 12/10/17 12/10/17 History Ondansetron [Zofran] 4 mg PO Q6H PRN 12/10/17 12/10/17 History Spironolactone [Aldactone] 12.5 mg PO DAILY 12/10/17 12/10/17 History Tamsulosin [Flomax] 0.4 mg PO DAILY 12/10/17 12/10/17 History levETIRAcetam [Keppra] 500 mg PO Q12HR 12/10/17 12/10/17 History Allergies Allergy/AdvReac Type Severity Reaction Status Date / Time Penicillins Allergy Unknown Verified 12/10/17 07:13 Childhood Physical Exam Vitals: Vital Signs Temp Pulse Resp BP Pulse Ox 12/11/17 05:00 97.6 F 60 16 103/67 97 12/10/17 20:50 98.6 F 63 17 102/61 98 12/10/17 18:53 77 17 12/10/17 17:08 97 12/10/17 17:00 98.2 F 77 17 102/65 98 12/10/17 13:47 98.1 F 72 18 109/66 100 Intake and Output 12/10/17 12/11/17 12/11/17 22:59 06:59 14:59 Intake Total 500 1000 Output Total 0 1500 0 Balance 500 -500 0 Intake: IV 500 1000 Sodium Chloride 0.9% 1, 500 1000 000 ml @ 125 mls/hr IV . Q8H [facility] Rx#:[id number] Output: Urine 1500 Uretheral (Day) 1500 Stool 0 0 Other: Voiding Method Indwelling Catheter Indwelling Catheter - Constitutional General appearance: thin - EENT Eyes: EOMI, PERRLA - Neck Neck: normal ROM - Respiratory Respiratory: bilateral: CTA - Cardiovascular Rhythm: regular - Neurologic Neurologic: CNII-XII intact - Musculoskeletal Musculoskeletal: generalized weakness - Psychiatric Psychiatric: A&O x's 3, appropriate affect Results CBC & Chem 7: 12/11/17 06:40 12/11/17 06:40 Labs: Abnormal Lab Results - Last 24 Hours (Table) 12/10/17 12/10/17 12/11/17 Range/Units 17:03 21:18 06:40 RBC 3.19 L (4.30-5.90) m/uL Hgb 10.0 L (13.0-17.5) gm/dL Hct 29.7 L (39.0-53.0) % Lymphocytes # 0.6 L (1.0-4.8) k/uL Sodium (137-145) mmol/L Carbon Dioxide (22-30) mmol/L Creatinine (0.66-1.25) mg/dL Glucose (74-99) mg/dL POC Glucose (mg/dL) 108 H 156 H (75-99) mg/dL Total Protein (6.3-8.2) g/dL Albumin (3.5-5.0) g/dL 12/11/17 12/11/17 12/11/17 Range/Units 06:40 07:22 11:12 RBC (4.30-5.90) m/uL Hgb (13.0-17.5) gm/dL Hct (39.0-53.0) % Lymphocytes # (1.0-4.8) k/uL Sodium 129 L (137-145) mmol/L Carbon Dioxide 21 L (22-30) mmol/L Creatinine 0.62 L (0.66-1.25) mg/dL Glucose 153 H (74-99) mg/dL POC Glucose (mg/dL) 180 H 176 H (75-99) mg/dL Total Protein 5.1 L (6.3-8.2) g/dL Albumin 2.5 L (3.5-5.0) g/dL Microbiology - Last 24 Hours (Table) 12/10/17 05:45 Blood Culture - Preliminary Blood No Growth after 24 hours 12/10/17 03:16 Urine Culture - Preliminary Urine,Voided Assessment and Plan Assessment: Bennie Blake is a 77 year old with diagnosis of metastatic melanoma receiving immunotherapy under the care of Dr. Stevens. Unfortunatly recent fall identified a subdural hematoma with some question of a cerebellar metastasis obscured by blood products. Plan: 1. Metastatic Melanoma - Patient continues on immunotherapy - Possible brain metastasis- Pt cannot get MRI secondary to pacemaker. Will reimage with CT of the head in 2 weeks to evaluate cerebellar abnormality. Pt does have an appointment in our clinic as an outpt. 2. Subdural Hematoma - Pt evaluated by Neurosurgery while at [facility]. No surgical intervention necessary. - Blood thinners on hold. Benjamin Cha Radiation Oncology [phone]
[2017-12-11 16:52] LABS: Glucose,Whole Blood 203 mg/dL (75-99)
--- NOTE | 2017-12-11 18:41 | P.PN ---
Subjective Progress Note Date: 12/11/17 Principal diagnosis: Subdural hemorrhage No acute events overnight, Brain CT still with residual hemorrhagic appearance and difficult to differentiate underlying mass. continuing to treat with dexamethasone for potential edema mass effects. Radiation oncology is following. Objective - Vital Signs Vital signs: Vital Signs Temp 97.6 F 12/11/17 05:00 Pulse 60 12/11/17 05:00 Resp 16 12/11/17 05:00 BP 103/67 12/11/17 05:00 Pulse Ox 97 12/11/17 05:00 Intake & Output 12/10/17 12/11/17 12/11/17 18:59 06:59 18:59 Intake Total 1500 Output Total 700 1500 0 Balance -700 0 0 Weight 78.925 kg Intake: IV 1500 Sodium Chloride 0.9% 1, 1500 000 ml @ 125 mls/hr IV . Q8H [facility] Rx#:[id number] Output: Urine 700 1500 Uretheral (Day) 1500 Stool 0 0 0 Other: Voiding Method Indwelling Catheter Indwelling Catheter Indwelling Catheter - Exam GENERAL: no apparent distress at bedside HEENT: Head is atraumatic, normocephalic. Pupils are equal, round, and reactive to light. Sclerae anicteric. Conjunctivae are clear. Mucus membranes of the mouth are moist. Neck is supple. RESPIRATORY: Clear to ausculation. No wheezes, rales, or rhonchi. No use of accessory muscles. P CARDIOVASCULAR: Regular rate and rhythm. S1 and S2 noted. . ABDOMEN: ND/NT Abdomen soft. Normal active bowel sounds auscultated x 4 quadrants. catheter yellow urine. SKIN: No jaundice. No rashes noted. EXTREMITIES: 2+ peripheral pulses. No evidence of peripheral edema. NEUROLOGIC: No focal Defects PSYCHIATRIC: Lethargic. answering questions appropriately Oriented X 3. - Labs CBC & Chem 7: 12/11/17 06:40 12/11/17 06:40 Labs: Abnormal Lab Results - Last 24 Hours (Table) 12/10/17 12/10/17 12/11/17 Range/Units 17:03 21:18 06:40 RBC 3.19 L (4.30-5.90) m/uL Hgb 10.0 L (13.0-17.5) gm/dL Hct 29.7 L (39.0-53.0) % Lymphocytes # 0.6 L (1.0-4.8) k/uL Sodium (137-145) mmol/L Carbon Dioxide (22-30) mmol/L Creatinine (0.66-1.25) mg/dL Glucose (74-99) mg/dL POC Glucose (mg/dL) 108 H 156 H (75-99) mg/dL Total Protein (6.3-8.2) g/dL Albumin (3.5-5.0) g/dL 12/11/17 12/11/17 12/11/17 Range/Units 06:40 07:22 11:12 RBC (4.30-5.90) m/uL Hgb (13.0-17.5) gm/dL Hct (39.0-53.0) % Lymphocytes # (1.0-4.8) k/uL Sodium 129 L (137-145) mmol/L Carbon Dioxide 21 L (22-30) mmol/L Creatinine 0.62 L (0.66-1.25) mg/dL Glucose 153 H (74-99) mg/dL POC Glucose (mg/dL) 180 H 176 H (75-99) mg/dL Total Protein 5.1 L (6.3-8.2) g/dL Albumin 2.5 L (3.5-5.0) g/dL Microbiology - Last 24 Hours (Table) 12/10/17 05:45 Blood Culture - Preliminary Blood No Growth after 24 hours 12/10/17 03:16 Urine Culture - Preliminary Urine,Voided Assessment and Plan Plan: Assessment and Recommendations: 1. Metastatic Melanoma - Adrenal Glands - Status Post 2 cycles of Opdivo Immunotherapy - Immunotherapy on Hold 2. Subdural Hematoma: - ?progressive disease Brain ?cerebellar, difficult assessment secondary to unable to evaluate with MRI secondary to pacemaker - I have discussed case in detail with Dr. Cha and will re-image with CT of Brain with Contrast to assess for progression - Decadron 4mg po q6 and PPI initiated for possible edema from brain involvement - Warfarin and Plavix have been on hold since admission to [facility], per cardiology but continue to hold - COntinue on Keppra - Reviewed Repeat CT Brain, difficult to still occlude progressive disease to brain, continue on decadron. 3. Chronic Illness Myopathy: - Previously refused Sub-acute Rehab, PT/OT while inpatient 4. Urinary Retention: - Indwelling Catheter, last Discharge patient required catheter to continue at home Case was also discussed with [employer] from Primary team.
[2017-12-11 21:26] LABS: Glucose,Whole Blood 232 mg/dL (75-99)
[2017-12-11] MEDS: OXYBUTYNIN CHLORIDE 5 MG TAB PO SCH (22:22)
[2017-12-12] MEDS: SODIUM CHLORIDE 0.9% 1,000 ML IV SCH ×3 (00:53→21:12)
[2017-12-12] MEDS: DEXAMETHASONE SOD PHOSPHATE 4 MG/ML 1 ML VIAL IV SCH ×4 (00:54→17:45)
[2017-12-12] MEDS: LEVOTHYROXINE 75 MCG TAB PO SCH (06:14)
[2017-12-12] MEDS: LEVOTHYROXINE 100 MCG TAB PO SCH (06:14)
[2017-12-12] MEDS: HYDROcodone/APAP 5-325MG 1 EACH TAB PO PRN ×3 (06:20→18:24)
[2017-12-12 06:38] LABS: Glucose,Whole Blood 207 mg/dL (75-99)
[2017-12-12 07:18] LABS: Basophils % (A) 0 %; Eosinophils % (A) 0 %; HCT 27.1 % (39.0-53.0); Lymphocytes # (A) 0.5 k/uL (1.0-4.8); Lymphocytes % (A) 6 %; MCH 31.4 pg (25.0-35.0); MCHC 33.4 g/dL (31.0-37.0); MCV 94.1 fL (80.0-100.0); Mean Platelet Volume 6.6; Monocytes # (A) 0.2 k/uL (0-1.0); Monocytes % (A) 3 %; Neutrophils # (A) 8.4 k/uL (1.3-7.7); Neutrophils % (A) 92 %; Platelet Count 201 k/uL (150-450); RBC 2.88 m/uL (4.30-5.90); RDW 15.3 % (11.5-15.5); WBC 9.2 k/uL (3.8-10.6)
[2017-12-12 08:08] LABS: ALT 36 U/L (21-72); AST 21 U/L (17-59); Albumin 2.4 g/dL (3.5-5.0); Alkaline Phosphatase 56 U/L (38-126); Anion Gap 6 mmol/L; Blood Urea Nitrogen 18 mg/dL (9-20); Calcium 8.5 mg/dL (8.4-10.2); Carbon Dioxide 20 mmol/L (22-30); Chloride 102 mmol/L (98-107); Glucose 164 mg/dL (74-99); Potassium 4.3 mmol/L (3.5-5.1); Sodium 128 mmol/L (137-145); Total Bilirubin 0.5 mg/dL (0.2-1.3); Total Protein 4.9 g/dL (6.3-8.2)
[2017-12-12] MEDS: DOCUSATE 100 MG CAP PO SCH ×2 (08:34→21:13)
[2017-12-12] MEDS: TAMSULOSIN 0.4 MG CAP.ER.24H PO SCH ×2 (08:38→21:15)
[2017-12-12] MEDS: PANTOPRAZOLE 40 MG TABLET PO SCH ×2 (08:38→17:45)
[2017-12-12] MEDS: SPIRONOLACTONE 25 MG TAB PO SCH (08:38)
[2017-12-12] MEDS: levETIRAcetam 500 MG TAB PO SCH ×2 (08:38→21:14)
[2017-12-12] MEDS: AMIODARONE 100 MG TAB PO SCH (08:38)
[2017-12-12] MEDS: INSULIN ASPART 100 UNIT/ML 1 ML 10 ML VIAL SQ SCH ×4 (08:38→21:15)
[2017-12-12] MEDS: PSYLLIUM HUSK 100% 6 GM PACKET PO SCH (10:04)
[2017-12-12] MEDS: LEVOFLOXACIN 750 MG TAB PO SCH (10:04)
[2017-12-12 11:29] LABS: Glucose,Whole Blood 240 mg/dL (75-99)
[2017-12-12] MEDS: METOPROLOL SUCCINATE (ER) 100 MG TAB.ER.24H PO SCH (12:32)
[2017-12-12] MEDS: MULTIVITAMINS, THERA 1 EACH TAB PO SCH (12:32)
--- NOTE | 2017-12-12 16:39 | PN ---
PROGRESS NOTE DATE OF SERVICE: 12/12/2017 I am covering for Dr. Frye. This 77-year-old gentleman who was admitted with increased weakness, nausea, vomiting, was found to be lethargic as well. The patient is being closely monitored with multiple concerns. The patient had UTI present on admission. The patient also had hyponatremia. The patient also had a possible cerebellar parenchymal hemorrhage and subdural hematoma and as well as malignant melanoma with possible mets also. Multiple consultants following the patient closely. The patient is on broad-spectrum IV antibiotics. The urine culture showed E coli, which is sensitive to Levaquin. PAST MEDICAL HISTORY: Reviewed. REVIEW OF SYSTEMS: CARDIOVASCULAR SYSTEM: No angina. RESPIRATORY SYSTEM: As mentioned earlier. GI: As mentioned earlier. : No dysuria. NERVOUS SYSTEM: Generalized weakness. MEDICATIONS: Current medications are reviewed and include: 1. [place] 5 mg q.6. 2. Cordarone 100 mg daily. 3. Decadron 4 mg q.h.s. 4. Colace 100 mg b.i.d. 5. NovoLog. 6. Keppra 500 mg b.i.d. 7. Levaquin 750 daily. 8. Synthroid. 9. Glucophage. 10.Toprol XL 100 mg daily. 11.Narcan. 12.Zofran. 13.Ditropan. 14.Protonix. 15.Metamucil. 16.Aldactone. 17.Flomax. PHYSICAL EXAMINATION: Patient is alert, oriented x2. Pulse 65, blood pressure 123/67, respiration 18, temperature 97.6, pulse ox 94% on room air. HEENT: Conjunctivae normal. Oral mucosa moist. Neck is no jugular venous distention. No carotid bruit. No lymph node enlargement. CARDIOVASCULAR: S1 and S2 muffled. RESPIRATORY: Breath sounds diminished at the bases. A few scattered rhonchi. ABDOMEN: Soft, nontender. No mass palpable. LEGS: No edema. No swelling. NERVOUS SYSTEM: Diffusely weak and also had some minimal finger-nose incoordination. Gait is ataxic. SKIN: No ulcer, rash or bleeding. LABS: WBC 9.2, hemoglobin is 9. Sodium 128. ASSESSMENT: 1. Generalized weakness and tired with urinary tract infection with possible sepsis, present on admission. 2. Hyponatremia, possibly hypovolemic. 3. Anemia, multifactorial possibly secondary to malignancy. 4. History of recent hospitalization elsewhere subdural hematoma, positive for hemorrhage possible metastasis. 5. History of malignant melanoma with metastasis. 6. History of bilateral adrenal masses with adrenal insufficiency. 7. History of paroxysmal atrial fibrillation. 8. History of AICD. 9. Benign prostatic hypertrophy. 10.History of urinary retention. 11.Chronic obstructive pulmonary disease. 12.Diabetes mellitus type 2. 13.Hypothyroidism. 14.History of coronary artery disease, coronary artery bypass grafting. 15.History of nicotine dependence. 16.Anemia secondary to malignancy. 17.Gait dysfunction. 18.FULL CODE with instructions. RECOMMENDATIONS AND DISCUSSION: This 77-year-old gentleman who presented with multiple complex medical issues, will monitor the patient closely. Continue the current medications, continue symptomatic treatment. Continue the antibiotics. Continue the rest of medications. I would also recommend repeat labs and I would also recommend PT, OT evaluation and possible ECF rehab also. The overall prognosis guarded because of multiple complex medical issues. Further recommendations to follow. MMDEISIL / IJN: [id number] / LEI
--- NOTE | 2017-12-12 16:51 | P.PN ---
Subjective Progress Note Date: 12/12/17 Principal diagnosis: Subdural hemorrhage No acute events overnight, Brain CT still with residual hemorrhagic appearance and difficult to differentiate underlying mass. continuing to treat with dexamethasone for potential edema mass effects. Radiation oncology is following. Spoke to and patient at length today. He overall is feeling better, some residual left sided weakness otherwise no complaints Objective - Vital Signs Vital signs: Vital Signs Temp 97.8 F 12/12/17 13:00 Pulse 62 12/12/17 13:00 Resp 18 12/12/17 13:00 BP 116/67 12/12/17 13:00 Pulse Ox 96 12/12/17 13:00 Intake & Output 12/11/17 12/12/17 12/12/17 18:59 06:59 18:59 Intake Total 640 Output Total 0 2100 Balance 0 -2100 640 Weight 78.925 kg Intake: IV 640 Sodium Chloride 0.9% 1, 640 000 ml @ 80 mls/hr IV . [id number] [facility] Rx#:[id number] Output: Urine 2100 Uretheral (Day) 500 Stool 0 0 Other: Voiding Method Indwelling Catheter Indwelling Catheter Indwelling Catheter # Bowel Movements 1 1 - Exam GENERAL: no apparent distress at bedside HEENT: Head is atraumatic, normocephalic. Pupils are equal, round, and reactive to light. Sclerae anicteric. Conjunctivae are clear. Mucus membranes of the mouth are moist. Neck is supple. RESPIRATORY: Clear to ausculation. No wheezes, rales, or rhonchi. No use of accessory muscles. P CARDIOVASCULAR: Regular rate and rhythm. S1 and S2 noted. . ABDOMEN: ND/NT Abdomen soft. Normal active bowel sounds auscultated x 4 quadrants. catheter yellow urine. SKIN: No jaundice. No rashes noted. EXTREMITIES: 2+ peripheral pulses. No evidence of peripheral edema. NEUROLOGIC: No focal Defects PSYCHIATRIC: Lethargic. answering questions appropriately Oriented X 3. - Labs CBC & Chem 7: 12/12/17 06:32 12/12/17 06:32 Labs: Abnormal Lab Results - Last 24 Hours (Table) 12/11/17 12/11/17 12/12/17 Range/Units 16:50 21:24 06:32 RBC 2.88 L (4.30-5.90) m/uL Hgb 9.0 L (13.0-17.5) gm/dL Hct 27.1 L (39.0-53.0) % Neutrophils # 8.4 H (1.3-7.7) k/uL Lymphocytes # 0.5 L (1.0-4.8) k/uL Sodium (137-145) mmol/L Carbon Dioxide (22-30) mmol/L Creatinine (0.66-1.25) mg/dL Glucose (74-99) mg/dL POC Glucose (mg/dL) 203 H 232 H (75-99) mg/dL Total Protein (6.3-8.2) g/dL Albumin (3.5-5.0) g/dL 12/12/17 12/12/17 12/12/17 Range/Units 06:32 06:34 11:28 RBC (4.30-5.90) m/uL Hgb (13.0-17.5) gm/dL Hct (39.0-53.0) % Neutrophils # (1.3-7.7) k/uL Lymphocytes # (1.0-4.8) k/uL Sodium 128 L (137-145) mmol/L Carbon Dioxide 20 L (22-30) mmol/L Creatinine 0.58 L (0.66-1.25) mg/dL Glucose 164 H (74-99) mg/dL POC Glucose (mg/dL) 207 H 240 H (75-99) mg/dL Total Protein 4.9 L (6.3-8.2) g/dL Albumin 2.4 L (3.5-5.0) g/dL Microbiology - Last 24 Hours (Table) 12/10/17 03:16 Urine Culture - Final Urine,Voided Escherichia coli 12/10/17 05:45 Blood Culture - Preliminary Blood No Growth after 48 hours Assessment and Plan Plan: Assessment and Recommendations: 1. Metastatic Melanoma - Adrenal Glands - Status Post 2 cycles of Opdivo Immunotherapy - Immunotherapy on Hold 2. Subdural Hematoma: - ?progressive disease Brain ?cerebellar, difficult assessment secondary to unable to evaluate with MRI secondary to pacemaker - I have discussed case in detail with Dr. Cha and will re-image with CT of Brain with Contrast to assess for progression - Decadron 4mg po q6 and PPI initiated for possible edema from brain involvement - Warfarin and Plavix have been on hold since admission to [facility], per cardiology but continue to hol - COntinue on Keppra - Reviewed Repeat CT Brain, difficult to still occlude progressive disease to brain, continue on decadron. 3. Chronic Illness Myopathy: - Previously refused Sub-acute Rehab, PT/OT while inpatient 4. Urinary Retention: - Indwelling Catheter, last Discharge patient required catheter to continue at home Case was also discussed with HAND PATCHER from Primary team. Rec continuing to hold AC therapy until after repeat CT
[2017-12-12 17:34] LABS: Glucose,Whole Blood 171 mg/dL (75-99)
[2017-12-12] MEDS: metFORMIN 500 MG TAB PO SCH (17:45)
[2017-12-12 21:07] LABS: Glucose,Whole Blood 185 mg/dL (75-99)
[2017-12-12] MEDS: OXYBUTYNIN CHLORIDE 5 MG TAB PO SCH (21:14)
[2017-12-13] MEDS: DEXAMETHASONE SOD PHOSPHATE 4 MG/ML 1 ML VIAL IV SCH ×4 (00:10→17:45)
[2017-12-13] MEDS: HYDROcodone/APAP 5-325MG 1 EACH TAB PO PRN ×3 (00:14→13:02)
[2017-12-13] MEDS: SODIUM CHLORIDE 0.9% 1,000 ML IV SCH ×2 (00:15→12:25)
[2017-12-13] MEDS: LEVOTHYROXINE 100 MCG TAB PO SCH (06:15)
[2017-12-13] MEDS: LEVOTHYROXINE 75 MCG TAB PO SCH (06:19)
[2017-12-13 07:13] LABS: Glucose,Whole Blood 164 mg/dL (75-99)
[2017-12-13 07:30] LABS: Basophils % (A) 0 %; Eosinophils % (A) 0 %; HCT 27.5 % (39.0-53.0); HGB 9.2 gm/dL (13.0-17.5); Lymphocytes # (A) 0.6 k/uL (1.0-4.8); Lymphocytes % (A) 7 %; MCH 31.3 pg (25.0-35.0); MCHC 33.4 g/dL (31.0-37.0); MCV 93.7 fL (80.0-100.0); Mean Platelet Volume 6.2; Monocytes # (A) 0.3 k/uL (0-1.0); Monocytes % (A) 4 %; Neutrophils # (A) 8.1 k/uL (1.3-7.7); Neutrophils % (A) 89 %; Platelet Count 201 k/uL (150-450); RBC 2.94 m/uL (4.30-5.90); RDW 15.2 % (11.5-15.5); WBC 9.1 k/uL (3.8-10.6)
[2017-12-13 07:42] LABS: ALT 39 U/L (21-72); AST 24 U/L (17-59); Albumin 2.4 g/dL (3.5-5.0); Alkaline Phosphatase 50 U/L (38-126); Anion Gap 8 mmol/L; Blood Urea Nitrogen 18 mg/dL (9-20); Calcium 8.6 mg/dL (8.4-10.2); Carbon Dioxide 18 mmol/L (22-30); Chloride 100 mmol/L (98-107); Glucose 148 mg/dL (74-99); Potassium 4.6 mmol/L (3.5-5.1); Sodium 126 mmol/L (137-145); Total Bilirubin 0.4 mg/dL (0.2-1.3)
[2017-12-13] MEDS: SPIRONOLACTONE 25 MG TAB PO SCH (07:46)
[2017-12-13] MEDS: PANTOPRAZOLE 40 MG TABLET PO SCH ×2 (07:47→17:44)
[2017-12-13] MEDS: levETIRAcetam 500 MG TAB PO SCH ×2 (07:47→20:05)
[2017-12-13] MEDS: TAMSULOSIN 0.4 MG CAP.ER.24H PO SCH ×2 (07:48→20:05)
[2017-12-13] MEDS: LEVOFLOXACIN 750 MG TAB PO SCH (07:48)
[2017-12-13] MEDS: AMIODARONE 100 MG TAB PO SCH (07:48)
[2017-12-13] MEDS: DOCUSATE 100 MG CAP PO SCH ×2 (07:48→20:04)
[2017-12-13] MEDS: metFORMIN 500 MG TAB PO SCH ×2 (07:48→17:44)
[2017-12-13] MEDS: INSULIN ASPART 100 UNIT/ML 1 ML 10 ML VIAL SQ SCH ×4 (07:48→20:04)
[2017-12-13] MEDS: PSYLLIUM HUSK 100% 6 GM PACKET PO SCH (07:49)
[2017-12-13 11:40] LABS: Glucose,Whole Blood 161 mg/dL (75-99)
[2017-12-13] MEDS: MULTIVITAMINS, THERA 1 EACH TAB PO SCH (12:20)
[2017-12-13] MEDS: METOPROLOL SUCCINATE (ER) 100 MG TAB.ER.24H PO SCH ×2 (12:20→12:28)
--- NOTE | 2017-12-13 17:10 | PN ---
PROGRESS NOTE DATE OF SERVICE: 12/13/2017 I am covering for Dr. Frye. HISTORY OF PRESENT ILLNESS: This 77-year-old gentleman who was admitted with significant complaints also had possibly METS and as well as a subdural hematoma. Also patient complains of tiredness and weakness. No chest pain. No palpitations. No fever. PHYSICAL EXAM: Alert and oriented x3. Pulse 60, blood pressure 130/60, respirations 16, temperature 97.8, pulse ox 96% on room air. HEENT: Conjunctivae normal. Oral mucosa moist. Neck is no jugular venous distention. No carotid bruit. No lymph node enlargement. CARDIOVASCULAR: S1, S2. RESPIRATORY: Breath sounds diminished in the bases. No rhonchi, no crackles. ABDOMEN: Soft, nontender. LEGS: No edema. NERVOUS SYSTEM: Diffusely weak. LABS: WBC 9.1, hemoglobin is 9.2, sodium is 126. ASSESSMENT: 1. Generalized weakness and tiredness with urinary tract infection with possible sepsis, present on admission. 2. Hyponatremia, possibly hypovolemic. 3. Anemia multifactorial possibly secondary to malignancy. 4. History of recent hospitalization elsewhere with subdural hematoma, possible hemorrhage and possible metastasis. 5. History of malignant melanoma with metastasis. 6. History of bilateral adrenal mass with venous insufficiency. 7. History of paroxysmal atrial fibrillation. 8. History of AICD. 9. Benign prostatic hypertrophy. 10.History of urinary retention. 11.Chronic obstructive pulmonary disease. 12.Diabetes mellitus type 2. 13.Hypothyroidism. 14.History of coronary artery disease, CABG. 15.History of nicotine dependence. 16.Anemia secondary to malignancy. 17.Gait dysfunction. 18.FULL CODE with instructions. RECOMMENDATIONS AND DISCUSSION: I recommend to continue current management, monitoring and symptomatic treatment. Repeat labs. Otherwise PT, OT evaluation. Closely follow with multiple consultants. Further recommendations to follow. MMODL / IJN: [id number] /
[2017-12-13 17:40] LABS: Glucose,Whole Blood 168 mg/dL (75-99)
[2017-12-13 20:01] LABS: Glucose,Whole Blood 192 mg/dL (75-99)
[2017-12-13] MEDS: OXYBUTYNIN CHLORIDE 5 MG TAB PO SCH (20:05)
[2017-12-14] MEDS: DEXAMETHASONE SOD PHOSPHATE 4 MG/ML 1 ML VIAL IV SCH ×5 (00:11→23:32)
[2017-12-14] MEDS: SODIUM CHLORIDE 0.9% 1,000 ML IV SCH ×3 (00:11→23:32)
[2017-12-14] MEDS: LEVOTHYROXINE 100 MCG TAB PO SCH (06:06)
[2017-12-14] MEDS: LEVOTHYROXINE 75 MCG TAB PO SCH (06:06)
[2017-12-14 07:21] LABS: Glucose,Whole Blood 114 mg/dL (75-99)
[2017-12-14] MEDS: INSULIN ASPART 100 UNIT/ML 1 ML 10 ML VIAL SQ SCH ×4 (07:22→20:38)
[2017-12-14 07:50] LABS: ALT 38 U/L (21-72); AST 19 U/L (17-59); Albumin 2.5 g/dL (3.5-5.0); Alkaline Phosphatase 51 U/L (38-126); Anion Gap 8 mmol/L; Blood Urea Nitrogen 18 mg/dL (9-20); Carbon Dioxide 21 mmol/L (22-30); Chloride 98 mmol/L (98-107); Glucose 104 mg/dL (74-99); Potassium 4.3 mmol/L (3.5-5.1); Sodium 127 mmol/L (137-145); Total Bilirubin 0.5 mg/dL (0.2-1.3); Total Protein 5.1 g/dL (6.3-8.2)
[2017-12-14 08:07] LABS: Basophils % (A) 0 %; Eosinophils % (A) 0 %; HCT 28.8 % (39.0-53.0); HGB 9.6 gm/dL (13.0-17.5); Lymphocytes # (A) 0.8 k/uL (1.0-4.8); Lymphocytes % (A) 9 %; MCH 30.5 pg (25.0-35.0); MCHC 33.3 g/dL (31.0-37.0); MCV 91.4 fL (80.0-100.0); Mean Platelet Volume 6.9; Monocytes # (A) 0.5 k/uL (0-1.0); Monocytes % (A) 6 %; Neutrophils # (A) 7.5 k/uL (1.3-7.7); Neutrophils % (A) 84 %; Platelet Count 219 k/uL (150-450); RBC 3.15 m/uL (4.30-5.90); RDW 14.7 % (11.5-15.5); WBC 8.9 k/uL (3.8-10.6)
[2017-12-14] MEDS: TAMSULOSIN 0.4 MG CAP.ER.24H PO SCH ×2 (08:37→20:38)
[2017-12-14] MEDS: LEVOFLOXACIN 750 MG TAB PO SCH (08:37)
[2017-12-14] MEDS: SPIRONOLACTONE 25 MG TAB PO SCH (08:37)
[2017-12-14] MEDS: AMIODARONE 100 MG TAB PO SCH (08:37)
[2017-12-14] MEDS: PSYLLIUM HUSK 100% 6 GM PACKET PO SCH (08:37)
[2017-12-14] MEDS: metFORMIN 500 MG TAB PO SCH ×2 (08:38→17:41)
[2017-12-14] MEDS: DOCUSATE 100 MG CAP PO SCH ×2 (08:38→20:38)
[2017-12-14] MEDS: HYDROcodone/APAP 5-325MG 1 EACH TAB PO PRN ×4 (08:38→22:20)
[2017-12-14] MEDS: PANTOPRAZOLE 40 MG TABLET PO SCH ×2 (08:38→17:43)
[2017-12-14] MEDS: levETIRAcetam 500 MG TAB PO SCH ×2 (08:38→20:38)
[2017-12-14] MEDS ORDERED: MAGNESIUM HYDROXIDE 2,400 MG/10 ML CUP PO PRN (11:28)
[2017-12-14] MEDS ORDERED: SENNOSIDES 8.6 MG TAB PO PRN (11:29)
[2017-12-14 11:35] LABS: Glucose,Whole Blood 139 mg/dL (75-99)
[2017-12-14] MEDS: METOPROLOL SUCCINATE (ER) 100 MG TAB.ER.24H PO SCH (12:55)
[2017-12-14] MEDS: MULTIVITAMINS, THERA 1 EACH TAB PO SCH (12:55)
--- NOTE | 2017-12-14 15:56 | P.PN ---
Subjective Progress Note Date: 12/14/17 Principal diagnosis: Subdural hemorrhage No acute events or changes overnight. at bedside, patient is feeling stronger, appetite is good. He is sitting up in chair eating during interaction. Only complaint is [place] is only holding pain 3-4 hours, at home he takes one every 4 hours. He is moving his bowels well, no constipation Objective - Vital Signs Vital signs: Vital Signs Temp 98.1 F 12/14/17 05:00 Pulse 59 L 12/14/17 05:00 Resp 16 12/14/17 05:00 BP 144/67 12/14/17 05:00 Pulse Ox 97 12/14/17 05:00 Intake & Output 12/13/17 12/14/17 12/14/17 18:59 06:59 18:59 Intake Total 760 1680 Output Total 2825 3050 Balance -2065 -1370 Weight 78.925 kg Intake: IV 320 Sodium Chloride 0.9% 1, 320 000 ml @ 80 mls/hr IV . [id number] [facility] Rx#:[id number] Intake, IV Titration 640 640 Amount Sodium Chloride 0.9% 1, 640 640 000 ml @ 80 mls/hr IV . [id number] [facility] Rx#:[id number] Oral 120 720 Output: Urine 2825 3050 Stool 0 Other: Voiding Method Indwelling Catheter Indwelling Catheter - Exam GENERAL: no apparent distress at bedside HEENT: Head is atraumatic, normocephalic. Pupils are equal, round, and reactive to light. Sclerae anicteric. Conjunctivae are clear. Mucus membranes of the mouth are moist. Neck is supple. RESPIRATORY: Clear to ausculation. No wheezes, rales, or rhonchi. No use of accessory muscles. P CARDIOVASCULAR: Regular rate and rhythm. S1 and S2 noted. . ABDOMEN: ND/NT Abdomen soft. Normal active bowel sounds auscultated x 4 quadrants. catheter yellow urine. SKIN: No jaundice. No rashes noted. EXTREMITIES: 2+ peripheral pulses. No evidence of peripheral edema. NEUROLOGIC: No focal Defects PSYCHIATRIC: Lethargic. answering questions appropriately Oriented X 3. - Labs CBC & Chem 7: 12/14/17 06:26 12/14/17 06:26 Labs: Abnormal Lab Results - Last 24 Hours (Table) 12/13/17 12/13/17 12/13/17 Range/Units 11:39 17:36 20:00 RBC (4.30-5.90) m/uL Hgb (13.0-17.5) gm/dL Hct (39.0-53.0) % Lymphocytes # (1.0-4.8) k/uL Sodium (137-145) mmol/L Carbon Dioxide (22-30) mmol/L Creatinine (0.66-1.25) mg/dL Glucose (74-99) mg/dL POC Glucose (mg/dL) 161 H 168 H 192 H (75-99) mg/dL Total Protein (6.3-8.2) g/dL Albumin (3.5-5.0) g/dL 12/14/17 12/14/17 12/14/17 Range/Units 06:26 06:26 07:19 RBC 3.15 L (4.30-5.90) m/uL Hgb 9.6 L (13.0-17.5) gm/dL Hct 28.8 L (39.0-53.0) % Lymphocytes # 0.8 L (1.0-4.8) k/uL Sodium 127 L (137-145) mmol/L Carbon Dioxide 21 L (22-30) mmol/L Creatinine 0.58 L (0.66-1.25) mg/dL Glucose 104 H (74-99) mg/dL POC Glucose (mg/dL) 114 H (75-99) mg/dL Total Protein 5.1 L (6.3-8.2) g/dL Albumin 2.5 L (3.5-5.0) g/dL Microbiology - Last 24 Hours (Table) 12/10/17 05:45 Blood Culture - Preliminary Blood No Growth after 96 hours Assessment and Plan Plan: Assessment and Recommendations: 1. Metastatic Melanoma - Adrenal Glands - Status Post 2 cycles of Opdivo Immunotherapy - Immunotherapy on Hold 2. Subdural Hematoma: - ?progressive disease Brain ?cerebellar, difficult assessment secondary to unable to evaluate with MRI secondary to pacemaker - I have discussed case in detail with Dr. Cha and will re-image with CT of Brain with Contrast to assess for progression - Decadron 4mg po q6 and PPI initiated for possible edema from brain involvement - Warfarin and Plavix have been on hold since admission to [facility], per cardiology but continue to hol - COntinue on Keppra - Reviewed Repeat CT Brain, difficult to still occlude progressive disease to brain, continue on decadron. 3. Chronic Illness Myopathy: - Previously refused Sub-acute Rehab, PT/OT while inpatient 4. Urinary Retention: - Indwelling Catheter, last Discharge patient required catheter to continue at home 5. Malignant Pain - - [place] switched to every 4 hours per his home regimen, bowel protocol in place Rec continuing to hold AC therapy until after repeat CT in two weeks. If patient is discharge discharge on dexamethasone 4mg PO TID and PPI - Follow-up with Dr. Cha for repeat CT and Radiation oncology to wean dexamethasone at that time DISPO - Increase Strength and possible need for rehab for safety and stamina, defer to primary Physician Attestation: I have completed the full history and physical of this patient and agree with above dictation by Jessica Emmanuel NP. Dictated as a scribe.
[2017-12-14 17:13] LABS: Glucose,Whole Blood 141 mg/dL (75-99)
--- NOTE | 2017-12-14 18:35 | PN ---
PROGRESS NOTE DATE OF SERVICE: 12/14/2017 I am covering for Dr. Frye. HISTORY OF PRESENT ILLNESS: This 77-year-old gentleman admitted with generalized weakness also had UTI with possible sepsis present on admission. Patient also had cerebellar metastasis also. Multiple consultants are the patient closely. The patient is obtaining some strength at this time according to him. No chest pain. No palpitations. No shortness of breath. PHYSICAL EXAM: Alert and oriented x3. Pulse 59, blood pressure 144/67, respiration 16, temperature 98.1, pulse ox 97% on room air. HEENT: Conjunctivae normal. Oral mucosa moist. Neck is no jugular venous distention. No carotid bruit. No thyroid enlargement. Cardiovascular system: S1, S2 muffled. No S3, no S4. Respiratory: Breath sounds diminished in the bases. No rhonchi. No crackles. ABDOMEN: Soft, nontender. No mass palpable. Legs are no edema. No swelling. Central nervous system: No focal deficits. LABS: WBC 8.8, Hemoglobin 9.2, sodium 127, and albumin is 2.5. ASSESSMENT: 1. Generalized weakness and tiredness with urinary tract infection with possible sepsis present on admission. 2. Hyponatremia with possible hypovolemia. 3. Anemia multifactorial possibly secondary to malignancy. 4. History of recent hospitalization elsewhere with subdural hematoma, possible hemorrhage and secondary to metastasis possibly. 5. History of malignant melanoma with metastasis. 6. History of bilateral adrenal insufficiency. 7. History of paroxysmal atrial fibrillation. 8. History of AICD. 9. Benign prostatic hypertrophy. 10.Urinary retention. 11.Chronic obstructive pulmonary disease. 12.Diabetes mellitus type 2. 13.Hypothyroidism. 14.History of coronary artery disease, coronary artery bypass grafting. 15.History of nicotine dependence. 16.Anemia secondary to malignancy. 17.Gait dysfunction. 18.FULL CODE WITH INSTRUCTIONS. RECOMMENDATIONS AND DISCUSSION: Recommend to continue current medications, continue to monitor. Symptomatic treatment. Otherwise, at this time, I recommend continue with current medications. Continue symptomatic treatment. Continue with PT, OT evaluation. Otherwise possible ECF rehab. Dr. Frye will follow up tomorrow. MMODL / IJN: [id number] /
[2017-12-14 20:09] LABS: Glucose,Whole Blood 194 mg/dL (75-99)
[2017-12-14] MEDS: OXYBUTYNIN CHLORIDE 5 MG TAB PO SCH (20:38)
[2017-12-15] MEDS: DEXAMETHASONE SOD PHOSPHATE 4 MG/ML 1 ML VIAL IV SCH ×3 (06:15→23:22)
[2017-12-15] MEDS: LEVOTHYROXINE 100 MCG TAB PO SCH (06:15)
[2017-12-15] MEDS: LEVOTHYROXINE 75 MCG TAB PO SCH (06:18)
[2017-12-15 07:34] LABS: Glucose,Whole Blood 133 mg/dL (75-99)
[2017-12-15] MEDS: INSULIN ASPART 100 UNIT/ML 1 ML 10 ML VIAL SQ SCH ×4 (08:17→20:57)
[2017-12-15] MEDS: PANTOPRAZOLE 40 MG TABLET PO SCH ×2 (08:18→17:51)
[2017-12-15] MEDS: AMIODARONE 100 MG TAB PO SCH (08:19)
[2017-12-15] MEDS: DOCUSATE 100 MG CAP PO SCH ×2 (08:19→20:57)
[2017-12-15] MEDS: metFORMIN 500 MG TAB PO SCH ×2 (08:19→17:49)
[2017-12-15] MEDS: levETIRAcetam 500 MG TAB PO SCH ×2 (08:20→20:57)
[2017-12-15] MEDS: SPIRONOLACTONE 25 MG TAB PO SCH (08:20)
[2017-12-15] MEDS: HYDROcodone/APAP 5-325MG 1 EACH TAB PO PRN ×4 (08:21→23:20)
[2017-12-15] MEDS: TAMSULOSIN 0.4 MG CAP.ER.24H PO SCH ×2 (08:21→21:19)
[2017-12-15] MEDS: PSYLLIUM HUSK 100% 6 GM PACKET PO SCH (08:27)
[2017-12-15] MEDS: LEVOFLOXACIN 750 MG TAB PO SCH (09:37)
[2017-12-15 11:25] LABS: Glucose,Whole Blood 187 mg/dL (75-99)
[2017-12-15] MEDS: METOPROLOL SUCCINATE (ER) 100 MG TAB.ER.24H PO SCH (11:42)
[2017-12-15] MEDS: MULTIVITAMINS, THERA 1 EACH TAB PO SCH (11:42)
[2017-12-15] MEDS: SODIUM CHLORIDE 0.9% 1,000 ML IV SCH (11:42)
--- NOTE | 2017-12-15 14:31 | P.PN ---
Subjective Progress Note Date: 12/15/17 77-year-old male who presented to the emergency room via EMS for increased weakness, nausea, and vomiting. The patients provided the majority of the HPI as patient is lethargic. The patient's states that yesterday he was walking to the bathroom and he was very weak and almost fell. She states his legs wanted to give out on him. She also reports that the patient started complaining of nausea yesterday afternoon and had multiple episodes of emesis. The patient denies shortness of breath. Denies cough or sputum production. Denies chest pain or pressure. Denies fever of chills. 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 He is currently undergoing treatment with Opdivo. He was recently admitted to [facility] for a subdural hemorrhage. He was discharged from [facility] on Thursday12/08/2017. Patients states he had a urinary catheter inserted while hospitalized at [facility]. She states on the day of discharge it was removed. However, the patient was unable to void on his own so the catheter was re-inserted and he was discharged home with an indwelling urinary catheter. The patient has a history of malignant melanoma that started on his right thigh in 2011. In September 2011 he underwent radical excision with inguinal node dissection. At that time the patient refused adjuvant therapy and elected for observation per oncology. The patient developed metastatic disease in the lumbar spine in April 2013 and received radiation. In June 2016 he was found to have bilateral adrenal masses and was started on immunotherapy with Opdivo in July 2016. The states his Opdivo has been held since that time and he was just restarted earlier this month. The patient a history of coronary artery disease with previous CABG. The patient was previously taking Coumadin, but the states she is unsure of the exact reason he was taking it. He has not taken his coumadin since December 03, 2017 when he was admitted to [facility]. According to previous documentation in EMR the patient has a history of paroxysmal atrial fibrillation, which his was unable to confirm. He also has a history of BPH, diabetes mellitus, COPD, and hypothyroidism. The patient underwent placement of an AICD in 2012. He is a former cigarette smoker and quit smoking in 1979. Chest x-ray: Negative for an acute cardiopulmonary disease. Laboratory data white count 9.8. Hemoglobin 11.7. Platelet count 249. INR 1.4. Sodium 126. Potassium 4.0. BUN 23. Creatinine 0.60. Glucose 90. Lactic acid 1.3. Magnesium 1.9. Troponin negative 1. Urinalysis reveals cloudy yellow urine, 1+ proteinuria, moderate blood, moderate leukocyte esterase, RBC 60, WBC 103, occasional bacteria, few mucus The patient received Levaquin 750 mg by mouth 1 dose and 2 L of normal saline in the emergency room. He was started on IV fluids at 125 mL an hour. The patient was admitted to the hospital under the care of Dr. Frye. Consultations were placed to oncology. 12/11/2017 Patient was reevaluated at the bedside on rounds with Dr. Frye. Patient mentation has significantly improved compared to yesterday. He is much more awake and talkative today. Patient underwent CT of the brain yesterday which revealed reduction in subdural hematoma from 3.8cm to 3.1cm. Coumadin and aspirin remain on hold. Radiation oncology is on consult. Sodium is improving. Up to 129 today. Vital signs remain stable. Patient denies chest pain or pressure. Denies nausea or vomiting. 12/15/2017 Patient seen and examined at the bedside. Patient is awake and alert. Denies shortness of breath or chest pain. Denies nausea or vomiting. Denies fever or chills. Patient had rankin catheter discontinued but continued to have urinary retention and indwelling urinary catheter was reinserted. Patient remains on Decadron per oncology. Patient to have follow up CT completed in two weeks and then he is to follow up with Dr. Cha. Objective - Vital Signs Vital signs: Vital Signs Temp 97.8 F 12/15/17 06:17 Pulse 64 12/15/17 06:17 Resp 16 12/15/17 06:17 BP 125/67 12/15/17 06:17 Pulse Ox 99 12/15/17 06:17 Intake & Output 12/14/17 12/15/17 12/15/17 18:59 06:59 18:59 Intake Total 2320 840 Output Total 650 3000 Balance 1670 -2160 Weight 78.925 kg Intake: IV 640 Sodium Chloride 0.9% 1, 640 000 ml @ 80 mls/hr IV . [id number] [facility] Rx#:[id number] Intake, IV Titration 640 Amount Sodium Chloride 0.9% 1, 640 000 ml @ 80 mls/hr IV . [id number] [facility] Rx#:[id number] Oral 1680 200 Output: Urine 650 3000 Straight 1800 Uretheral (Rankin) 1200 Stool 0 Other: Voiding Method Indwelling Catheter Urinal Indwelling Catheter - Exam GENERAL: This is a 77-year-old male in no apparent distress at the time of examination. Pleasant and cooperative. HEENT: Head is atraumatic, normocephalic. Pupils are equal, round, and reactive to light. Sclerae anicteric. Conjunctivae are clear. Mucus membranes of the mouth are moist. Neck is supple. RESPIRATORY: Clear to ausculation. No wheezes, rales, or rhonchi. No use of accessory muscles. Patient maintaining oxygen saturation greater than 92%. No chest wall tenderness is noted on palpation or with deep breathing. CARDIOVASCULAR: Regular rate and rhythm. S1 and S2 noted. No JVD noted. No S3 or S4 noted. GASTROINTESTINAL/: No distention noted. Abdomen soft. Normal active bowel sounds auscultated x 4 quadrants. No pain or tenderness noted upon palpation. Indwelling urinary catheter noted with yellow urine. INTEGUMENTARY: No cyanosis. No jaundice. No rashes noted. No cellulitis noted. EXTREMITIES: 2+ peripheral pulses. No evidence of peripheral edema. No calf tenderness noted. NEUROLOGIC: Cranial nerves II-XII intact. PSYCHIATRIC: Awake and alert. Oriented x 3. - Labs CBC & Chem 7: 12/14/17 06:26 12/14/17 06:26 Labs: Abnormal Lab Results - Last 24 Hours (Table) 12/14/17 12/14/17 12/15/17 Range/Units 17:04 20:03 07:20 POC Glucose (mg/dL) 141 H 194 H 133 H (75-99) mg/dL 12/15/17 Range/Units 11:23 POC Glucose (mg/dL) 187 H (75-99) mg/dL Microbiology - Last 24 Hours (Table) 12/10/17 05:45 Blood Culture - Preliminary Blood No Growth after 120 hours Assessment and Plan Plan: ASSESSMENT: Urinary tract infection, present on admission, suspect secondary to indwelling urinary catheter, culture positive for ecoli Hypovolemic hyponatremia Recent hospitalization at [facility] for subdural hematoma of posterior fossa and cerebellar parenchymal hemmorhage, possible metastasis History of malignant melanoma with metastasis History of bilateral adrenal masses with adrenal insufficiency, maintained on daily steroids History of paroxysmal atrial fibrillation History of AICD placement, 2012 Benign prostatic hyperplasia Urinary retention, s/p indwelling urinary catheter inserted 12/08/2017 at [facility] COPD, no evidence of acute exacerbation Diabetes mellitus, type II Hypothyroidism History of CABG History of nicotine dependence, patient quit smoking in 1979 Anemia secondary to malignancy PLAN: Oncology on consult. Appreciate recommendations and input Continue decadron per oncology Patient to have report CT scan in two weeks and follow up with Dr. Cha Continue indwelling urinary catheter. Patient will be discharged with catheter. May need outpatient urology consult. Continue to hold Coumadin and aspirin at this time per Dr. Frye [place] meds as appropriate Monitor labs PT/OT GI prophylaxis: Protonix 40 mg PO Daily DVT prophylaxis: SCDs to bilateral LE Monitor vital signs and address as appropriate Discharge planning: Anticipate discharge to [facility] tomorrow if patient remains stable Further recommendations pending patient's course Nurse practitioner note has been reviewed by physician. Signing provider agrees with the documented findings, assessment, and plan of care.
--- NOTE | 2017-12-15 17:02 | P.PN ---
Subjective Progress Note Date: 12/15/17 Principal diagnosis: Subdural hemorrhage No acute events or changes overnight. at bedside, patient is feeling stronger, appetite is good. He is sitting up in chair eating during interaction. Only complaint is [place] is only holding pain 3-4 hours, at home he takes one every 4 hours. He is moving his bowels well, no constipation Today he is sitting inchair, needs to increase overall strength, plan is rehab. Objective - Vital Signs Vital signs: Vital Signs Temp 97.5 F L 12/15/17 14:57 Pulse 60 12/15/17 14:57 Resp 18 12/15/17 14:57 BP 105/58 12/15/17 14:57 Pulse Ox 98 12/15/17 14:57 Intake & Output 12/14/17 12/15/17 12/15/17 18:59 06:59 18:59 Intake Total 2320 840 120 Output Total 650 3000 1300 Balance 1670 -2160 -1180 Weight 78.925 kg Intake: IV 640 Sodium Chloride 0.9% 1, 640 000 ml @ 40 mls/hr IV . Q24H [facility] Rx#:[id number] Intake, IV Titration 640 Amount Sodium Chloride 0.9% 1, 640 000 ml @ 40 mls/hr IV . Q24H [facility] Rx#:[id number] Oral 1680 200 120 Output: Urine 650 3000 1300 Straight 1800 Uretheral (Day) 1200 Stool 0 Other: Voiding Method Indwelling Catheter Urinal Indwelling Catheter - Exam GENERAL: no apparent distress at bedside HEENT: Head is atraumatic, normocephalic. Pupils are equal, round, and reactive to light. Sclerae anicteric. Conjunctivae are clear. Mucus membranes of the mouth are moist. Neck is supple. RESPIRATORY: Clear to ausculation. No wheezes, rales, or rhonchi. No use of accessory muscles. P CARDIOVASCULAR: Regular rate and rhythm. S1 and S2 noted. . ABDOMEN: ND/NT Abdomen soft. Normal active bowel sounds auscultated x 4 quadrants. catheter yellow urine. SKIN: No jaundice. No rashes noted. EXTREMITIES: 2+ peripheral pulses. No evidence of peripheral edema. NEUROLOGIC: No focal Defects PSYCHIATRIC: Lethargic. answering questions appropriately Oriented X 3. - Labs CBC & Chem 7: 12/14/17 06:26 12/14/17 06:26 Labs: Abnormal Lab Results - Last 24 Hours (Table) 12/14/17 12/14/17 12/15/17 Range/Units 17:04 20:03 07:20 POC Glucose (mg/dL) 141 H 194 H 133 H (75-99) mg/dL 12/15/17 Range/Units 11:23 POC Glucose (mg/dL) 187 H (75-99) mg/dL Microbiology - Last 24 Hours (Table) 12/10/17 05:45 Blood Culture - Preliminary Blood No Growth after 120 hours Assessment and Plan Plan: Assessment and Recommendations: 1. Metastatic Melanoma - Adrenal Glands - Status Post 2 cycles of Opdivo Immunotherapy - Immunotherapy on Hold 2. Subdural Hematoma: - ?progressive disease Brain ?cerebellar, difficult assessment secondary to unable to evaluate with MRI secondary to pacemaker - I have discussed case in detail with Dr. Cha and will re-image with CT of Brain with Contrast to assess for progression - Decrease Decadron 4mg po q8 today, and continue PPI - edema from brain involvement - Warfarin and Plavix have been on hold since admission to [facility], per cardiology but continue to hol - COntinue on Keppra - Reviewed Repeat CT Brain, difficult to still occlude progressive disease to brain, continue on decadron. 3. Chronic Illness Myopathy: - Previously refused Sub-acute Rehab, PT/OT while inpatient 4. Urinary Retention: - Indwelling Catheter, last Discharge patient required catheter to continue at home 5. Malignant Pain - - [place] switched to every 4 hours per his home regimen, bowel protocol in place Rec continuing to hold AC therapy until after repeat CT in two weeks. If patient is discharge discharge on dexamethasone 4mg PO TID and PPI - Follow-up with Dr. Cha for repeat CT and Radiation oncology to wean dexamethasone at that time DISPO - Increase Strength and possible need for rehab for safety and stamina, defer to primary Case has been discussed in detail with radiation Oncology
[2017-12-15 17:08] LABS: Glucose,Whole Blood 136 mg/dL (75-99)
[2017-12-15 20:04] LABS: Glucose,Whole Blood 143 mg/dL (75-99)
[2017-12-15] MEDS: OXYBUTYNIN CHLORIDE 5 MG TAB PO SCH (20:58)
[2017-12-16 00:30] VITALS: RESP 16
[2017-12-16] MEDS: LEVOTHYROXINE 100 MCG TAB PO SCH (06:17)
[2017-12-16] MEDS: LEVOTHYROXINE 75 MCG TAB PO SCH (06:17)
[2017-12-16 07:10] LABS: Glucose,Whole Blood 120 mg/dL (75-99)
[2017-12-16] MEDS: INSULIN ASPART 100 UNIT/ML 1 ML 10 ML VIAL SQ SCH ×2 (07:48→12:38)
[2017-12-16] MEDS: PSYLLIUM HUSK 100% 6 GM PACKET PO SCH (07:50)
[2017-12-16] MEDS: DEXAMETHASONE SOD PHOSPHATE 4 MG/ML 1 ML VIAL IV SCH (07:51)
[2017-12-16] MEDS: DOCUSATE 100 MG CAP PO SCH (07:51)
[2017-12-16] MEDS: PANTOPRAZOLE 40 MG TABLET PO SCH (07:51)
[2017-12-16] MEDS: levETIRAcetam 500 MG TAB PO SCH (07:53)
[2017-12-16] MEDS: AMIODARONE 100 MG TAB PO SCH (07:53)
[2017-12-16] MEDS: metFORMIN 500 MG TAB PO SCH (07:56)
[2017-12-16] MEDS: LEVOFLOXACIN 750 MG TAB PO SCH (07:57)
[2017-12-16] MEDS: SPIRONOLACTONE 25 MG TAB PO SCH (07:57)
[2017-12-16] MEDS: TAMSULOSIN 0.4 MG CAP.ER.24H PO SCH (07:58)
[2017-12-16] MEDS: HYDROcodone/APAP 5-325MG 1 EACH TAB PO PRN ×2 (10:17→16:02)
[2017-12-16 11:20] LABS: Glucose,Whole Blood 147 mg/dL (75-99)
--- NOTE | 2017-12-16 11:44 | P.PN ---
Subjective Progress Note Date: 12/16/17 77-year-old male who presented to the emergency room via EMS for increased weakness, nausea, and vomiting. The patients provided the majority of the HPI as patient is lethargic. The patient's states that yesterday he was walking to the bathroom and he was very weak and almost fell. She states his legs wanted to give out on him. She also reports that the patient started complaining of nausea yesterday afternoon and had multiple episodes of emesis. The patient denies shortness of breath. Denies cough or sputum production. Denies chest pain or pressure. Denies fever of chills. 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 He is currently undergoing treatment with Opdivo. He was recently admitted to [facility] for a subdural hemorrhage. He was discharged from [facility] on Thursday12/08/2017. Patients states he had a urinary catheter inserted while hospitalized at [facility]. She states on the day of discharge it was removed. However, the patient was unable to void on his own so the catheter was re-inserted and he was discharged home with an indwelling urinary catheter. The patient has a history of malignant melanoma that started on his right thigh in 2011. In September 2011 he underwent radical excision with inguinal node dissection. At that time the patient refused adjuvant therapy and elected for observation per oncology. The patient developed metastatic disease in the lumbar spine in April 2013 and received radiation. In June 2016 he was found to have bilateral adrenal masses and was started on immunotherapy with Opdivo in July 2016. The states his Opdivo has been held since that time and he was just restarted earlier this month. The patient a history of coronary artery disease with previous CABG. The patient was previously taking Coumadin, but the states she is unsure of the exact reason he was taking it. He has not taken his coumadin since December 03, 2017 when he was admitted to [facility]. According to previous documentation in EMR the patient has a history of paroxysmal atrial fibrillation, which his was unable to confirm. He also has a history of BPH, diabetes mellitus, COPD, and hypothyroidism. The patient underwent placement of an AICD in 2012. He is a former cigarette smoker and quit smoking in 1979. Chest x-ray: Negative for an acute cardiopulmonary disease. Laboratory data white count 9.8. Hemoglobin 11.7. Platelet count 249. INR 1.4. Sodium 126. Potassium 4.0. BUN 23. Creatinine 0.60. Glucose 90. Lactic acid 1.3. Magnesium 1.9. Troponin negative 1. Urinalysis reveals cloudy yellow urine, 1+ proteinuria, moderate blood, moderate leukocyte esterase, RBC 60, WBC 103, occasional bacteria, few mucus The patient received Levaquin 750 mg by mouth 1 dose and 2 L of normal saline in the emergency room. He was started on IV fluids at 125 mL an hour. The patient was admitted to the hospital under the care of Dr. Frye. Consultations were placed to oncology. 12/11/2017 Patient was reevaluated at the bedside on rounds with Dr. Frye. Patient mentation has significantly improved compared to yesterday. He is much more awake and talkative today. Patient underwent CT of the brain yesterday which revealed reduction in subdural hematoma from 3.8cm to 3.1cm. Coumadin and aspirin remain on hold. Radiation oncology is on consult. Sodium is improving. Up to 129 today. Vital signs remain stable. Patient denies chest pain or pressure. Denies nausea or vomiting. 12/15/2017 Patient seen and examined at the bedside. Patient is awake and alert. Denies shortness of breath or chest pain. Denies nausea or vomiting. Denies fever or chills. Patient had rankin catheter discontinued but continued to have urinary retention and indwelling urinary catheter was reinserted. Patient remains on Decadron per oncology. Patient to have follow up CT completed in two weeks and then he is to follow up with Dr. Cha. 12/16/2017 Patient seen and examined at the bedside. Patient is awake and alert. Denies nausea or vomiting. Denies fever or chills. Patient remains on Decadron per oncology. Indwelling urinary catheter is intact with yellow urine noted. Patient remains very weak and debilitated. Patient require subacute rehab at the time of discharge-awaiting insurance approval. Objective - Vital Signs Vital signs: Vital Signs Temp 96.7 F L 12/16/17 05:00 Pulse 60 12/16/17 05:00 Resp 16 12/16/17 05:00 BP 118/58 12/16/17 05:00 Pulse Ox 98 12/16/17 05:00 Intake & Output 12/15/17 12/16/17 12/16/17 18:59 06:59 18:59 Intake Total 240 710 Output Total 1300 1425 Balance -1060 -715 Weight 78.925 kg Intake: Oral 240 710 Output: Urine 1300 1425 Other: Voiding Method Indwelling Catheter Indwelling Catheter Indwelling Catheter - Exam GENERAL: This is a 77-year-old male in no apparent distress at the time of examination. Pleasant and cooperative. HEENT: Head is atraumatic, normocephalic. Pupils are equal, round, and reactive to light. Sclerae anicteric. Conjunctivae are clear. Mucus membranes of the mouth are moist. Neck is supple. RESPIRATORY: Clear to ausculation. No wheezes, rales, or rhonchi. No use of accessory muscles. Patient maintaining oxygen saturation greater than 92%. No chest wall tenderness is noted on palpation or with deep breathing. CARDIOVASCULAR: Regular rate and rhythm. S1 and S2 noted. No JVD noted. No S3 or S4 noted. GASTROINTESTINAL/: No distention noted. Abdomen soft. Normal active bowel sounds auscultated x 4 quadrants. No pain or tenderness noted upon palpation. Indwelling urinary catheter noted with yellow urine. INTEGUMENTARY: No cyanosis. No jaundice. No rashes noted. No cellulitis noted. EXTREMITIES: 2+ peripheral pulses. No evidence of peripheral edema. No calf tenderness noted. NEUROLOGIC: Cranial nerves II-XII intact. PSYCHIATRIC: Awake and alert. Oriented x 3. - Labs CBC & Chem 7: 12/14/17 06:26 12/14/17 06:26 Labs: Abnormal Lab Results - Last 24 Hours (Table) 12/15/17 12/15/17 12/16/17 Range/Units 17:06 20:02 07:08 POC Glucose (mg/dL) 136 H 143 H 120 H (75-99) mg/dL 12/16/17 Range/Units 11:19 POC Glucose (mg/dL) 147 H (75-99) mg/dL Microbiology - Last 24 Hours (Table) 12/10/17 05:45 Blood Culture - Final Blood No Growth after 144 hours Assessment and Plan Plan: ASSESSMENT: Urinary tract infection, present on admission, suspect secondary to indwelling urinary catheter, culture positive for ecoli Hypovolemic hyponatremia Recent hospitalization at [facility] for subdural hematoma of posterior fossa and cerebellar parenchymal hemmorhage, possible metastasis History of malignant melanoma with metastasis History of bilateral adrenal masses with adrenal insufficiency, maintained on daily steroids History of paroxysmal atrial fibrillation History of AICD placement, 2012 Benign prostatic hyperplasia Urinary retention, s/p indwelling urinary catheter inserted 12/08/2017 at [facility] COPD, no evidence of acute exacerbation Diabetes mellitus, type II Hypothyroidism History of CABG History of nicotine dependence, patient quit smoking in 1979 Anemia secondary to malignancy PLAN: Oncology on consult. Appreciate recommendations and input Continue decadron per oncology Patient to have report CT scan in two weeks and follow up with Dr. Cha Continue indwelling urinary catheter. Patient will be discharged with catheter. May need outpatient urology consult. Continue to hold Coumadin and aspirin at this time per Dr. Frye [facility] as appropriate Monitor labs PT/OT GI prophylaxis: Protonix 40 mg PO Daily DVT prophylaxis: SCDs to bilateral LE Monitor vital signs and address as appropriate Discharge planning: Anticipate discharge to [facility] pending insurance approval. All cancer treatments remain on hold and will not be restarted during [facility] Further recommendations pending patient's course Nurse practitioner note has been reviewed by physician. Signing provider agrees with the documented findings, assessment, and plan of care.
[2017-12-16 12:25] VITALS: BP 98/51; PULSE 61; TEMP 97.7
[2017-12-16] MEDS: MULTIVITAMINS, THERA 1 EACH TAB PO SCH (12:37)
[2017-12-16] MEDS: METOPROLOL SUCCINATE (ER) 100 MG TAB.ER.24H PO SCH (12:38)
--- NOTE | 2017-12-16 14:16 | P.PN ---
Subjective Progress Note Date: 12/16/17 Principal diagnosis: Subdural hemorrhage No acute events or changes overnight.decreased dex yesterday and today weaker and more symptomatic, leaning to one side. Pain medication will be increased 7.5 as well as he is not up and moving to improve performance because of pain per patient. Oral thrush also noted on exam to discharge with nystatin swish. Objective - Vital Signs Vital signs: Vital Signs Temp 97.7 F 12/16/17 12:24 Pulse 61 12/16/17 12:24 Resp 16 12/16/17 12:24 BP 98/51 12/16/17 12:24 Pulse Ox 98 12/16/17 12:24 Intake & Output 12/15/17 12/16/17 12/16/17 18:59 06:59 18:59 Intake Total 240 710 320 Output Total 1300 1425 Balance -1060 -715 320 Weight 78.925 kg Intake: IV 320 Sodium Chloride 0.9% 1, 320 000 ml @ 40 mls/hr IV . Q24H [facility] Rx#:[id number] Oral 240 710 Output: Urine 1300 1425 Other: Voiding Method Indwelling Catheter Indwelling Catheter Indwelling Catheter - Exam GENERAL: no apparent distress at bedside HEENT: Head is atraumatic, normocephalic. Pupils are equal, round, and reactive to light. Sclerae anicteric. Conjunctivae are clear. Mucus membranes of the mouth are moist. Neck is supple. +thrush RESPIRATORY: Clear to ausculation. No wheezes, rales, or rhonchi. No use of accessory muscles. P CARDIOVASCULAR: Regular rate and rhythm. S1 and S2 noted. . ABDOMEN: ND/NT Abdomen soft. Normal active bowel sounds auscultated x 4 quadrants. catheter yellow urine. SKIN: No jaundice. No rashes noted. EXTREMITIES: 2+ peripheral pulses. No evidence of peripheral edema. NEUROLOGIC: No focal Defects PSYCHIATRIC: Lethargic. answering questions appropriately Oriented X 3. - Labs CBC & Chem 7: 12/14/17 06:26 12/14/17 06:26 Labs: Abnormal Lab Results - Last 24 Hours (Table) 12/15/17 12/15/17 12/16/17 Range/Units 17:06 20:02 07:08 POC Glucose (mg/dL) 136 H 143 H 120 H (75-99) mg/dL 12/16/17 Range/Units 11:19 POC Glucose (mg/dL) 147 H (75-99) mg/dL Microbiology - Last 24 Hours (Table) 12/10/17 05:45 Blood Culture - Final Blood No Growth after 144 hours Assessment and Plan Plan: Assessment and Recommendations: 1. Metastatic Melanoma - Adrenal Glands - Status Post 2 cycles of Opdivo Immunotherapy - Immunotherapy on Hold 2. Subdural Hematoma: - ?progressive disease Brain ?cerebellar, difficult assessment secondary to unable to evaluate with MRI secondary to pacemaker - I have discussed case in detail with Dr. Cha and will re-image with CT of Brain with Contrast to assess for progression - Decrease Decadron 4mg po q8 today, and continue PPI - edema from brain involvement - Warfarin and Plavix have been on hold since admission to [facility], per cardiology but continue to hol - COntinue on Keppra - Reviewed Repeat CT Brain, difficult to still occlude progressive disease to brain, continue on decadron. 3. Chronic Illness Myopathy: - Previously refused Sub-acute Rehab, PT/OT while inpatient 4. Urinary Retention: - Indwelling Catheter, last Discharge patient required catheter to continue at home 5. Malignant Pain - - [place] switched to every 4 hours per his home regimen, bowel protocol in place Rec continuing to hold AC therapy until after repeat CT in two weeks. With increased weakness and symptoms will go back up to dexamethasone 4mg po q6, discussed with Bree DUFFY IM. Continue PPI, Add Nystatin at discharge and increase norco 7.5mg q4 hours at discharge please. DISPO - Increase Strength and possible need for rehab for safety and stamina, defer to primary Case has been discussed in detail with radiation Oncology
--- NOTE | 2017-12-16 14:27 | P.DS ---
Providers Date of admission: 12/10/17 07:35 Expected date of discharge: 12/16/17 Attending physician: Michael Frye Consults: 12/10/17 07:36 Consult Physician Routine Consulting Provider: Zohaib Stevens Consult Reason/Comments: your patient Do you want consulting provider notified?: Yes 12/10/17 12:17 Consult Physician Urgent Consulting Provider: Benjamin Cha Consult Reason/Comments: ? cerebellar Mass Do you want consulting provider notified?: Yes Primary care physician: Michael Frye [facility] Course: 77-year-old male who presented to the emergency room via EMS for increased weakness, nausea, and vomiting. The patients provided the majority of the HPI as patient is lethargic. The patient's states that yesterday he was walking to the bathroom and he was very weak and almost fell. She states his legs wanted to give out on him. She also reports that the patient started complaining of nausea yesterday afternoon and had multiple episodes of emesis. The patient denies shortness of breath. Denies cough or sputum production. Denies chest pain or pressure. Denies fever of chills. 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 He is currently undergoing treatment with Opdivo. He was recently admitted to [facility] for a subdural hemorrhage. He was discharged from [facility] on Thursday12/08/2017. Patients states he had a urinary catheter inserted while hospitalized at [facility]. She states on the day of discharge it was removed. However, the patient was unable to void on his own so the catheter was re-inserted and he was discharged home with an indwelling urinary catheter. The patient has a history of malignant melanoma that started on his right thigh in 2011. In September 2011 he underwent radical excision with inguinal node dissection. At that time the patient refused adjuvant therapy and elected for observation per oncology. The patient developed metastatic disease in the lumbar spine in April 2013 and received radiation. In June 2016 he was found to have bilateral adrenal masses and was started on immunotherapy with Opdivo in July 2016. The states his Opdivo has been held since that time and he was just restarted earlier this month. The patient a history of coronary artery disease with previous CABG. The patient was previously taking Coumadin, but the states she is unsure of the exact reason he was taking it. He has not taken his coumadin since December 03, 2017 when he was admitted to [facility]. According to previous documentation in EMR the patient has a history of paroxysmal atrial fibrillation, which his was unable to confirm. He also has a history of BPH, diabetes mellitus, COPD, and hypothyroidism. The patient underwent placement of an AICD in 2012. He is a former cigarette smoker and quit smoking in 1979. Chest x-ray: Negative for an acute cardiopulmonary disease. Laboratory data white count 9.8. Hemoglobin 11.7. Platelet count 249. INR 1.4. Sodium 126. Potassium 4.0. BUN 23. Creatinine 0.60. Glucose 90. Lactic acid 1.3. Magnesium 1.9. Troponin negative 1. Urinalysis reveals cloudy yellow urine, 1+ proteinuria, moderate blood, moderate leukocyte esterase, RBC 60, WBC 103, occasional bacteria, few mucus The patient received Levaquin 750 mg by mouth 1 dose and 2 L of normal saline in the emergency room. He was started on IV fluids at 125 mL an hour. The patient was admitted to the hospital under the care of Dr. Frye. Consultations were placed to oncology. Patient underwent CT of the brain 12/10/2017 which revealed reduction in subdural hematoma from 3.8cm to 3.1cm. Coumadin and aspirin remain on hold. He was evaluated by oncology and started on protonix 40mg BID and Decadron 4mg TID. He was also evaluated by radiation oncology, Dr. Cha. Patient is to follow up with him in two weeks for repeat CT of brain. Patient did have a voiding trial during hospitalization. His flomax has been increased to BID. He was unable to void and continued to have urinary retention. He required straight cath and ultimately indwelling urinary catheter was reinserted. The [facility] as he remains weak and debilitated. He is to follow up with Dr. Cha in two weeks for CT of the brain. He is to continue on Protonix and Decadron at the time of discharge. Patient's Cortef has been on hold while receiving Decadron. He may resume this medication after his Decadron is weaned off. Oncology now recommends discharging patient on Decadron 4mg Q6 hours. Per Dr Frye, the patient is to continue to hold his Coumadin and aspirin. The patient will be discharged with indwelling urinary catheter. A voiding trial should take place in one week. If patient continues to have urinary retention, the patient will require outpatient urology evaluation. DISCHARGE DIAGNOSIS: Urinary tract infection, present on admission, suspect secondary to indwelling urinary catheter, culture positive for ecoli Hyponatremia Recent hospitalization at [facility] for subdural hematoma of posterior fossa and cerebellar parenchymal hemmorhage, possible metastasis History of malignant melanoma with metastasis History of bilateral adrenal masses with adrenal insufficiency, maintained on daily steroids History of paroxysmal atrial fibrillation History of AICD placement, 2012 Benign prostatic hyperplasia Urinary retention, s/p indwelling urinary catheter inserted 12/08/2017 at [facility], since DC and new catheter reinserted after patient failed voiding trial COPD, no evidence of acute exacerbation Diabetes mellitus, type II Hypothyroidism History of CABG History of nicotine dependence, patient quit smoking in 1979 Anemia secondary to malignancy Nurse practitioner note has been reviewed by physician. Signing provider agrees with the documented findings, assessment, and plan of care. Patient Condition at Discharge: Stable Plan - Discharge Summary Discharge Rx Participant: No New Discharge Prescriptions: New Levofloxacin [Levaquin] 750 mg PO DAILY #7 tab Pantoprazole [Protonix] 40 mg PO AC-BID #60 Psyllium Husk 100% [Metamucil Packet] 6 gm PO DAILY packet Tamsulosin [Flomax] 0.4 mg PO BID cap.er.24h Dexamethasone [Decadron] 4 mg PO Q6H #60 tablet HYDROcodone/APAP 7.5-325MG [[place] 7.5-325] 1 tab PO Q4H PRN 3 Days #18 tab PRN Reason: Pain Nystatin 100,000 Unit/ml Susp [Mycostatin Oral Susp] 5 ml PO QID #120 ml Continue Oxybutynin Chloride [Ditropan] 5 mg PO HS Docusate [Colace] 100 mg PO BID metFORMIN HCL ER [Glucophage Xr] 500 mg PO W/SUPPER Multivitamins, Thera [Multivitamin (formulary)] 1 tab PO DAILY Metoprolol Succinate (ER) [Toprol XL] 100 mg PO DAILY@1200 levETIRAcetam [Keppra] 500 mg PO Q12HR Ondansetron [Zofran] 4 mg PO Q6H PRN PRN Reason: Nausea Spironolactone [Aldactone] 12.5 mg PO DAILY Amiodarone [Cordarone] 100 mg PO DAILY Losartan Potassium [Cozaar] 25 mg PO DAILY Levothyroxine Sodium [Synthroid] 175 mcg PO DAILY Discontinued Aspirin 81 mg PO DAILY Warfarin Sodium 5 mg PO DIRECTED Hydrocodone/Acetaminophen [[place]eca 5-325] 1 tab PO QID PRN PRN Reason: Pain Tamsulosin [Flomax] 0.4 mg PO DAILY Hydrocortisone [Cortef] 20 mg PO DAILY Hydrocortisone [Cortef] 10 mg PO DAILY@1200 Discharge Medication List Oxybutynin Chloride [Ditropan] 5 mg PO HS 10/09/14 [History] Docusate [Colace] 100 mg PO BID 12/03/15 [History] Multivitamins, Thera [Multivitamin (formulary)] 1 tab PO DAILY 06/06/17 [History ] metFORMIN HCL ER [Glucophage Xr] 500 mg PO W/SUPPER 06/06/17 [History] Metoprolol Succinate (ER) [Toprol XL] 100 mg PO DAILY@1200 06/07/17 [History] Amiodarone [Cordarone] 100 mg PO DAILY 12/10/17 [History] Levothyroxine Sodium [Synthroid] 175 mcg PO DAILY 12/10/17 [History] Losartan Potassium [Cozaar] 25 mg PO DAILY 12/10/17 [History] Ondansetron [Zofran] 4 mg PO Q6H PRN 12/10/17 [History] Spironolactone [Aldactone] 12.5 mg PO DAILY 12/10/17 [History] levETIRAcetam [Keppra] 500 mg PO Q12HR 12/10/17 [History] Dexamethasone [Decadron] 4 mg PO Q6H #60 tablet 12/16/17 [Rx] HYDROcodone/APAP 7.5-325MG [[place] 7.5-325] 1 tab PO Q4H PRN 3 Days #18 tab 12/16 [Rx] Levofloxacin [Levaquin] 750 mg PO DAILY #7 tab 12/16/17 [Rx] Nystatin 100,000 Unit/ml Susp [Mycostatin Oral Susp] 5 ml PO QID #120 ml [Rx] Pantoprazole [Protonix] 40 mg PO AC-BID #60 12/16/17 [Rx] Psyllium Husk 100% [Metamucil Packet] 6 gm PO DAILY packet 12/16/17 [Rx] Tamsulosin [Flomax] 0.4 mg PO BID cap.er.24h 12/16/17 [Rx] Follow up Appointment(s)/Referral(s): Michael Frye DO [Primary Care Provider] - 12/22/17 1:40 pm Benjamin Cha MD [STAFF PHYSICIAN] - 12/29/17 10:30 am () Zohaib Stevens MD [STAFF PHYSICIAN] - 01/04/18 5:00 pm Activity/Diet/Wound Care/Special Instructions: Heart Healthy Diet Activity as tolerated Voiding trial in one week. If patient continues to have urinary retention, please refer patient to urology. Continue to hold coumadin and aspirin per Dr. Frye until you are re-evaluated outpatient in his office Per oncology SPECIALIST PHYSICIAN, Patient to follow up with Dr. Cha for repeat head CT in two weeks and radiation oncology will wean Decadron at that time Resume previous dose of Cortef after you are taken off the Decadron from Dr. Cha Hold Losartan for SBP less than 100 Hold Metoprolol for heart rate less than 60 Discharge Disposition: HOME WITH HOME HEALTH SERVICES
== END 2017-12-16 17:25 | disposition home health service (06) | DRG 698 ==
LOC: EC 02:20 → 5ONC 07:35
PROVIDERS: ADMIT Family Medicine; ATTEND Family Medicine
DX: T83.511A Infection and inflammatory reaction due to indwelling urethral catheter, initial encounter (principal); S06.5X9A Traumatic subdural hemorrhage with loss of consciousness of unspecified duration, initial encounter; E87.1 Hypo-osmolality and hyponatremia; C79.51 Secondary malignant neoplasm of bone; C77.4 Secondary and unspecified malignant neoplasm of inguinal and lower limb lymph nodes; B37.0 Candidal stomatitis; C79.31 Secondary malignant neoplasm of brain; E27.40 Unspecified adrenocortical insufficiency; I47.2 Ventricular tachycardia; G72.81 Critical illness myopathy; E86.0 Dehydration; C43.71 Malignant melanoma of right lower limb, including hip; I48.0 Paroxysmal atrial fibrillation; E11.9 Type 2 diabetes mellitus without complications; E03.9 Hypothyroidism, unspecified; J44.9 Chronic obstructive pulmonary disease, unspecified; N40.1 Benign prostatic hyperplasia with lower urinary tract symptoms; R33.8 Other retention of urine; Y73.8 Miscellaneous gastroenterology and urology devices associated with adverse incidents, not elsewhere classified; I25.10 Atherosclerotic heart disease of native coronary artery without angina pectoris; D63.0 Anemia in neoplastic disease; E78.5 Hyperlipidemia, unspecified; K21.9 Gastro-esophageal reflux disease without esophagitis; B96.20 Unspecified Escherichia coli [E. coli] as the cause of diseases classified elsewhere; Z79.899 Other long term (current) drug therapy; Z79.82 Long term (current) use of aspirin; Z79.84 Long term (current) use of oral hypoglycemic drugs; Z79.52 Long term (current) use of systemic steroids; Z79.01 Long term (current) use of anticoagulants; Z88.0 Allergy status to penicillin; Z95.810 Presence of automatic (implantable) cardiac defibrillator; Z95.1 Presence of aortocoronary bypass graft; Z87.891 Personal history of nicotine dependence; Z82.49 Family history of ischemic heart disease and other diseases of the circulatory system
CPT/HCPCS: 36415; 70450; 70460; 71045; 80053; 81001; 82550; 82553; 83036; 83605; 83735; 84484; 85025; 85610; 85730; 87040; 87077; 87086; 87186; 93005; 96360; 96361; 96374; 99285

== ENCOUNTER 2017-12-17 14:53 | Emergency (ER) | payer MEDICARE ==
[2017-12-17] MEDS ORDERED: SODIUM CHLORIDE 0.9% 1,000 ML IV STA ×4 (15:03→16:42)
[2017-12-17] MEDS ORDERED: IPRATROPIUM-ALBUTEROL 3 ML NEB INHALATION STA (15:03)
[2017-12-17 15:08] VITALS: TEMP 97.1
[2017-12-17 15:23] VITALS: BP 89/49; RESP 18
[2017-12-17 15:29] LABS: Appearance,Urine Clear (Clear); Bilirubin,Urine Negative (Negative); Blood,Urine Trace (Negative); Color,Urine Light Yellow; Glucose,Urine (UA) Negative (Negative); Ketones,Urine Negative (Negative); Leukocyte Esterase,Urine Negative (Negative); Mucus,Urine Rare /hpf; Nitrite,Urine Negative (Negative); Protein,Urine Negative (Negative); RBC,Urine 4 /hpf (0-5); Specific Gravity,Urine 1.009 (1.001-1.035); Urobilinogen,Urine <2.0 mg/dL (<2.0); WBC,Urine 3 /hpf (0-5)
--- NOTE | 2017-12-17 15:32 | ED ---
General Adult HPI - General Chief complaint: Shortness of Breath Stated complaint: nausea Time Seen by Provider: 12/17/17 15:02 Source: patient, EMS, RN notes reviewed, old records reviewed Mode of arrival: EMS Limitations: no limitations - History of Present Illness Initial comments: This is a 77-year-old male. This patient presents today for evaluation regarding altered mental state. Patient is unable to give medical history, history obtained from patient's chart EMS and transfer paperwork. - Related Data Home Medications Medication Instructions Recorded Confirmed Oxybutynin Chloride [Ditropan] 5 mg PO HS@2100 10/09/14 12/17/17 Docusate [Colace] 100 mg PO BID 12/03/15 12/17/17 Multivitamins, Thera [Multivitamin 1 tab PO DAILY 06/06/17 12/17/17 (formulary)] metFORMIN HCL ER [Glucophage Xr] 500 mg PO DAILY@1800 06/06/17 12/17/17 Metoprolol Succinate (ER) [Toprol 100 mg PO DAILY 06/07/17 12/17/17 XL] Amiodarone [Cordarone] 100 mg PO DAILY 12/10/17 12/17/17 Levothyroxine Sodium [Synthroid] 175 mcg PO DAILY 12/10/17 12/17/17 Losartan Potassium [Cozaar] 25 mg PO DAILY 12/10/17 12/17/17 Ondansetron [Zofran] 4 mg PO Q6H PRN 12/10/17 12/17/17 Spironolactone [Aldactone] 12.5 mg PO DAILY 12/10/17 12/17/17 levETIRAcetam [Keppra] 500 mg PO Q12HR 12/10/17 12/17/17 Previous Rx's Medication Instructions Recorded Dexamethasone [Decadron] 4 mg PO Q6H #60 tablet 12/16/17 HYDROcodone/APAP 7.5-325MG [Brackney 1 tab PO Q4H PRN 3 Days #18 tab 12/16/17 7.5-325] Levofloxacin [Levaquin] 750 mg PO DAILY #7 tab 12/16/17 Nystatin 100,000 Unit/ml Susp 5 ml PO QID #120 ml 12/16/17 [Mycostatin Oral Susp] Pantoprazole [Protonix] 40 mg PO AC-BID #60 12/16/17 Psyllium Husk 100% [Metamucil 6 gm PO DAILY packet 12/16/17 Packet] Tamsulosin [Flomax] 0.4 mg PO BID cap.er.24h 12/16/17 Allergies Allergy/AdvReac Type Severity Reaction Status Date / Time Penicillins Allergy Unknown Verified 12/17/17 15:40 Childhood Review of Systems ROS Statement: Those systems with pertinent positive or pertinent negative responses have been documented in the HPI. ROS Other: All systems not noted in ROS Statement are negative. Past Medical History Past Medical History: Cancer, COPD, Diabetes Mellitus, GERD/Reflux, Hyperlipidemia, Prostate Disorder, Thyroid Disorder Additional Past Medical History / Comment(s): SEE DR ZIMMER'S H&P,INCREASED FATIGUE,EMPHYSEMA,BRONCHITIS, MALIGNANT MELANOMA METS TO SPINE REC 6 TX RADIATION-APR 2013 History of Any Multi-Drug Resistant Organisms: None Reported Past Surgical History: AICD, Coronary Bypass/CABG Additional Past Surgical History / Comment(s): CABG-"CLEANED PUMONARY ARTERY", MELANOMA AND 10 LYMPHNODES REMOVED RT LEG,ORCHIECTOMY,REPAIR FINGER AMPUTATON Past Anesthesia/Blood Transfusion Reactions: No Reported Reaction Type of Cardiac Device: AICD Device Placement Date:: 2012 [facility] LT CHEST Past Psychological History: No Psychological Hx Reported Smoking Status: Former smoker Past Alcohol Use History: None Reported Past Drug Use History: None Reported - Past Family History Mother Family Medical History: Cancer Additional Family Medical History / Comment(s): cervical cancer Father Family Medical History: Myocardial Infarction ([place]) Son(s) Family Medical History: Myocardial Infarction ([place]) Additional Family Medical History / Comment(s): SONS X 2 General Exam Limitations: no limitations, altered mental status General appearance: alert, in no apparent distress, lethargic Head exam: Present: atraumatic, normocephalic, normal inspection Eye exam: Present: normal appearance, PERRL, EOMI. Absent: scleral icterus, conjunctival injection, periorbital swelling ENT exam: Present: normal exam, mucous membranes moist Neck exam: Present: normal inspection. Absent: tenderness, meningismus, lymphadenopathy Respiratory exam: Present: normal lung sounds bilaterally. Absent: respiratory distress, wheezes, rales, rhonchi, stridor Cardiovascular Exam: Present: regular rate, normal rhythm, normal heart sounds. Absent: systolic murmur, diastolic murmur, rubs, gallop, clicks GI/Abdominal exam: Present: soft, normal bowel sounds. Absent: distended, tenderness, guarding, rebound, rigid Extremities exam: Present: normal inspection, full ROM, normal capillary refill. Absent: tenderness, pedal edema, joint swelling, calf tenderness Back exam: Present: normal inspection Neurological exam: Present: alert, oriented X3, CN II-XII intact Psychiatric exam: Present: normal affect, normal mood Skin exam: Present: warm, dry, intact, normal color. Absent: rash Course Vital Signs 12/17/17 12/17/17 12/17/17 15:03 15:22 15:52 Temperature 97.1 F L Pulse Rate 60 61 68 Respiratory 20 18 Rate Blood Pressure 78/48 89/49 O2 Sat by Pulse 91 L 94 L Oximetry 12/17/17 16:11 Temperature Pulse Rate 72 Respiratory Rate Blood Pressure O2 Sat by Pulse Oximetry - Reevaluation(s) Reevaluation #1: 12/17/17 16:47 Medical record include prior hospitalization are reviewed EKG Findings - EKG Comments: EKG Findings:: EKG shows paced rhythm rate of 62, QRS 144, QTc 479 Medical Decision Making - Medical Decision Making 77-year-old male the ER for evaluation of altered mental status, not acting appropriately low blood pressure. Patient given significant resuscitation here in the emergency room blood pressure. Patient also hyponatremic recent hospitalization for exact same similar symptoms. Patient will be admitted for continued resuscitation and monitoring of electrolytes - Lab Data Result diagrams: 12/17/17 15:15 12/17/17 15:15 Lab Results 12/17/17 12/17/17 12/17/17 Range/Units 15:10 15:15 15:15 WBC 10.7 H (3.8-10.6) k/uL RBC 3.51 L (4.30-5.90) m/uL Hgb 11.1 L (13.0-17.5) gm/dL Hct 32.5 L (39.0-53.0) % MCV 92.5 (80.0-100.0) fL MCH 31.5 (25.0-35.0) pg MCHC 34.1 (31.0-37.0) g/dL RDW 16.0 H (11.5-15.5) % Plt Count 199 (150-450) k/uL Neutrophils % 87 % Lymphocytes % 8 % Monocytes % 4 % Eosinophils % 1 % Basophils % 0 % Neutrophils # 9.2 H (1.3-7.7) k/uL Lymphocytes # 0.9 L (1.0-4.8) k/uL Monocytes # 0.4 (0-1.0) k/uL Eosinophils # 0.1 (0-0.7) k/uL Basophils # 0.0 (0-0.2) k/uL PT (9.0-12.0) sec INR (<1.2) APTT (22.0-30.0) sec Sodium (137-145) mmol/L Potassium (3.5-5.1) mmol/L Chloride (98-107) mmol/L Carbon Dioxide (22-30) mmol/L Anion Gap mmol/L BUN (9-20) mg/dL Creatinine (0.66-1.25) mg/dL Est GFR (CKD-EPI)AfAm (>60 ml/min/1.73 sqM) Est GFR (CKD-EPI)NonAf (>60 ml/min/1.73 sqM) Glucose (74-99) mg/dL Plasma Lactic Acid [place] (0.7-2.0) mmol/L Calcium (8.4-10.2) mg/dL Phosphorus (2.5-4.5) mg/dL Magnesium (1.6-2.3) mg/dL Total Bilirubin (0.2-1.3) mg/dL AST (17-59) U/L ALT (21-72) U/L Alkaline Phosphatase (38-126) U/L Total Creatine Kinase <20 L (55-170) U/L CK-MB (CK-2) 0.3 (0.0-2.4) ng/mL CK-MB (CK-2) Rel Index Troponin I <0.012 (0.000-0.034) ng/mL NT-Pro-B Natriuret Pep pg/mL Total Protein (6.3-8.2) g/dL Albumin (3.5-5.0) g/dL TSH (0.465-4.680) mIU/L Urine Color Light Yellow Urine Appearance Clear (Clear) Urine pH 7.0 (5.0-8.0) Ur Specific [place] 1.009 (1.001-1.035) Urine Protein Negative (Negative) Urine Glucose (UA) Negative (Negative) Urine Ketones Negative (Negative) Urine Blood Trace H (Negative) Urine Nitrite Negative (Negative) Urine Bilirubin Negative (Negative) Urine Urobilinogen <2.0 (<2.0) mg/dL Ur Leukocyte Esterase Negative (Negative) Urine RBC 4 (0-5) /hpf Urine WBC 3 (0-5) /hpf Urine Mucus Rare H (None) /hpf 12/17/17 12/17/17 12/17/17 Range/Units 15:15 15:15 15:15 WBC (3.8-10.6) k/uL RBC (4.30-5.90) m/uL Hgb (13.0-17.5) gm/dL Hct (39.0-53.0) % MCV (80.0-100.0) fL MCH (25.0-35.0) pg MCHC (31.0-37.0) g/dL RDW (11.5-15.5) % Plt Count (150-450) k/uL Neutrophils % % Lymphocytes % % Monocytes % % Eosinophils % % Basophils % % Neutrophils # (1.3-7.7) k/uL Lymphocytes # (1.0-4.8) k/uL Monocytes # (0-1.0) k/uL Eosinophils # (0-0.7) k/uL Basophils # (0-0.2) k/uL PT (9.0-12.0) sec INR (<1.2) APTT (22.0-30.0) sec Sodium 125 L (137-145) mmol/L Potassium 4.5 (3.5-5.1) mmol/L Chloride 94 L (98-107) mmol/L Carbon Dioxide 23 (22-30) mmol/L Anion Gap 8 mmol/L BUN 25 H (9-20) mg/dL Creatinine 0.80 (0.66-1.25) mg/dL Est GFR (CKD-EPI)AfAm >90 (>60 ml/min/1.73 sqM) Est GFR (CKD-EPI)NonAf 85 (>60 ml/min/1.73 sqM) Glucose 87 (74-99) mg/dL Plasma Lactic Acid [place] 1.8 (0.7-2.0) mmol/L Calcium 8.3 L (8.4-10.2) mg/dL Phosphorus 3.5 (2.5-4.5) mg/dL Magnesium 1.6 (1.6-2.3) mg/dL Total Bilirubin 0.9 (0.2-1.3) mg/dL AST 33 (17-59) U/L ALT 40 (21-72) U/L Alkaline Phosphatase 47 (38-126) U/L Total Creatine Kinase (55-170) U/L CK-MB (CK-2) (0.0-2.4) ng/mL CK-MB (CK-2) Rel Index Troponin I (0.000-0.034) ng/mL NT-Pro-B Natriuret Pep 631 pg/mL Total Protein 5.3 L (6.3-8.2) g/dL Albumin 2.8 L (3.5-5.0) g/dL TSH 1.410 (0.465-4.680) mIU/L Urine Color Urine Appearance (Clear) Urine pH (5.0-8.0) Ur Specific [place] (1.001-1.035) Urine Protein (Negative) Urine Glucose (UA) (Negative) Urine Ketones (Negative) Urine Blood (Negative) Urine Nitrite (Negative) Urine Bilirubin (Negative) Urine Urobilinogen (<2.0) mg/dL Ur Leukocyte Esterase (Negative) Urine RBC (0-5) /hpf Urine WBC (0-5) /hpf Urine Mucus (None) /hpf 12/17/17 Range/Units 15:15 WBC (3.8-10.6) k/uL RBC (4.30-5.90) m/uL Hgb (13.0-17.5) gm/dL Hct (39.0-53.0) % MCV (80.0-100.0) fL MCH (25.0-35.0) pg MCHC (31.0-37.0) g/dL RDW (11.5-15.5) % Plt Count (150-450) k/uL Neutrophils % % Lymphocytes % % Monocytes % % Eosinophils % % Basophils % % Neutrophils # (1.3-7.7) k/uL Lymphocytes # (1.0-4.8) k/uL Monocytes # (0-1.0) k/uL Eosinophils # (0-0.7) k/uL Basophils # (0-0.2) k/uL PT 10.5 (9.0-12.0) sec INR 1.1 (<1.2) APTT 22.9 (22.0-30.0) sec Sodium (137-145) mmol/L Potassium (3.5-5.1) mmol/L Chloride (98-107) mmol/L Carbon Dioxide (22-30) mmol/L Anion Gap mmol/L BUN (9-20) mg/dL Creatinine (0.66-1.25) mg/dL Est GFR (CKD-EPI)AfAm (>60 ml/min/1.73 sqM) Est GFR (CKD-EPI)NonAf (>60 ml/min/1.73 sqM) Glucose (74-99) mg/dL Plasma Lactic Acid [place] (0.7-2.0) mmol/L Calcium (8.4-10.2) mg/dL Phosphorus (2.5-4.5) mg/dL Magnesium (1.6-2.3) mg/dL Total Bilirubin (0.2-1.3) mg/dL AST (17-59) U/L ALT (21-72) U/L Alkaline Phosphatase (38-126) U/L Total Creatine Kinase (55-170) U/L CK-MB (CK-2) (0.0-2.4) ng/mL CK-MB (CK-2) Rel Index Troponin I (0.000-0.034) ng/mL NT-Pro-B Natriuret Pep pg/mL Total Protein (6.3-8.2) g/dL Albumin (3.5-5.0) g/dL TSH (0.465-4.680) mIU/L Urine Color Urine Appearance (Clear) Urine pH (5.0-8.0) Ur Specific [place] (1.001-1.035) Urine Protein (Negative) Urine Glucose (UA) (Negative) Urine Ketones (Negative) Urine Blood (Negative) Urine Nitrite (Negative) Urine Bilirubin (Negative) Urine Urobilinogen (<2.0) mg/dL Ur Leukocyte Esterase (Negative) Urine RBC (0-5) /hpf Urine WBC (0-5) /hpf Urine Mucus (None) /hpf - Radiology Data Radiology results: report reviewed (Chest x-rays negative for acute disease), image reviewed Disposition Clinical Impression: Hyponatremia, Generalized muscle weakness, Altered mental status, Dehydration, Nausea and vomiting Disposition: ADMITTED IP TO THIS [facility] Condition: Critical Is patient prescribed a controlled substance at d/c from ED?: No Referrals: Quentin Arambula MD [Primary Care Provider] - 1-2 days
[2017-12-17 15:44] LABS: ALT 40 U/L (21-72); AST 33 U/L (17-59); Albumin 2.8 g/dL (3.5-5.0); Alkaline Phosphatase 47 U/L (38-126); Anion Gap 8 mmol/L; Basophils % (A) 0 %; Blood Urea Nitrogen 25 mg/dL (9-20); Calcium 8.3 mg/dL (8.4-10.2); Carbon Dioxide 23 mmol/L (22-30); Chloride 94 mmol/L (98-107); Eosinophils # (A) 0.1 k/uL (0-0.7); Eosinophils % (A) 1 %; Glucose 87 mg/dL (74-99); HCT 32.5 % (39.0-53.0); HGB 11.1 gm/dL (13.0-17.5); Lymphocytes # (A) 0.9 k/uL (1.0-4.8); Lymphocytes % (A) 8 %; MCH 31.5 pg (25.0-35.0); MCHC 34.1 g/dL (31.0-37.0); MCV 92.5 fL (80.0-100.0); Magnesium 1.6 mg/dL (1.6-2.3); Mean Platelet Volume 6.4; Monocytes # (A) 0.4 k/uL (0-1.0); Monocytes % (A) 4 %; Neutrophils # (A) 9.2 k/uL (1.3-7.7); Neutrophils % (A) 87 %; Phosphorus 3.5 mg/dL (2.5-4.5); Platelet Count 199 k/uL (150-450); Potassium 4.5 mmol/L (3.5-5.1); RBC 3.51 m/uL (4.30-5.90); Sodium 125 mmol/L (137-145); Total Bilirubin 0.9 mg/dL (0.2-1.3); Total Protein 5.3 g/dL (6.3-8.2); WBC 10.7 k/uL (3.8-10.6)
[2017-12-17 15:53] LABS: INR 1.1 (<1.2); Partial Thromboplastin Time 22.9 sec (22.0-30.0); Prothrombin Time 10.5 sec (9.0-12.0)
[2017-12-17 15:55] LABS: Creatine Kinase <20 U/L (55-170)
[2017-12-17 16:07] LABS: Creatine Kinase MB 0.3 ng/mL (0.0-2.4); Troponin I <0.012 ng/mL (0.000-0.034)
[2017-12-17 16:12] VITALS: PULSE 72
[2017-12-17] MEDS ORDERED: SODIUM CHLORIDE 0.9% 1,000 ML IV SCH (16:45)
[2017-12-17] MEDS ORDERED: SODIUM CHLORIDE 0.9% 500 ML IV SCH (16:45)
--- NOTE | 2017-12-17 17:07 | ED ---
Medical Decision Making - Lab Data Result diagrams: 12/17/17 15:15 12/17/17 15:15 Lab Results 12/17/17 12/17/17 12/17/17 Range/Units 15:10 15:15 15:15 WBC 10.7 H (3.8-10.6) k/uL RBC 3.51 L (4.30-5.90) m/uL Hgb 11.1 L (13.0-17.5) gm/dL Hct 32.5 L (39.0-53.0) % MCV 92.5 (80.0-100.0) fL MCH 31.5 (25.0-35.0) pg MCHC 34.1 (31.0-37.0) g/dL RDW 16.0 H (11.5-15.5) % Plt Count 199 (150-450) k/uL Neutrophils % 87 % Lymphocytes % 8 % Monocytes % 4 % Eosinophils % 1 % Basophils % 0 % Neutrophils # 9.2 H (1.3-7.7) k/uL Lymphocytes # 0.9 L (1.0-4.8) k/uL Monocytes # 0.4 (0-1.0) k/uL Eosinophils # 0.1 (0-0.7) k/uL Basophils # 0.0 (0-0.2) k/uL PT (9.0-12.0) sec INR (<1.2) APTT (22.0-30.0) sec Sodium (137-145) mmol/L Potassium (3.5-5.1) mmol/L Chloride (98-107) mmol/L Carbon Dioxide (22-30) mmol/L Anion Gap mmol/L BUN (9-20) mg/dL Creatinine (0.66-1.25) mg/dL Est GFR (CKD-EPI)AfAm (>60 ml/min/1.73 sqM) Est GFR (CKD-EPI)NonAf (>60 ml/min/1.73 sqM) Glucose (74-99) mg/dL Plasma Lactic Acid [place] (0.7-2.0) mmol/L Calcium (8.4-10.2) mg/dL Phosphorus (2.5-4.5) mg/dL Magnesium (1.6-2.3) mg/dL Total Bilirubin (0.2-1.3) mg/dL AST (17-59) U/L ALT (21-72) U/L Alkaline Phosphatase (38-126) U/L Total Creatine Kinase <20 L (55-170) U/L CK-MB (CK-2) 0.3 (0.0-2.4) ng/mL CK-MB (CK-2) Rel Index Troponin I <0.012 (0.000-0.034) ng/mL NT-Pro-B Natriuret Pep pg/mL Total Protein (6.3-8.2) g/dL Albumin (3.5-5.0) g/dL TSH (0.465-4.680) mIU/L Urine Color Light Yellow Urine Appearance Clear (Clear) Urine pH 7.0 (5.0-8.0) Ur Specific [place] 1.009 (1.001-1.035) Urine Protein Negative (Negative) Urine Glucose (UA) Negative (Negative) Urine Ketones Negative (Negative) Urine Blood Trace H (Negative) Urine Nitrite Negative (Negative) Urine Bilirubin Negative (Negative) Urine Urobilinogen <2.0 (<2.0) mg/dL Ur Leukocyte Esterase Negative (Negative) Urine RBC 4 (0-5) /hpf Urine WBC 3 (0-5) /hpf Urine Mucus Rare H (None) /hpf 12/17/17 12/17/17 12/17/17 Range/Units 15:15 15:15 15:15 WBC (3.8-10.6) k/uL RBC (4.30-5.90) m/uL Hgb (13.0-17.5) gm/dL Hct (39.0-53.0) % MCV (80.0-100.0) fL MCH (25.0-35.0) pg MCHC (31.0-37.0) g/dL RDW (11.5-15.5) % Plt Count (150-450) k/uL Neutrophils % % Lymphocytes % % Monocytes % % Eosinophils % % Basophils % % Neutrophils # (1.3-7.7) k/uL Lymphocytes # (1.0-4.8) k/uL Monocytes # (0-1.0) k/uL Eosinophils # (0-0.7) k/uL Basophils # (0-0.2) k/uL PT (9.0-12.0) sec INR (<1.2) APTT (22.0-30.0) sec Sodium 125 L (137-145) mmol/L Potassium 4.5 (3.5-5.1) mmol/L Chloride 94 L (98-107) mmol/L Carbon Dioxide 23 (22-30) mmol/L Anion Gap 8 mmol/L BUN 25 H (9-20) mg/dL Creatinine 0.80 (0.66-1.25) mg/dL Est GFR (CKD-EPI)AfAm >90 (>60 ml/min/1.73 sqM) Est GFR (CKD-EPI)NonAf 85 (>60 ml/min/1.73 sqM) Glucose 87 (74-99) mg/dL Plasma Lactic Acid [place] 1.8 (0.7-2.0) mmol/L Calcium 8.3 L (8.4-10.2) mg/dL Phosphorus 3.5 (2.5-4.5) mg/dL Magnesium 1.6 (1.6-2.3) mg/dL Total Bilirubin 0.9 (0.2-1.3) mg/dL AST 33 (17-59) U/L ALT 40 (21-72) U/L Alkaline Phosphatase 47 (38-126) U/L Total Creatine Kinase (55-170) U/L CK-MB (CK-2) (0.0-2.4) ng/mL CK-MB (CK-2) Rel Index Troponin I (0.000-0.034) ng/mL NT-Pro-B Natriuret Pep 631 pg/mL Total Protein 5.3 L (6.3-8.2) g/dL Albumin 2.8 L (3.5-5.0) g/dL TSH 1.410 (0.465-4.680) mIU/L Urine Color Urine Appearance (Clear) Urine pH (5.0-8.0) Ur Specific [place] (1.001-1.035) Urine Protein (Negative) Urine Glucose (UA) (Negative) Urine Ketones (Negative) Urine Blood (Negative) Urine Nitrite (Negative) Urine Bilirubin (Negative) Urine Urobilinogen (<2.0) mg/dL Ur Leukocyte Esterase (Negative) Urine RBC (0-5) /hpf Urine WBC (0-5) /hpf Urine Mucus (None) /hpf 12/17/17 Range/Units 15:15 WBC (3.8-10.6) k/uL RBC (4.30-5.90) m/uL Hgb (13.0-17.5) gm/dL Hct (39.0-53.0) % MCV (80.0-100.0) fL MCH (25.0-35.0) pg MCHC (31.0-37.0) g/dL RDW (11.5-15.5) % Plt Count (150-450) k/uL Neutrophils % % Lymphocytes % % Monocytes % % Eosinophils % % Basophils % % Neutrophils # (1.3-7.7) k/uL Lymphocytes # (1.0-4.8) k/uL Monocytes # (0-1.0) k/uL Eosinophils # (0-0.7) k/uL Basophils # (0-0.2) k/uL PT 10.5 (9.0-12.0) sec INR 1.1 (<1.2) APTT 22.9 (22.0-30.0) sec Sodium (137-145) mmol/L Potassium (3.5-5.1) mmol/L Chloride (98-107) mmol/L Carbon Dioxide (22-30) mmol/L Anion Gap mmol/L BUN (9-20) mg/dL Creatinine (0.66-1.25) mg/dL Est GFR (CKD-EPI)AfAm (>60 ml/min/1.73 sqM) Est GFR (CKD-EPI)NonAf (>60 ml/min/1.73 sqM) Glucose (74-99) mg/dL Plasma Lactic Acid [place] (0.7-2.0) mmol/L Calcium (8.4-10.2) mg/dL Phosphorus (2.5-4.5) mg/dL Magnesium (1.6-2.3) mg/dL Total Bilirubin (0.2-1.3) mg/dL AST (17-59) U/L ALT (21-72) U/L Alkaline Phosphatase (38-126) U/L Total Creatine Kinase (55-170) U/L CK-MB (CK-2) (0.0-2.4) ng/mL CK-MB (CK-2) Rel Index Troponin I (0.000-0.034) ng/mL NT-Pro-B Natriuret Pep pg/mL Total Protein (6.3-8.2) g/dL Albumin (3.5-5.0) g/dL TSH (0.465-4.680) mIU/L Urine Color Urine Appearance (Clear) Urine pH (5.0-8.0) Ur Specific [place] (1.001-1.035) Urine Protein (Negative) Urine Glucose (UA) (Negative) Urine Ketones (Negative) Urine Blood (Negative) Urine Nitrite (Negative) Urine Bilirubin (Negative) Urine Urobilinogen (<2.0) mg/dL Ur Leukocyte Esterase (Negative) Urine RBC (0-5) /hpf Urine WBC (0-5) /hpf Urine Mucus (None) /hpf Critical Care Time Critical Care Time: Yes Total Critical Care Time: 31 Disposition Clinical Impression: Hyponatremia, Generalized muscle weakness, Altered mental status, Dehydration, Nausea and vomiting Disposition: ADMITTED IP TO THIS [facility] Condition: Critical Referrals: Quentin Arambula MD [Primary Care Provider] - 1-2 days
[2017-12-17] MEDS ORDERED: MORPHINE SULFATE 4 MG/ML SYRINGE IVP STA (17:20)
--- NOTE | 2017-12-17 17:38 | XR ---
EXAMINATION: XR chest 1V portable DATE AND TIME: 12/17/2017 5:17 PM CLINICAL INDICATION: sob TECHNIQUE: AP upright portable COMPARISON: 12/10/2017 at 3:24 AM FINDINGS: Cardiac pacemaker and EKG leads noted. The cardiac silhouette is moderately enlarged, unchanged. The left hemidiaphragm is silhouetted, consistent with prominent volume of left lower lobe airlessnes s. There is a subtle partial silhouetting of the right hemidiaphragm, consistent with partial airless ness of the right lower lobe. The mid and upper lungs are unremarkable. The pleural spaces are negative as seen. The skeletal structures and soft tissues are negative for acute findings. IMPRESSION: Bibasilar airlessness consistent with basilar atelectasis and/or pneumonia.
[2017-12-18] MEDS ORDERED: ENOXAPARIN 40 MG/0.4 ML SYRINGE SQ SCH (09:00)
== END 2017-12-17 19:14 | disposition other institution (70) ==
LOC: EC 14:53
DX: E87.1 Hypo-osmolality and hyponatremia (principal); E86.0 Dehydration; M62.81 Muscle weakness (generalized); R41.82 Altered mental status, unspecified; R11.2 Nausea with vomiting, unspecified; E11.9 Type 2 diabetes mellitus without complications; K21.9 Gastro-esophageal reflux disease without esophagitis; E07.9 Disorder of thyroid, unspecified; Z85.820 Personal history of malignant melanoma of skin; Z85.830 Personal history of malignant neoplasm of bone; Z87.891 Personal history of nicotine dependence; Z95.810 Presence of automatic (implantable) cardiac defibrillator; Z95.1 Presence of aortocoronary bypass graft; Z98.890 Other specified postprocedural states; Z79.84 Long term (current) use of oral hypoglycemic drugs; Z79.899 Other long term (current) drug therapy; Z88.0 Allergy status to penicillin
CPT/HCPCS: 36415; 71045; 80053; 81001; 82550; 82553; 83605; 83735; 83880; 84100; 84443; 84484; 85025; 85610; 85730; 87040; 87086; 93005; 94640; 96360; 99291